=== PATIENT | female | born 1990 | race Asian ===

== ENCOUNTER 2016-08-30 19:42 | Emergency (ER) | payer OTHER ==
[~2016-08-30] VITALS: Ht 154.9 cm; Wt 103.5 kg
[~2016-08-30 19:42] MED LIST: ACET-141 PO; ACET325T33 PO; BENZ100C70 PO; DICY10CA60 PO; FAMO-18 PO; MAG-19 PO; METO10TA92 PO; MUPI22OI2 TOP; NITR-58 PO; OMEP20CA16 PO; ONDA4TAB35 PO; ULT50 PO
[2016-08-30 19:45] VITALS: Ht 154.9 cm; Wt 103.5 kg
[2016-08-30 21:08] LABS: BASOPHILS % 0.1 % (0.0-2.0); EOSINOPHILS # 0.1 10^3/ul (0.0-0.5); EOSINOPHILS % 0.6 % (0.0-7.0); HEMATOCRIT 36.5 % (37.0-47.0); HEMOGLOBIN 12.5 g/dl (12.0-16.0); LYMPHOCYTES # 3.3 10^3/ul (0.8-2.9); LYMPHOCYTES % 29.9 % (15.0-51.0); MEAN CORPUSCULAR HEMOGLOBIN 28.9 pg (29.0-33.0); MEAN CORPUSCULAR HGB CONC 34.3 g/dl (32.0-37.0); MEAN CORPUSCULAR VOLUME 84.2 fl (82.0-101.0); MEAN PLATELET VOLUME 7.6 fl (7.4-10.4); MONOCYTE # 0.6 10^3/ul (0.3-0.9); MONOCYTES % 5.7 % (0.0-11.0); NEUTROPHILS % 63.7 % (39.0-77.0); PLATELET COUNT 262 10^3/UL (140-440); RED BLOOD COUNT 4.33 10^6/ul (4.20-5.40); RED CELL DISTRIBUTION WIDTH 12.6 % (11.5-14.5); UNCORRECTED WBC 10.9 10^3/ul (4.8-10.8); WHITE BLOOD COUNT 10.9 10^3/ul (4.8-10.8)
[2016-08-30 21:12] LABS: ADD UMIC YES; CONDITION 1; URINE BILIRUBIN (Dip) NEGATIVE (NEGATIVE); URINE BLOOD (Dip) TRACE (NEGATIVE); URINE COLOR LT. YELLOW (YELLOW); URINE GLUCOSE (Dip) NEGATIVE (NEGATIVE); URINE KETONES (Dip) NEGATIVE (NEGATIVE); URINE LEUKOCYTE ESTERASE (Dip) TRACE (NEGATIVE); URINE NITRITE (Dip) NEGATIVE (NEGATIVE); URINE TOTAL PROTEIN (Dip) NEGATIVE (NEGATIVE); URINE UROBILINOGEN (Dip) 0.2 E.U./dL (0.1-1.0)
[2016-08-30 21:14] LABS: ALBUMIN 3.9 g/dl (3.3-4.9); POTASSIUM 3.8 mmol/L (3.5-5.1)
[2016-08-30 21:16] LABS: CREATININE 0.53 mg/dl (0.44-1.00)
[2016-08-30 21:17] LABS: ALBUMIN/GLOBULIN RATIO 0.97; CALCIUM 9.2 mg/dl (8.4-10.2); TOTAL PROTEIN 7.9 g/dl (6.1-8.1)
--- NOTE | 2016-08-30 21:24 | RADRPT ---
PROCEDURE: US OB. CLINICAL INDICATION: Abdominal pain, . TECHNIQUE: Multiple sonographic images of the pelvis were obtained. Transabdominal imaging only w as performed. The images were reviewed on a PACS workstation. COMPARISON: No prior studies are available for comparison. FINDINGS: There is a single viable intrauterine gestation. Cardiac activity is present with 154 beats per minute. Measurements were made in order to determine age. The results are as follows: BPD = 2.36 cm HC = 9.16 cm AC = 9.04 cm FL = 1.36 cm Estimated gestational age of approximately 14 weeks 3 days. The estimated date of delivery is 02/25/2017. The EFW = 102 g. The placenta is posterior. There is no evidence for an abruption. There is a normal amount of amniotic fluid. The MVP measures 3.6 cm. IMPRESSION: 1. Single viable intrauterine gestation of approximately 14 weeks 3 days, based on ultrasound measu rements. The estimated date of delivery is 02/25/2017. RPTAT: HTAR .Aman Quintero MD, Date Time Electronically viewed and signed by .Aman Quintero MD, on 08/30/2016 21:23 .R/
[2016-08-30 21:29] LABS: SQUAMOUS EPITHELIAL CELL,UR FEW
[2016-08-30 21:30] LABS: BACTERIA,URINE MODERATE
[2016-08-30] MEDS ORDERED: ONDA4TAB14 PO (22:46)
[2016-08-30] MEDS ORDERED: ALBU8.5H3 INH (22:46)
--- NOTE | 2016-08-30 22:57 | ERD ---
ER Documentation Chief Complaint Date/Time DATE: 08/30/16 TIME: 22:51 Chief Complaint belly pressure/cramps since lasst fostere,15 weeks preg HPI 25-year-old female who is a presents to the ED complaining of lower abdominal pain that started last night. Reports that it feels like a cramping sensation and rates it a 9 out of 10. States that she is also here for medication refill for Zofran as well as her pro-air. States that she feels like she gets nauseous but denies any recent vomiting. Denies any fever, chills , chest pain, shortness of breath. States that her last menses was sometime in May but is unsure of exact date. Denies any vaginal discharge, vaginal bleeding. Denies any dysuria, urgency, frequency. ROS All systems reviewed and are negative except as per history of present illness. Medications Home Meds Active Scripts Albuterol Sulfate* (Proair HFA*) 8.5 Gm Hfa.aer.ad, 2 PUFF INH Q4, #1 INHALER Prov:GABE VERDIN PA-C 08/30/16 Ondansetron (Ondansetron Odt) 4 Mg Tab.rapdis, 4 MG PO Q6H Y for NAUSEA AND/OR VOMITING, #10 TAB Prov:GABE VERDIN PA-C 08/30/16 Metoclopramide* (Reglan*) 10 Mg Tablet, 10 MG PO Q6 Y for NAUSEA AND/OR VOMITING , #15 TAB Prov:APARNA SANCHEZ PA-C 08/04/16 Acetaminophen* (Tylenol*) 325 Mg Tablet, 1 TAB PO Q6 Y for PAIN AND OR ELEVATED TEMP, #20 TAB Prov:JACKELYN LUZ NP 06/28/16 Nitrofurantoin Monohyd Macrocr* (Macrobid*) 100 Mg Capsr, 100 MG PO BID for 5 Days, CAP Prov:JACKELYN LUZ NP 06/28/16 Mupirocin* (Bactroban*) 2% -22 Gram Oint...g., 1 APPLIC TOP BID for 7 Days, EA Prov:GABE VERDIN PA-C 03/09/16 Benzonatate* (Tessalon Perle*) 100 Mg Capsule, 100 MG PO TID, #30 CAP Prov:YUE WESTFALL NP 11/04/15 Acetaminophen* (Acetaminophen*) 500 MG Extra Strength Tablet, 500 MG PO Q4H Y for PAIN AND OR ELEVATED TEMP, #30 TAB Prov:YUE WESTFALL NP 11/04/15 Dicyclomine Hcl* (Bentyl*) 10 Mg Capsule, 10 MG PO QID, #20 CAP Prov:YUE WESTFALL NP 11/04/15 Famotidine* (Pepcid*) 20 Mg Tablet, 20 MG PO BID for 4 Days, TAB Prov:ANDREW WEBER PA-C 07/07/15 Acetaminophen* (Tylenol*) 325 Mg Tablet, 2 TAB PO Q6 Y for PAIN AND OR ELEVATED TEMP, #20 TAB Prov:ANDREW WEBRE PA-C 07/07/15 Magaldrate/Simethicone* (Mylanta*) 355 Ml Susp, 30 ML PO QID Y for GASTROINTESTINAL UPSET, #1 BOTTLE Prov:YUE WESTFALL NP 05/28/15 Omeprazole* (Omeprazole*) 20 Mg Capsule.dr, 20 MG PO DAILY, #30 CAP Prov:YUE WESTFALL NP 05/28/15 Ondansetron Hcl* (Zofran* ODT) 4 mg -ODT Tab.disper, 4 MG PO Q8 Y for NAUSEA AND /OR VOMITING, #30 TAB Prov:YUE WESTFALL NP 05/09/15 Tramadol HCl (Tramadol HCl) 50 Mg Tab, 50 MG PO Q4 Y for PAIN, #20 TAB Prov:QI HENLEY PA-C 05/06/15 Reported Medications [none] Unknown Strength No Conflict Check 11/04/15 [None] No Conflict Check 06/06/12 Allergies Allergies: Coded Allergies: ibuprofen (Verified Allergy, Unknown, 07/03/16) oxycodone (Verified Allergy, Unknown, 07/03/16) PMhx/Soc History of Surgery: Yes (C section) Anesthesia Reaction: No Hx Neurological Disorder: No Hx Respiratory Disorders: No Hx Cardiac Disorders: No Hx Psychiatric Problems: No Hx Miscellaneous Medical Probl: Yes (Hypothyroidism, asthma) Hx Alcohol Use: No Hx Substance Use: No Hx Tobacco Use: No Smoking Status: Never smoker Physical Exam Vitals Vital Signs Date Time Temp Pulse Resp B/P Pulse Ox O2 Delivery O2 Flow Rate FiO2 08/30/16 19:45 98.9 97 20 127/85 99 Physical Exam Const: Ulr-gdb-[id number], well-nourished. In no acute distress. Head: Atraumatic, normocephalic Eyes: Normal Conjunctiva without injection. No purulent discharge. ENT: Normal external ear, nose. Moist oropharynx without tonsillar exudates. Non -erythematous pharynx. Uvula midline. No drooling. No trismus. Neck: No cervical midline tenderness. Full range of motion. No meningismus. No cervical lymphadenopathy. No JVD. Resp: Clear to auscultation bilaterally. No wheezing, rhonchi, rales, or crackles. No accessory muscle use. No retractions. Cardio: Regular rate and rhythm. No murmurs, rubs or gallops. Abd: Soft, slightly tender to palpation of lower abdomen, non distended. Normal bowel sounds. No palpable masses. No rebound tenderness. No guarding. Negative McBurney's point. Negative psoas sign. Negative obturator sign. Skin: No petechiae or rashes Back: No midline tenderness. No CVA tenderness. Ext: No cyanosis, or edema. Neur: Awake and alert. Normal gait. Normal coordination. Psych: Normal Mood and Affect Result Diagram: 08/30/16204308/30/162043 Results 24 hrs Laboratory Tests Test 08/30/16 20:44 Alanine Aminotransferase (ALT/SGPT) 18IU/L Albumin 3.9g/dl Albumin/Globulin Ratio 0.97 Alkaline Phosphatase 67IU/L Anion Gap 19 Aspartate Amino Transf (AST/SGOT) 12IU/L Basophils # 0.010^3/ul Basophils % 0.1% Beta HCG, Quantitative 53170.0mIU/ml Blood Morphology Comment Blood Urea Nitrogen 9mg/dl Calcium Level 9.2mg/dl Carbon Dioxide Level 25mmol/L Chloride Level 103mmol/L Creatinine 0.53mg/dl Direct Bilirubin 0.00mg/dl Eosinophils # 0.110^3/ul Eosinophils % 0.6% Globulin 4.00g/dl Glucose Level 87mg/dl Hematocrit 36.5% Hemoglobin 12.5g/dl Indirect Bilirubin 0.0mg/dl Lipase 52U/L Lymphocytes # 3.310^3/ul Lymphocytes % 29.9% Mean Corpuscular Hemoglobin 28.9pg Mean Corpuscular Hemoglobin Concent 34.3g/dl Mean Corpuscular Volume 84.2fl Mean Platelet Volume 7.6fl Monocytes # 0.610^3/ul Monocytes % 5.7% Neutrophils # 7.010^3/ul Neutrophils % 63.7% Nucleated Red Blood Cells # 0.010^3/ul Nucleated Red Blood Cells % 0.0/100WBC Platelet Count 23635^3/UL Potassium Level 3.8mmol/L Red Blood Count 4.3310^6/ul Red Cell Distribution Width 12.6% Sodium Level 143mmol/L Total Bilirubin 0.0mg/dl Total Protein 7.9g/dl Urine Bacteria MODERATE Urine Bilirubin NEGATIVE Urine Clarity CLEAR Urine Color LT. YELLOW Urine Glucose NEGATIVE% Urine Hemoglobin TRACE Urine Ketones NEGATIVE Urine Leukocyte Esterase TRACE Urine Microscopic RBC 2-5/HPF Urine Microscopic WBC 0-2/HPF Urine Nitrite NEGATIVE Urine Specific [place] 1.025 Urine Squamous Epithelial Cells FEW Urine Total Protein NEGATIVE Urine Urobilinogen 0.2 E.U./dL Urine pH 6.0 White Blood Count 10.910^3/ul Procedures/MDM This is a 25-year-old female who is a presents the ED complaining of lower abdominal pain that started last night. Patient is afebrile nontoxic appearing. Patient has normal vital signs. An ultrasound, beta-hCG, CBC, type and RH, UA was ordered to evaluate patient. CBC: No evidence of severe infection or anemia Urine: No elevation in nitrites, leukocyte esterase, hematuria. No evidence of UTI Rh: A positive. No indication for Rhogam at this time. beta Hc PROCEDURE: US OB. CLINICAL INDICATION: Abdominal pain, . TECHNIQUE: Multiple sonographic images of the pelvis were obtained. Transabdominal imaging only was performed. The images were reviewed on a PACS workstation. COMPARISON: No prior studies are available for comparison. FINDINGS: There is a single viable intrauterine gestation. Cardiac activity is present with 154 beats per minute. Measurements were made in order to determine age. The results are as follows: BPD = 2.36 cm HC = 9.16 cm AC = 9.04 cm FL = 1.36 cm Estimated gestational age of approximately 14 weeks 3 days. The estimated date of delivery is 02/25/2017. The EFW = 102 g. The placenta is posterior. There is no evidence for an abruption. There is a normal amount of amniotic fluid. The MVP measures 3.6 cm. IMPRESSION: 1. Single viable intrauterine gestation of approximately 14 weeks 3 days, based on ultrasound measurements. The estimated date of delivery is 02/25/2017. Low suspicion for symptomatic anemia, ectopic , sepsis, PID, appendicitis, placenta previa, placenta abruptio, ovarian torsion, tubo-ovarian abscess, surgical abdomen, or other emergent conditions. Patient was educated that there is a risk for threatened . Discharge: Refill for Lon Cummings Patient to follow up with WAVE SOLDERING MACHINE OPERATOR in 2 days for further evaluation and treatment. Patient is to return sooner to the ED for any worsening symptoms. Patient's questions were answered. Patient understood and agreed with discharge plan. Departure Diagnosis: Primary Impression: Abdominal pain in Trimester: second trimester Qualified Code: O26.892 - Abdominal pain in , second trimester Additional Impression: Medication refill Condition: Stable Patient Instructions: : Your Second Trimester Changes, Adapting to : Second Trimester, : Body Changes Referrals: COMMUNITY CLINICS YOU HAVE RECEIVED A MEDICAL SCREENING EXAM AND THE RESULTS INDICATE THAT YOU DO NOT HAVE A CONDITION THAT REQUIRES URGENT TREATMENT IN THE EMERGENCY DEPARTMENT. FURTHER EVALUATION AND TREATMENT OF YOUR CONDITION CAN WAIT UNTIL YOU ARE SEEN IN YOUR DOCTORS OFFICE WITHIN THE NEXT 1-2 DAYS. IT IS YOUR RESPONSIBILITY TO MAKE AN APPOINTMENT FOR FOLOW-UP CARE. IF YOU HAVE A PRIMARY DOCTOR --you should call your primary doctor and schedule an appointment IF YOU DO NOT HAVE A PRIMARY DOCTOR YOU CAN CALL OUR PHYSICIAN REFERRAL HOTLINE AT IF YOU CAN NOT AFFORD TO SEE A PHYSICIAN YOU CAN CHOSE FROM THE FOLLOWING [facility] [address] [facility] [address] [facility] [address] [facility] [address] [facility] [address] [facility]. [facility] [address] [facility]. [facility] YOU HAVE RECEIVED A MEDICAL SCREENING EXAM AND THE RESULTS INDICATE THAT YOU DO NOT HAVE A CONDITION THAT REQUIRES URGENT TREATMENT IN THE EMERGENCY DEPARTMENT. FURTHER EVALUATION AND TREATMENT OF YOUR CONDITION CAN WAIT UNTIL YOU ARE SEEN IN YOUR DOCTORS OFFICE WITHIN THE NEXT 1-2 DAYS. IT IS YOUR RESPONSIBILITY TO MAKE AN APPOINTMENT FOR FOLOW-UP CARE. IF YOU HAVE A PRIMARY DOCTOR --you should call your primary doctor and schedule and appointment IF YOU DO NOT HAVE A PRIMARY DOCTOR YOU CAN CALL OUR PHYSICIAN REFERRAL HOTLINE AT . IF YOU CAN NOT AFFORD TO SEE A PHYSICIAN YOU CAN CHOSE FROM THE FOLLOWING [facility]: [facility] [address] [place] [address] [facility] [address] [place] [address] [facility] [address] [place] [address] WAVE SOLDERING MACHINE OPER[place] [address] [facility] [address] [place] [address]ABUSLEME [facility] [address] [place] [place] [id number] [facility] [address] [place] [address] [facility] [address] [address] [facility] [facility] [address] [address] [place], [place] [id number] [facility] [address] [place], [place] [address] [address] [facility] [address] - LAURI DIAZ [address], [facility] [address] [address], EVELYN [address] [facility]. [address], [place] [address] KHUSHI PRATHER [address] [place] [address] [facility] Hours: 8:00 am - 5:00 pm Additional Instructions: FOLLOW UP WITH YOUR WAVE SOLDERING MACHINE OPERATOR TOMORROW. Return to this facility if you are not improving as expected. GABE VERDIN PA-C Aug 30, 2016 22:56 GABE VERDIN PA-C Aug 30, 2016 22:56
== END 2016-08-30 22:54 | disposition home or self-care (01) ==
LOC: FTE 19:42
DX: O26.892 Other specified pregnancy related conditions, second trimester (principal); R10.30 Lower abdominal pain, unspecified; R11.0 Nausea; O99.512 Diseases of the respiratory system complicating pregnancy, second trimester; J45.909 Unspecified asthma, uncomplicated; E03.9 Hypothyroidism, unspecified; O99.282 Endocrine, nutritional and metabolic diseases complicating pregnancy, second trimester; Z3A.14 14 weeks gestation of pregnancy; Z76.0 Encounter for issue of repeat prescription
CPT/HCPCS: 36415; 76805; 80053; 81001; 83690; 84702; 85025; 86900; 86901; Z7502; 81003

== ENCOUNTER 2016-09-25 10:43 | Emergency (ER) | payer OTHER ==
[~2016-09-25] VITALS: Wt 101.0 kg
[~2016-09-25 10:43] MED LIST changes: +ALBU8.5H3 INH; +ONDA4TAB14 PO; +TRAM50TA2 PO; -ULT50 PO
[2016-09-25 12:30] LABS: BASOPHILS % 0.2 % (0.0-2.0); EOSINOPHILS # 0.1 10^3/ul (0.0-0.5); EOSINOPHILS % 0.6 % (0.0-7.0); HEMATOCRIT 38.5 % (37.0-47.0); LYMPHOCYTES # 2.4 10^3/ul (0.8-2.9); LYMPHOCYTES % 21.7 % (15.0-51.0); MEAN CORPUSCULAR HEMOGLOBIN 28.5 pg (29.0-33.0); MEAN CORPUSCULAR HGB CONC 33.7 g/dl (32.0-37.0); MEAN CORPUSCULAR VOLUME 84.6 fl (82.0-101.0); MEAN PLATELET VOLUME 7.5 fl (7.4-10.4); MONOCYTE # 0.5 10^3/ul (0.3-0.9); MONOCYTES % 4.5 % (0.0-11.0); NEUTROPHIL # 7.9 10^3/ul (1.6-7.5); PLATELET COUNT 276 10^3/UL (140-440); RED BLOOD COUNT 4.56 10^6/ul (4.20-5.40); RED CELL DISTRIBUTION WIDTH 12.8 % (11.5-14.5); UNCORRECTED WBC 10.8 10^3/ul (4.8-10.8); WHITE BLOOD COUNT 10.8 10^3/ul (4.8-10.8)
[2016-09-25 12:50] LABS: CONDITION 1
[2016-09-25 13:01] LABS: ADD UMIC YES; URINE BILIRUBIN (Dip) NEGATIVE (NEGATIVE); URINE BLOOD (Dip) TRACE (NEGATIVE); URINE COLOR LT. YELLOW (YELLOW); URINE GLUCOSE (Dip) NEGATIVE (NEGATIVE); URINE KETONES (Dip) NEGATIVE (NEGATIVE); URINE LEUKOCYTE ESTERASE (Dip) NEGATIVE (NEGATIVE); URINE NITRITE (Dip) NEGATIVE (NEGATIVE); URINE TOTAL PROTEIN (Dip) NEGATIVE (NEGATIVE); URINE UROBILINOGEN (Dip) 0.2 E.U./dL (0.1-1.0)
[2016-09-25 13:19] LABS: BACTERIA,URINE MODERATE; SQUAMOUS EPITHELIAL CELL,UR MODERATE; URINE RBCS 0-2 /HPF (0)
--- NOTE | 2016-09-25 13:26 | RADRPT ---
PROCEDURE: US OB. CLINICAL INDICATION: Size and dates , vaginal bleeding TECHNIQUE: Multiple sonographic images of the pelvis and gravid uterus were obtained. The images were reviewed on a PACS workstation. COMPARISON: 08/30/2016 FINDINGS: There is a single viable intrauterine gestation. Cardiac activity is present with 156 beats per min kvng. There is a breech presentation. The placenta is posterior. There is no evidence for an abruption or placenta previa. There is a normal amount of amniotic fluid with a MVP= 3.6 cm. Measurements were made in order to determine age. The results are as follows: BPD =4.0 cm HC =15.1 cm AC =12.7 cm FL =2.4 cm Estimated gestational age of approximately 18 weeks and 0 days based on ultrasound measurements. Clinical age: 18 weeks and 1 day. The estimated date of delivery is 02/26/17, based on ultrasound measurements. The EFW = 214 g, 30.1%, based on LMP age. RPTAT: AA IMPRESSION: Single viable intrauterine gestation of approximately 18 weeks and 0 days based on ultrasound measu rements. .Nas Juarez MD, Date Time Electronically viewed and signed by .Nas Juarez MD, on 09/25/2016 13:25 .S/
--- NOTE | 2016-09-25 13:34 | ERD ---
ER Documentation Chief Complaint Date/Time DATE: 09/25/16 TIME: 13:34 Chief Complaint vaginal bleeding for 2 days. 18 wks preg. mild dysuria per pt ROS All systems reviewed and are negative except as per history of present illness. Medications Home Meds Active Scripts Albuterol Sulfate* (Proair HFA*) 8.5 Gm Hfa.aer.ad, 2 PUFF INH Q4, #1 INHALER Prov:GABE VERDIN PA-C 08/30/16 Ondansetron (Ondansetron Odt) 4 Mg Tab.rapdis, 4 MG PO Q6H Y for NAUSEA AND/OR VOMITING, #10 TAB Prov:GABE VERDIN PA-C 08/30/16 Metoclopramide* (Reglan*) 10 Mg Tablet, 10 MG PO Q6 Y for NAUSEA AND/OR VOMITING , #15 TAB Prov:APARNA SANCHEZ PA-C 08/04/16 Acetaminophen* (Tylenol*) 325 Mg Tablet, 1 TAB PO Q6 Y for PAIN AND OR ELEVATED TEMP, #20 TAB Prov:JACKELYN LUZ NP 06/28/16 Nitrofurantoin Monohyd Macrocr* (Macrobid*) 100 Mg Capsr, 100 MG PO BID for 5 Days, CAP Prov:JACKELYN LUZ NP 06/28/16 Mupirocin* (Bactroban*) 2% -22 Gram Oint...g., 1 APPLIC TOP BID for 7 Days, EA Prov:GABE VERDIN PA-C 03/09/16 Benzonatate* (Tessalon Perle*) 100 Mg Capsule, 100 MG PO TID, #30 CAP Prov:YUE WESTFALL NP 11/04/15 Acetaminophen* (Acetaminophen*) 500 MG Extra Strength Tablet, 500 MG PO Q4H Y for PAIN AND OR ELEVATED TEMP, #30 TAB Prov:YUE WESTFALL NP 11/04/15 Dicyclomine Hcl* (Bentyl*) 10 Mg Capsule, 10 MG PO QID, #20 CAP Prov:YUE WESTFALL NP 11/04/15 Famotidine* (Pepcid*) 20 Mg Tablet, 20 MG PO BID for 4 Days, TAB Prov:ANDREW WEBER PA-C 07/07/15 Acetaminophen* (Tylenol*) 325 Mg Tablet, 2 TAB PO Q6 Y for PAIN AND OR ELEVATED TEMP, #20 TAB Prov:ANDREW EWBER PA-C 07/07/15 Magaldrate/Simethicone* (Mylanta*) 355 Ml Susp, 30 ML PO QID Y for GASTROINTESTINAL UPSET, #1 BOTTLE Prov:YUE WESTFALL NP 05/28/15 Omeprazole* (Omeprazole*) 20 Mg Capsule.dr, 20 MG PO DAILY, #30 CAP Prov:YUE WESTFALL NP 05/28/15 Ondansetron Hcl* (Zofran* ODT) 4 mg -ODT Tab.disper, 4 MG PO Q8 Y for NAUSEA AND /OR VOMITING, #30 TAB Prov:YUE WESTFALL NP 05/09/15 Tramadol HCl (Tramadol HCl) 50 Mg Tab, 50 MG PO Q4 Y for PAIN, #20 TAB Prov:QI HENLEY PA-C 05/06/15 Reported Medications [none] Unknown Strength No Conflict Check 11/04/15 [None] No Conflict Check 06/06/12 Allergies Allergies: Coded Allergies: ibuprofen (Verified Allergy, Unknown, 07/03/16) oxycodone (Verified Allergy, Unknown, 07/03/16) PMhx/Soc History of Surgery: Yes (C section) Anesthesia Reaction: No Hx Neurological Disorder: No Hx Respiratory Disorders: No Hx Cardiac Disorders: No Hx Psychiatric Problems: No Hx Miscellaneous Medical Probl: Yes (Hypothyroidism, asthma) Hx Alcohol Use: No Hx Substance Use: No Hx Tobacco Use: No Physical Exam Vitals Vital Signs Date Time Temp Pulse Resp B/P Pulse Ox O2 Delivery O2 Flow Rate FiO2 09/25/16 10:46 98.6 96 20 128/82 98 Physical Exam Const: [] Head: Atraumatic Eyes: Normal Conjunctiva ENT: Normal External Ears, Nose and Mouth. Neck: Full range of motion..~ No meningismus. Resp: Clear to auscultation bilaterally Cardio: Regular rate and rhythm, no murmurs Abd: Soft, non tender, non distended. Normal bowel sounds Skin: No petechiae or rashes Back: No midline or flank tenderness Ext: No cyanosis, or edema Neur: Awake and alert Psych: Normal Mood and Affect Result Diagram: 09/25/16 1215 Results 24 hrs Laboratory Tests Test 09/25/16 12:15 Basophils # 0.010^3/ul Basophils % 0.2% Beta HCG, Quantitative 62484.0mIU/ml Blood Morphology Comment Eosinophils # 0.110^3/ul Eosinophils % 0.6% Hematocrit 38.5% Hemoglobin 13.0g/dl Lymphocytes # 2.410^3/ul Lymphocytes % 21.7% Mean Corpuscular Hemoglobin 28.5pg Mean Corpuscular Hemoglobin Concent 33.7g/dl Mean Corpuscular Volume 84.6fl Mean Platelet Volume 7.5fl Monocytes # 0.510^3/ul Monocytes % 4.5% Neutrophils # 7.910^3/ul Neutrophils % 73.0% Nucleated Red Blood Cells # 0.010^3/ul Nucleated Red Blood Cells % 0.0/100WBC Platelet Count 98300^3/UL Red Blood Count 4.5610^6/ul Red Cell Distribution Width 12.8% Urine Bacteria MODERATE Urine Bilirubin NEGATIVE Urine Clarity CLEAR Urine Color LT. YELLOW Urine Glucose NEGATIVE% Urine Hemoglobin TRACE Urine Ketones NEGATIVE Urine Leukocyte Esterase NEGATIVE Urine Microscopic RBC 0-2/HPF Urine Microscopic WBC 0-2/HPF Urine Nitrite NEGATIVE Urine Specific [place] 1.020 Urine Squamous Epithelial Cells MODERATE Urine Total Protein NEGATIVE Urine Urobilinogen 0.2 E.U./dL Urine pH 6.0 White Blood Count 10.810^3/ul Procedures/MDM PROCEDURE: US OB. CLINICAL INDICATION: Size and dates , vaginal bleeding TECHNIQUE: Multiple sonographic images of the pelvis and gravid uterus were obtained. The images were reviewed on a PACS workstation. COMPARISON: 08/30/2016 FINDINGS: There is a single viable intrauterine gestation. Cardiac activity is present with 156 beats per minute. There is a breech presentation. The placenta is posterior. There is no evidence for an abruption or placenta previa. There is a normal amount of amniotic fluid with a MVP= 3.6 cm. Measurements were made in order to determine age. The results are as follows: BPD = 4.0 cm HC = 15.1 cm AC = 12.7 cm FL = 2.4 cm Estimated gestational age of approximately 18 weeks and 0 days based on ultrasound measurements. Clinical age: 18 weeks and 1 day. The estimated date of delivery is 02/26/17, based on ultrasound measurements. The EFW = 214 g, 30.1%, based on LMP age. RPTAT: AA IMPRESSION: Single viable intrauterine gestation of approximately 18 weeks and 0 days based on ultrasound measurements. Departure Diagnosis: Primary Impression: Vaginal bleeding in patient at less than 20 weeks gestation Condition: Stable Additional Instructions: Follow-up with your primary care physician within 1 week. Return to the emergency department immediately should you have any new or worsening symptoms, uncontrolled fevers, or other unexplained symptoms. Take all medications as directed. CHIRAG OZUNA PA-C Sep 25, 2016 13:34
== END 2016-09-25 14:36 | disposition home or self-care (01) ==
LOC: FTE 10:43
DX: O20.9 Hemorrhage in early pregnancy, unspecified (principal); E03.9 Hypothyroidism, unspecified; J45.909 Unspecified asthma, uncomplicated; O99.282 Endocrine, nutritional and metabolic diseases complicating pregnancy, second trimester; O99.512 Diseases of the respiratory system complicating pregnancy, second trimester; Z3A.18 18 weeks gestation of pregnancy
CPT/HCPCS: 36415; 76805; 81001; 81003; 84702; 85025; 86900; 86901; Z7502

== ENCOUNTER 2016-10-08 15:23 | Inpatient (IN) | payer OTHER ==
[~2016-10-08] VITALS: Ht 154.9 cm; Wt 104.4 kg
[2016-10-08] MEDS ORDERED: PRENAT PO (15:57)
[2016-10-08 15:58] VITALS: Ht 154.9 cm; Wt 104.4 kg
[2016-10-08] MEDS ORDERED: FERR325C PO (15:58)
[2016-10-08 15:59] VITALS: BP 119/66; PULSE 110; RESP 18
--- NOTE | 2016-10-08 18:03 | HP ---
Date/Time of Note Date/Time of Note DATE: 10/08/16 TIME: 17:57 OB - History Hx of Present Free Text/Dictation 27 y/o female admitted for sugar control FBS this AM:170 Chief Complaint: vaginal bleeding yesterday Estimated Due Date: Mar 04, 2017 : 3 Para: 2 Care: Limited Care Ultrasounds: No ultrasounds Obstetrical Complications: Gestational Diabetes (with previous 2 pregnancies ) Medical Complications: Other (previous C/S X 2 ) Past Family/Social History * Past Medical, Surgical, Family and Obstetric Histories reviewed from chart. Blood Type: A+ Rubella: immune RPR/VDRL: Negative GBS Status: Unknown HBsAG: Negative OB Admission Exam Vital Signs Vital Signs Vital Signs Date Time Temp Pulse Resp B/P Pulse Ox O2 Delivery O2 Flow Rate FiO2 10/08/16 15:59 98.6 110 18 119/66 Room Air Physical Exam HEENT: WNL Heart: Rhythm Normal Lungs: Clear, Equal Abdomen: WNL Extremities: Normal Reflexes: Normal Cervical Dilatation: None Effacement: 0% Station: -3 Membranes: Intact Heart Rate: 150's Contractions on Admission: None OB Assessment/Plan Other Assessment: 20+ weeks gestation gestational diabetes Other plan: sugar control start on sliding scale insulin and diet CHIQUITA LOMBARDI MD Oct 08, 2016 18:03
--- NOTE | 2016-10-08 18:49 | RADRPT ---
PROCEDURE: US OB CLINICAL INDICATION: CRAMPING TECHNIQUE: Multiple sonographic images of the pelvis were obtained. The images were reviewed on a PACS workstation. COMPARISON: Obstetrical ultrasound from 09/25/2016 FINDINGS: The cervix is closed with a length of 4.5 cm. There is a single viable intrauterine gestation. Cardiac activity is present with 143 beats per minute. There is a vertex presentation. The placenta is posterior. There is no evidence for an abruption or placenta previa. There is a normal amount of amniotic fluid with a maximum vertical pocket of 5.4 cm. Measurements were made in order to determine age. The results are as follows (cm): BPD =4.65 HC =17.32 AC =16.29 FL =3.13 Estimated gestational age by ultrasound of approximately 20 weeks, 2 days. The estimated date of delivery by ultrasound is 02/23/2017. Reported gestational age by LMP of approximately 20 weeks, 3 days. The reported date of delivery by LMP is 02/22/2017. EFW = 359 grams (50th percentile) IMPRESSION: Single viable intrauterine gestation of approximately 20 weeks, 2 days . The estimated date of delivery is 02/23/2017 . Dating by ultrasound is within 1 day of dating by LMP. Estimated weight in the 50th percentile. RPTAT: EE Physician Jake Date Time Electronically viewed and signed by Physician Jake on 10/08/2016 18:49 RA/
[2016-10-09] MEDS: ACCUCHECK XX SCH ×3 (07:40→14:32)
[2016-10-09] MEDS ORDERED: FERROUS SULFATE (EC) 325 MG TAB PO SCH (09:00)
[2016-10-09] MEDS ORDERED: MULTIVIT/MIN/FOLATE/IRON/PREN TAB PO SCH (09:00)
--- NOTE | 2016-10-09 14:26 | PERINOTE ---
Date/Time of Note Date/Time of Note DATE: 10/09/16 TIME: 14:22 OB Subjective Free Text/Dictaton Patient admitted for presumed labor HD# 2 IUP @ 32W2D Complaints/Overnight events Patient had a reaction to magnesium sulfate with tachycardia and shortness of breath Current Medications Current Medications Prenat Multivit/ Chase/Iron/Folic Ac ( S) 1 tab DAILY PO Last administered on 10/09/16 09:38; Admin Dose 1 TAB; Start 10/09/16 at 09:00 Ferrous Sulfate (Ferrous Sulfate (Ec)) 325 mg DAILY PO Last administered on 09:38; Admin Dose 325 MG; Start 10/09/16 at 09:00 Diagnostic Test (Pha) (Accucheck) 1 ea FBSPP XX Last administered on 10/09/16 10:02; Admin Dose 1 EA; Start 10/09/16 at 07:30 Past Medical History Medical History: no pertinent history OB Admission Exam Physical Exam Vitals: Vital Signs Date Time Temp Pulse Resp B/P Pulse Ox O2 Delivery O2 Flow Rate FiO2 10/08/16 15:59 98.6 110 18 119/66 Room Air Last 72 hourBlood Glucose Bedside Glucose - 72 Hours Test 10/08/16 22:34 10/09/16 07:26 10/09/16 11:38 Bedside Glucose 121mg/dL (70-220) 88mg/dL (70-220) 90mg/dL (70-220) DENISHA GARCIA MD Oct 09, 2016 14:26
--- NOTE | 2016-10-09 14:33 | PERINOTE ---
Date/Time of Note Date/Time of Note DATE: 10/09/16 TIME: 14:27 Assessment/Recommendations Other Assessments Patient with a history of delivery in her prior and with UCs in this . Patient does not tolerate terbutaline or magnesium sulfate Patient has received a course of betamethasone on a prior admission Patient's cervix was 4cm. I have reviewed these images Recommendations: Given this patient's difficulties with tocolytics and her long cervix, I would not plan additional tocolysis. Alternatively she could be started on a regimen of nifedipine. Would not repeat the betamethasone unless/until the patient's cervix changes significantly. OB Subjective Free Text/Dictaton Patient admitted for presumed labor HD# 2 IUP @ 32W3D Complaints/Overnight events Patient had a reaction to magnesium sulfate with tachycardia and shortness of breath Current Medications Current Medications Prenat Multivit/ Svp Programmatic Tv/Iron/Folic Ac ( S) 1 tab DAILY PO Last administered on 10/09/16 09:38; Admin Dose 1 TAB; Start 10/09/16 at 09:00 Ferrous Sulfate (Ferrous Sulfate (Ec)) 325 mg DAILY PO Last administered on 09:38; Admin Dose 325 MG; Start 10/09/16 at 09:00 Diagnostic Test (Pha) (Accucheck) 1 ea FBSPP XX Last administered on 10/09/16 10:02; Admin Dose 1 EA; Start 10/09/16 at 07:30 Past Medical History Medical History: no pertinent history Surgical History: other (Cesarian deliveries) Para: 3 : 5 LMP (Females 10-50): OB Admission Exam Physical Exam Vitals: Vital Signs Date Time Temp Pulse Resp B/P Pulse Ox O2 Delivery O2 Flow Rate FiO2 10/08/16 15:59 98.6 110 18 119/66 Room Air Abdomen: WNL Heart Rate: 120's Accelerations: Accelerations Present Decelerations: No Decelerations Varibility: Moderate Contractions on Admission: 6-10 Minutes Apart (irregular) Last 72 hourBlood Glucose Bedside Glucose - 72 Hours Test 10/08/16 22:34 10/09/16 07:26 10/09/16 11:38 Bedside Glucose 121mg/dL (70-220) 88mg/dL (70-220) 90mg/dL (70-220) Copies To: CC: CHIQUITA LOMBARDI MD, MARIE H MD Oct 09, 2016 14:33
--- NOTE | 2016-10-09 14:50 | PERINOTE ---
Date/Time of Note Date/Time of Note DATE: 10/09/16 TIME: 14:45 Assessment/Recommendations Other Assessments Gestational diabetes, poorly controlled at home but apparently well controlled with diet in the hospital. Recommendations: Would consider D/C home on current regimen with follow up in perinatology in one week OB Subjective Free Text/Dictaton Pattient admitted for blood glucose control HD# 2 IUP @ 20W4D Complaints/Overnight events None Current Medications Current Medications Prenat Multivit/ Labor Mediator/Iron/Folic Ac ( S) 1 tab DAILY PO Last administered on 10/09/16 09:38; Admin Dose 1 TAB; Start 10/09/16 at 09:00 Ferrous Sulfate (Ferrous Sulfate (Ec)) 325 mg DAILY PO Last administered on 09:38; Admin Dose 325 MG; Start 10/09/16 at 09:00 Diagnostic Test (Pha) (Accucheck) 1 ea FBSPP XX Last administered on 10/09/16 14:32; Admin Dose 1 EA; Start 10/09/16 at 07:30 Past Medical History Medical History: no pertinent history Surgical History: other (Cesarian deliveries) Para: 2 : 3 LMP (Females 10-50): OB Admission Exam Physical Exam Vitals: Vital Signs Date Time Temp Pulse Resp B/P Pulse Ox O2 Delivery O2 Flow Rate FiO2 10/08/16 15:59 98.6 110 18 119/66 Room Air Last 72 hourBlood Glucose Bedside Glucose - 72 Hours Test 10/08/16 22:34 10/09/16 07:26 10/09/16 11:38 Bedside Glucose 121mg/dL (70-220) 88mg/dL (70-220) 90mg/dL (70-220) Copies To: CC: CHIQUITA LOMBARDI MD, MARIE H MD Oct 09, 2016 14:50
--- NOTE | 2016-10-09 18:07 | DS ---
Date/Time of Note Date/Time of Note home on diet DATE: 10/09/16 TIME: 18:04 Obstetrical Discharge Record Final Diagnosis Final Diagnosis: not delivered Other Final Diagnosis gestational DM out of control Complications Gestational Diabetes Condition on Discharge Physical Assessment Voiding: Yes Bowel Movement: Yes Breast: Soft, non-tender, Filling Fundus: Other (gravid ) Abdomen and Incision: soft Episiotomy: NA Calf Tenderness: No Patient Condition: Good CHIQUITA LOMBARDI MD Oct 09, 2016 18:07
--- NOTE | 2016-10-09 18:09 | PD.PPDC ---
[employer]ET[employer]GER Discharge Instruction Provider Information Physician Information 26 y/o female had sugar control on diet Condition Patient Condition: Good Diet Diet: Special Diet Special Diet: 200 larisa ADA Activity/Restrictions Activity: Normal Activity May Shower Return to Work or School: Oct 12, 2016 Follow-up Follow-up with Physician: 1, Week/Weeks Return to clinic for OB Instructions: Breast Tenderness Depression CHIQUITA LOMBARDI MD Oct 09, 2016 18:08
== END 2016-10-09 18:32 | disposition home or self-care (01) | DRG 781 ==
LOC: OBT 15:23 → L-D 15:23 → OBT 19:06 → OBG 19:08
PROVIDERS: ADMIT Obstetrics & Gynecology; ATTEND Obstetrics & Gynecology
DX: O24.419 Gestational diabetes mellitus in pregnancy, unspecified control (principal); Z3A.20 20 weeks gestation of pregnancy
CPT/HCPCS: 76815; 76817; 82962; G0463

== ENCOUNTER 2016-10-18 22:15 | Outpatient (CLI) | payer OTHER ==
[~2016-10-18] VITALS: Ht 154.9 cm; Wt 107.3 kg
[~2016-10-18 22:15] MED LIST changes: -ACET-141 PO; -ACET325T33 PO; -ALBU8.5H3 INH; -BENZ100C70 PO; -DICY10CA60 PO; -FAMO-18 PO; +FERR325C PO; -MAG-19 PO; -METO10TA92 PO; -MUPI22OI2 TOP; -NITR-58 PO; -OMEP20CA16 PO; -ONDA4TAB14 PO; -ONDA4TAB35 PO; +PRENAT PO; -TRAM50TA2 PO
[2016-10-18 22:23] VITALS: Ht 154.9 cm; Wt 107.3 kg
[2016-10-18 23:22] LABS: ADD UMIC NO; URINE BILIRUBIN (Dip) NEGATIVE (NEGATIVE); URINE BLOOD (Dip) NEGATIVE (NEGATIVE); URINE COLOR LT. YELLOW (YELLOW); URINE KETONES (Dip) TRACE (NEGATIVE); URINE LEUKOCYTE ESTERASE (Dip) NEGATIVE (NEGATIVE); URINE NITRITE (Dip) NEGATIVE (NEGATIVE); URINE TOTAL PROTEIN (Dip) NEGATIVE (NEGATIVE); URINE UROBILINOGEN (Dip) 0.2 E.U./dL (0.1-1.0)
--- NOTE | 2016-10-18 23:51 | HP ---
Date/Time of Note Date/Time of Note DATE: 10/18/16 TIME: 23:46 OB - History Hx of Present Free Text/Dictation OB Triage Pt is a 26yo at 21+3 with diet controlled GDM who presents to [facility] with c /o lower abdominal pressure x2d. Pt reports hx of PIH and GDM with prior two pregnancies, one delivered at 37wks GA. Pt reports normal FM, denies LOF or VB. On review of pt chart, she was recently admitted on 10/08/16 for glycemic control and vaginal bleeding. TVCL at that time was 4.5cm. FSBG were found to be well-controlled on diabetic diet and recs from Dr. Bardales were for pt to continue checking BG 4x/day and f/u with Perinatology 1 wk from discharge. Pt states her values are not consistent- some times wnl and some times elevated. Per pt, Fasting FSBG this AM 47, normal after breakfast and lunch meals. Ate dinner after 8pm tonight PROCEDURE: ULTRASOUND OBSTETRICAL CLINICAL INDICATION: 26-year-old female in labor for presentation. TECHNIQUE: Multiple sonographic images of the pelvis were obtained. The images were reviewed on a PACS workstation. COMPARISON: Ultrasound OB October 08, 2016. FINDINGS: The cervix is closed with a length of 4.0 cm measured transvaginally. There is a single viable intrauterine gestation. Cardiac activity is present with 150 beats per minute. There is a vertex presentation. The placenta is posterior. There is no evidence for an abruption or placenta previa. IMPRESSION: 1. Single viable intrauterine gestation with vertex presentation. 2. The cervix appears closed with a length of 4.0 cm. Care: Good Care Obstetrical Complications: Gestational Diabetes OB Admission Exam Vital Signs Vital Signs T 98.0 BP 118/57 HR 99 FSBG 161 Physical Exam Heart Rate: 150's (via doppler) Contractions on Admission: None OB Assessment/Plan Other Assessment: Lower abdominal pressure without e/o UTI or PTL Other plan: Pt appropriate for d/c home Strict PTL and PPROM precautions reviewed Pt encouraged to increase PO hydration Pt instructed to f/up as outpatient with primary OB (10/28/16) and Perinatology () as scheduled Questions answered to her satisfaction VALENTINO GRIMALDO MD Oct 18, 2016 23:51
--- NOTE | 2016-10-18 23:53 | RADRPT ---
PROCEDURE: ULTRASOUND OBSTETRICAL CLINICAL INDICATION: 26-year-old female in labor for presentation. TECHNIQUE: Multiple sonographic images of the pelvis were obtained. The images were reviewed on a PACS workstation. COMPARISON: Ultrasound OB October 08, 2016. FINDINGS: The cervix is closed with a length of 4.0 cm measured transvaginally. There is a single viable intra uterine gestation. Cardiac activity is present with 150 beats per minute. There is a vertex present ation. The placenta is posterior. There is no evidence for an abruption or placenta previa. IMPRESSION: 1. Single viable intrauterine gestation with vertex presentation. 2. The cervix appears closed with a length of 4.0 cm. .Michel Quiñonez MD, Date Time Electronically viewed and signed by .Michel Quiñonez MD, on 10/18/2016 23:53 .M/
--- NOTE | 2016-10-19 00:47 | TRIAGE ---
OB Triage Datetime Report Generated by CPN: 10/19/2016 00:46 Datetime: 10/19/2016 22:45 Assessment Type: Triage Maternal Assessment Level of Consciousness: Fully Conscious DTR's/Clonus: DTRs 2+; No Clonus Headache: Denies Blurred Vision: No Respiratory Effort: Unlabored; Regular Rhythm; Equal Expansion Nausea/Vomiting: Denies RUQ Epigastric Pain: Denies Lower Extremities Edema: Bilateral Lower Extremities Degree: OBESE PT. Upper Extremities Edema: None Facial Edema: None Fall Risk Assessment History of Falling: (0) No Secondary Diagnosis: (0) No Ambulatory Aid: (0) Bedrest/Nurse Assist IV Therapy: (0) No Gait: (0) Normal/Bedrest/Immobile Mental Status: (0) Oriented to Own Ability Fall Score: 0 Fall Risk Score Definition: No Risk: No action required Datetime: 10/19/2016 00:10 Stage of : OB Triage Labor Evaluation Frequency: 0 Monitor Mode: External Resting Tone Pottery Addition: Relaxed Datetime: 10/18/2016 23:47 Stage of : OB Triage Bedside Blood Glucose: 161 Datetime: 10/18/2016 23:10 Stage of : OB Triage Temperature Route: Oral Labor Evaluation Frequency: 0 Monitor Mode: External Resting Tone Pottery Addition: Relaxed Heart Rate FHR Baseline Rate: 150 Monitor Mode: Doppler Pain Assessment Pain Scale: 3 Pain Presence: Intermittent Pain Type: Pressure Pain Location: Abdomen Pain Relief Measures: Comfort Measures Datetime: 10/18/2016 22:25 Time of Arrival: 10/18/2016 22:07 EGA: 21.3 Arrived By: Ambulatory Arrived From: Home Chief Complaint: ABD PAIN AND PRESSURE Movement: Present Contractions: Occasional Rupture of Membranes: Denies Vaginal Bleeding: None Vaginal Discharge: Denies Recent Sexual Intercouse: Denies (Annotations: Data stored by N on behalf of user) Patient Complaints: None Time Provider Notified: 10/18/2016 22:40 Provider Notified: DILLAN Initial Plan: EFM, ASSESSMENT, CALL MD FOR ORDERS Datetime: 10/09/2016 18:00 Stage of : Antepartum Maternal Assessment Level of Consciousness: Fully Conscious Headache: Denies Nausea/Vomiting: Denies RUQ Epigastric Pain: Denies Labor Evaluation Frequency: 0/hr Monitor Mode: External Datetime: 10/09/2016 17:00 Stage of : Antepartum Maternal Assessment Level of Consciousness: Fully Conscious Headache: Denies Nausea/Vomiting: Denies RUQ Epigastric Pain: Denies Labor Evaluation Frequency: 0/hr Monitor Mode: External Datetime: 10/09/2016 16:00 Stage of : Antepartum Maternal Assessment Level of Consciousness: Fully Conscious Headache: Denies Nausea/Vomiting: Denies RUQ Epigastric Pain: Denies Labor Evaluation Frequency: 0/hr Monitor Mode: External Datetime: 10/09/2016 15:00 Bedside Blood Glucose: 116 Datetime: 10/09/2016 14:00 Stage of : Antepartum Maternal Assessment Level of Consciousness: Fully Conscious Headache: Denies Nausea/Vomiting: Denies RUQ Epigastric Pain: Denies Labor Evaluation Frequency: 0/hr Monitor Mode: External Datetime: 10/09/2016 13:00 Stage of : Antepartum Maternal Assessment Level of Consciousness: Fully Conscious Headache: Denies Nausea/Vomiting: Denies RUQ Epigastric Pain: Denies Labor Evaluation Frequency: 0/hr Monitor Mode: External Datetime: 10/09/2016 12:00 Stage of : Antepartum Maternal Assessment Level of Consciousness: Fully Conscious Headache: Denies Nausea/Vomiting: Denies RUQ Epigastric Pain: Denies Labor Evaluation Frequency: 0/hr Monitor Mode: External Datetime: 10/09/2016 11:39 Stage of : Antepartum Datetime: 10/09/2016 11:38 Bedside Blood Glucose: 90 Pain Presence: None/Denies Datetime: 10/09/2016 11:00 Stage of : Antepartum Maternal Assessment Level of Consciousness: Fully Conscious Headache: Denies Nausea/Vomiting: Denies RUQ Epigastric Pain: Denies Labor Evaluation Frequency: 0/hr Monitor Mode: External Datetime: 10/09/2016 10:00 Stage of : Antepartum Maternal Assessment Level of Consciousness: Fully Conscious Headache: Denies Nausea/Vomiting: Denies RUQ Epigastric Pain: Denies Labor Evaluation Frequency: 0/hr Monitor Mode: External Datetime: 10/09/2016 09:12 Stage of : Antepartum Maternal Assessment Level of Consciousness: Fully Conscious Headache: Denies Nausea/Vomiting: Denies RUQ Epigastric Pain: Denies Labor Evaluation Frequency: 0/hr Monitor Mode: External Resting Tone Pottery Addition: Relaxed Pain Presence: None/Denies Datetime: 10/09/2016 07:29 Stage of : Antepartum Assessment Type: Ongoing Assessment Maternal Assessment Level of Consciousness: Fully Conscious DTR's/Clonus: DTRs 2+; No Clonus Headache: Denies Respiratory Effort: Unlabored Breath Sounds, Left: Clear and Equal Breath Sounds, Right: Clear and Equal Nausea/Vomiting: Denies RUQ Epigastric Pain: Denies Lower Extremities Edema: Bilateral Lower Extremities Degree: 1+ Upper Extremities Edema: None Degree: None Facial Edema: None Fall Risk Assessment History of Falling: (0) No Secondary Diagnosis: (0) No Ambulatory Aid: (0) Bedrest/Nurse Assist IV Therapy: (0) No Gait: (0) Normal/Bedrest/Immobile Mental Status: (0) Oriented to Own Ability Fall Score: 0 Fall Risk Score Definition: No Risk: No action required Labor Evaluation Frequency: 0/hr Monitor Mode: External Resting Tone Pottery Addition: Relaxed Datetime: 10/09/2016 07:27 Resting Tone Pottery Addition: Relaxed Datetime: 10/09/2016 07:24 Stage of : Antepartum Bedside Blood Glucose: 88 Datetime: 10/09/2016 06:59 Maternal Assessment Level of Consciousness: Fully Conscious Headache: Frontal Blurred Vision: No Respiratory Effort: Unlabored; Regular Rhythm; Equal Expansion Nausea/Vomiting: Denies RUQ Epigastric Pain: Denies Labor Evaluation Frequency: 0 Monitor Mode: External Duration (sec)2399: 0 Resting Tone Pottery Addition: Relaxed Pain Assessment Pain Scale: 2 Pain Presence: Constant Pain Type: Ache Pain Location: Head Pain Goal: 0 Pain Relief Measures: Comfort Measures Datetime: 10/09/2016 06:00 Respiratory Effort: Unlabored; Regular Rhythm; Equal Expansion Labor Evaluation Frequency: 0 Monitor Mode: External Duration (sec)2399: 0 Resting Tone Pottery Addition: Relaxed Pain Assessment Pain Scale: 0 Pain Presence: None/Denies Pain Type: N/A Pain Goal: 0 Datetime: 10/09/2016 05:00 Labor Evaluation Frequency: 0 Monitor Mode: External Duration (sec)2399: 0 Resting Tone Pottery Addition: Relaxed Pain Assessment Pain Scale: 0 Pain Presence: None/Denies Pain Type: N/A Pain Goal: 0 Datetime: 10/09/2016 04:00 Labor Evaluation Frequency: 0 Monitor Mode: External Duration (sec)2399: 0 Resting Tone Pottery Addition: Relaxed Pain Assessment Pain Scale: 0 Pain Presence: None/Denies Pain Type: N/A Pain Goal: 0 Datetime: 10/09/2016 03:51 Maternal Assessment Level of Consciousness: Fully Conscious DTR's/Clonus: DTRs 2+; No Clonus Headache: Denies Respiratory Effort: Unlabored; Regular Rhythm; Equal Expansion Nausea/Vomiting: Denies RUQ Epigastric Pain: Denies Pain Assessment Pain Scale: 0 Pain Presence: None/Denies Pain Type: N/A Pain Goal: 0 Datetime: 10/09/2016 03:00 Labor Evaluation Frequency: 0 Monitor Mode: External Duration (sec)2399: 0 Resting Tone Pottery Addition: Relaxed Pain Assessment Pain Scale: 0 Pain Presence: None/Denies Pain Type: N/A Pain Goal: 0 Datetime: 10/09/2016 02:00 Respiratory Effort: Unlabored; Regular Rhythm; Equal Expansion Labor Evaluation Frequency: 0 Monitor Mode: External Duration (sec)2399: 0 Resting Tone Pottery Addition: Relaxed Pain Assessment Pain Scale: 0 Pain Presence: None/Denies Pain Type: N/A Pain Goal: 0 Datetime: 10/09/2016 01:00 Labor Evaluation Frequency: 0 Monitor Mode: External Duration (sec)2399: 0 Resting Tone Pottery Addition: Relaxed Pain Assessment Pain Scale: 0 Pain Presence: None/Denies Pain Type: N/A Pain Goal: 0 Datetime: 10/09/2016 00:44 Heart Rate FHR Baseline Rate: 145 Monitor Mode: Doppler Comments: NST PERFORMED USING DOPPLER. AUDIBLE ACCELS NOTED. Pain Assessment Pain Scale: 0 Pain Presence: None/Denies Pain Type: N/A Pain Goal: 0 Datetime: 10/09/2016 00:00 Labor Evaluation Frequency: 0 Monitor Mode: External Duration (sec)2399: 0 Resting Tone Pottery Addition: Relaxed Datetime: 10/08/2016 23:00 Labor Evaluation Frequency: 0 Monitor Mode: External Duration (sec)2399: 0 Resting Tone Pottery Addition: Relaxed Datetime: 10/08/2016 22:34 Bedside Blood Glucose: 121 Pain Assessment Pain Scale: 0 Pain Presence: None/Denies Pain Type: N/A Pain Goal: 0 Datetime: 10/08/2016 22:00 Labor Evaluation Frequency: 0 Monitor Mode: External Duration (sec)2399: 0 Resting Tone Pottery Addition: Relaxed Datetime: 10/08/2016 21:00 Labor Evaluation Frequency: 0 Monitor Mode: External Duration (sec)2399: 0 Resting Tone Pottery Addition: Relaxed Datetime: 10/08/2016 19:54 Assessment Type: Admission Assessment Maternal Assessment Level of Consciousness: Fully Conscious DTR's/Clonus: DTRs 2+; No Clonus Headache: Denies Blurred Vision: Unable to assess (Annotations: PT STATES THAT SHE EXPERIENCES CHANGES IN VISION OC CASIONALLY DURING THE ) Respiratory Effort: Unlabored Breath Sounds, Left: Clear and Equal Breath Sounds, Right: Clear and Equal Nausea/Vomiting: Denies RUQ Epigastric Pain: Denies Lower Extremities Edema: Bilateral Lower Extremities Degree: 1+ Upper Extremities Edema: None Degree: None Facial Edema: None Fall Risk Assessment History of Falling: (0) No Secondary Diagnosis: (0) No Ambulatory Aid: (0) Bedrest/Nurse Assist IV Therapy: (0) No Gait: (0) Normal/Bedrest/Immobile Mental Status: (0) Oriented to Own Ability Fall Score: 0 Fall Risk Score Definition: No Risk: No action required Datetime: 10/08/2016 17:34 Vaginal Exam Dilatation (cms): 0.0 Effacement (%): 50 Station: -2 Exam By: Ronda COPE Datetime: 10/08/2016 16:57 Labor Evaluation Frequency: 0 Pattern: Normal: <= 5 Contractions in 10 Minutes Resting Tone Pottery Addition: Relaxed Heart Rate FHR Baseline Rate: 155 Monitor Mode: External US Variability: Minimal - Undetectable to <=5 bpm Accelerations: 10X10 Decelerations: None Category: Category II Datetime: 10/08/2016 16:08 Assessment Type: Admission Assessment Maternal Assessment Level of Consciousness: Fully Conscious DTR's/Clonus: DTRs 2+; No Clonus Headache: Denies Blurred Vision: No Respiratory Effort: Unlabored; Regular Rhythm; Equal Expansion Breath Sounds, Left: Clear and Equal Breath Sounds, Right: Clear and Equal Nausea/Vomiting: Denies RUQ Epigastric Pain: Denies Lower Extremities Edema: None Degree: None Upper Extremities Edema: None Degree: None Facial Edema: None Fall Risk Assessment History of Falling: (0) No Secondary Diagnosis: (0) No Ambulatory Aid: (0) Bedrest/Nurse Assist IV Therapy: (0) No Gait: (0) Normal/Bedrest/Immobile Mental Status: (0) Oriented to Own Ability Fall Score: 0 Fall Risk Score Definition: No Risk: No action required Datetime: 10/08/2016 16:03 Time of Arrival: 10/08/2016 20:08 EGA: 20.0 Arrived By: Ambulatory Arrived From: Other Unit in Hospital Datetime: 10/08/2016 16:02 Time of Arrival: 10/08/2016 15:18 Arrived By: Ambulatory Arrived From: Office Chief Complaint: GDM Movement: Present Contractions: Denies/Absent Rupture of Membranes: Denies Vaginal Bleeding: None Vaginal Discharge: Denies Recent Sexual Intercouse: Denies Abdominal Trauma: Not Applicable Patient Complaints: Other Initial Plan: NST
== END 2016-10-19 00:25 | disposition home or self-care (01) ==
LOC: OBT 22:15 → L-D 22:16 → OBT 10-19 00:25
PROVIDERS: ATTEND Obstetrics & Gynecology
DX: O26.892 Other specified pregnancy related conditions, second trimester (principal); R10.30 Lower abdominal pain, unspecified; K59.00 Constipation, unspecified; O24.410 Gestational diabetes mellitus in pregnancy, diet controlled; Z3A.21 21 weeks gestation of pregnancy
CPT/HCPCS: 76817; 81003; 82962; Z7500; G0463

== ENCOUNTER 2016-10-29 23:25 | Outpatient (CLI) | payer OTHER ==
[~2016-10-29] VITALS: Ht 154.9 cm; Wt 108.0 kg
[2016-10-29 23:39] VITALS: Ht 154.9 cm; Wt 108.0 kg
[2016-10-29 23:40] VITALS: BP 115/56; PULSE 95; RESP 18
--- NOTE | 2016-10-29 23:46 | PN ---
Date/Time of Note Date/Time of Note DATE: 10/29/16 TIME: 23:35 OB Subjective Subjective Subjective 26 yo P2 @ 23 wks c/o decreased FM; she is a gestational diabetic no bleeding or pain OB Objective Objective Objective VS: nml B (patient ate at 8pm) Abdomen- gravid, n/t Doppler: + FH; 130 Abdomen: WNL OB Assessment/Plan Other Assessment: 26 yo P2 @ 23 wks, w gestational DM and c/o decreased FM - pos FH Other plan: sono to evaluate viability, fluid if nml, d/c home patient has appt in diabetic clinic in the morning TAYLOR SOFIA MD Oct 29, 2016 23:46
--- NOTE | 2016-10-30 01:06 | RADRPT ---
PROCEDURE: Biophysical profile. CLINICAL INDICATION: Pelvic pain. TECHNIQUE: Multiple sonographic images of the pelvis were obtained with transabdominal technique. COMPARISON: 10/18/2016. FINDINGS: There is a single living intrauterine gestation with the fetus in a breech position. The placenta i s posterior in location, grade 1. heart tones of 154 beats per minute are identified. There i s normal amniotic fluid volume with an VALENTIN of 13.7 cm. breathing movements = 2 Gross body movements = 2 tone = 2 Qualitative AFV = 2 IMPRESSION: Biophysical profile 8 out of 8. .Ace Madison MD, Date Time Electronically viewed and signed by .Ace Madison MD, on 10/30/2016 01:06 .T/
--- NOTE | 2016-10-30 02:06 | TRIAGE ---
OB Triage Datetime Report Generated by CPN: 10/30/2016 02:06 Datetime: 10/30/2016 23:25 Maternal Assessment Level of Consciousness: Fully Conscious DTR's/Clonus: DTRs 2+; No Clonus Headache: Denies Blurred Vision: No Respiratory Effort: Unlabored; Regular Rhythm; Equal Expansion Breath Sounds, Left: Clear and Equal Breath Sounds, Right: Clear and Equal Nausea/Vomiting: Denies RUQ Epigastric Pain: Denies Facial Edema: None Temperature Route: Axillary Fall Risk Assessment History of Falling: (0) No Secondary Diagnosis: (0) No Ambulatory Aid: (0) Bedrest/Nurse Assist IV Therapy: (0) No Gait: (0) Normal/Bedrest/Immobile Mental Status: (0) Oriented to Own Ability Fall Score: 0 Fall Risk Score Definition: No Risk: No action required Datetime: 10/30/2016 01:55 Stage of : OB Triage Datetime: 10/30/2016 01:30 Stage of : OB Triage Datetime: 10/30/2016 01:06 Stage of : OB Triage Datetime: 10/30/2016 01:02 Stage of : OB Triage Heart Rate FHR Baseline Rate: 156 Monitor Mode: Doppler Datetime: 10/30/2016 00:30 Stage of : OB Triage Labor Evaluation Frequency: NONE Monitor Mode: Palpation Heart Rate FHR Baseline Rate: 142 Monitor Mode: Doppler Pain Assessment Pain Presence: None/Denies Datetime: 10/30/2016 00:03 Stage of : OB Triage Datetime: 10/29/2016 23:58 Stage of : OB Triage Assessment Type: Triage Datetime: 10/29/2016 23:51 Assessment Type: Triage Maternal Assessment Level of Consciousness: Fully Conscious DTR's/Clonus: DTRs 2+; No Clonus Headache: Denies Blurred Vision: No Respiratory Effort: Unlabored; Regular Rhythm; Equal Expansion Breath Sounds, Left: Clear and Equal Breath Sounds, Right: Clear and Equal Nausea/Vomiting: Denies RUQ Epigastric Pain: Denies Lower Extremities Edema: Bilateral Lower Extremities Degree: Pitting Upper Extremities Edema: None Facial Edema: None Fall Risk Assessment History of Falling: (0) No Secondary Diagnosis: (0) No Ambulatory Aid: (0) Bedrest/Nurse Assist IV Therapy: (0) No Gait: (0) Normal/Bedrest/Immobile Mental Status: (0) Oriented to Own Ability Fall Score: 0 Fall Risk Score Definition: No Risk: No action required Datetime: 10/29/2016 23:35 Stage of : OB Triage Maternal Assessment Level of Consciousness: Fully Conscious DTR's/Clonus: DTRs 2+; No Clonus Headache: Denies Blurred Vision: No Respiratory Effort: Unlabored; Regular Rhythm; Equal Expansion Breath Sounds, Left: Clear and Equal Breath Sounds, Right: Clear and Equal Nausea/Vomiting: Denies RUQ Epigastric Pain: Denies Lower Extremities Edema: None Upper Extremities Edema: None Facial Edema: None Temperature Route: Axillary Fall Risk Assessment History of Falling: (0) No Secondary Diagnosis: (0) No Ambulatory Aid: (0) Bedrest/Nurse Assist IV Therapy: (0) No Gait: (0) Normal/Bedrest/Immobile Mental Status: (0) Oriented to Own Ability Fall Score: 0 Fall Risk Score Definition: No Risk: No action required Monitor Mode: Doppler Pain Assessment Pain Presence: None/Denies Datetime: 10/29/2016 23:20 Time of Arrival: 10/29/2016 23:20 EGA: 23.1 Arrived By: Ambulatory Arrived From: Home Chief Complaint: PT C/O DECREASED MOVEMENT Movement: Decreased Contractions: Denies/Absent Vaginal Bleeding: None Patient Complaints: None Initial Plan: INITIAL ASSESSMENT, TOCO AND EFM APPLIED, BS CHECKED. Datetime: 10/19/2016 22:45 Fall Score: 0 Fall Risk Score Definition: No Risk: No action required Datetime: 10/18/2016 22:25 EGA: 21.3 Datetime: 10/09/2016 07:29 Fall Score: 0 Fall Risk Score Definition: No Risk: No action required Datetime: 10/08/2016 19:54 Fall Score: 0 Fall Risk Score Definition: No Risk: No action required Datetime: 10/08/2016 16:08 Fall Score: 0 Fall Risk Score Definition: No Risk: No action required Datetime: 10/08/2016 16:03 EGA: 20.0
== END 2016-10-30 01:50 | disposition home or self-care (01) ==
LOC: OBT 23:25 → L-D 23:25 → OBT 10-30 01:50
PROVIDERS: ATTEND Obstetrics & Gynecology
DX: O36.8120 Decreased fetal movements, second trimester, not applicable or unspecified (principal); O24.419 Gestational diabetes mellitus in pregnancy, unspecified control; Z3A.23 23 weeks gestation of pregnancy
CPT/HCPCS: 76818; 82962; Z7500; G0463

== ENCOUNTER 2016-11-09 16:47 | Inpatient (IN) | payer OTHER ==
[~2016-11-09] VITALS: Ht 154.9 cm; Wt 106.3 kg
[2016-11-09] MEDS ORDERED: TERBUTALINE 1 MG/ML INJ SC STA (17:57)
[2016-11-09 18:00] VITALS: Ht 154.9 cm; Wt 106.3 kg
[2016-11-09 18:01] VITALS: BP 113/71; PULSE 114; RESP 18
[2016-11-09 18:46] LABS: ADD UMIC YES; URINE BILIRUBIN (Dip) NEGATIVE (NEGATIVE); URINE BLOOD (Dip) NEGATIVE (NEGATIVE); URINE COLOR LT. YELLOW (YELLOW); URINE GLUCOSE (Dip) NEGATIVE (NEGATIVE); URINE KETONES (Dip) TRACE (NEGATIVE); URINE LEUKOCYTE ESTERASE (Dip) NEGATIVE (NEGATIVE); URINE NITRITE (Dip) NEGATIVE (NEGATIVE); URINE TOTAL PROTEIN (Dip) NEGATIVE (NEGATIVE); URINE UROBILINOGEN (Dip) 0.2 E.U./dL (0.1-1.0)
--- NOTE | 2016-11-09 19:02 | RADRPT ---
PROCEDURE: US OB biophysical profile. Ultrasound cervix CLINICAL INDICATION: decreased movements, hypertension TECHNIQUE: Multiple sonographic images of the pelvis were obtained. The images were reviewed on a PACS workstation. In addition, transvaginal images of the cervix were obtained. COMPARISON: 10/30/2016 FINDINGS: The cervix is closed and measures 3.7 cm in length. There is a single viable intrauterine gestation. Cardiac activity is present with 154 beats per min havasupai. There is a breech presentation. The placenta is posterior. There is no evidence of placental abruption. There is a normal amount of amniotic fluid with a MVP = 6.2 cm. Biophysical profile: movement 2/2 tone 2/2. breathing 2/2 VALENTIN 2/2 Total 03/30 RPTAT: AA . IMPRESSION: Normal biophysical profile. Cervix is closed and measures 3.7 cm in length. . .Nas Juarez MD, MD Date Time Electronically viewed and signed by .Nas Juarez MD, MD on 11/09/2016 19:01 .S/
[2016-11-09 19:04] LABS: BACTERIA,URINE MODERATE; URINE RBCS NONE SEEN /HPF (0)
--- NOTE | 2016-11-09 19:22 | TRIAGE ---
OB Triage Datetime Report Generated by CPN: 11/09/2016 19:21 Datetime: 11/09/2016 17:06 Maternal Assessment Level of Consciousness: Fully Conscious DTR's/Clonus: DTRs 2+; No Clonus Headache: Denies Blurred Vision: No Nausea/Vomiting: Denies RUQ Epigastric Pain: Denies Facial Edema: None Labor Evaluation Frequency: 0 Monitor Mode: External Duration (sec)2399: 0 Resting Tone [place]: Relaxed Heart Rate FHR Baseline Rate: 150 Monitor Mode: External US FHR Baseline Changes: No Baseline Change Variability: Moderate 6-25 bpm Accelerations: 15X15 Decelerations: None Category: Category I Vaginal Exam Membrane Status: Intact Datetime: 11/09/2016 17:00 Time of Arrival: 11/09/2016 17:43 EGA: 24.4 Arrived By: Ambulatory Arrived From: Home Chief Complaint: CRAMPING Movement: Present Contractions: Denies/Absent Time Contractions Began: 11/09/2016 08:00 Rupture of Membranes: Denies Vaginal Bleeding: None Vaginal Discharge: Denies Recent Sexual Intercouse: Denies Abdominal Trauma: Not Applicable Patient Complaints: Cramping Time Provider Notified: 11/09/2016 17:15 Provider Notified: CARLOS Datetime: 10/30/2016 23:25 Fall Risk Assessment Fall Score: 0 Fall Risk Score Definition: No Risk: No action required Datetime: 10/29/2016 23:51 Fall Risk Assessment Fall Score: 0 Fall Risk Score Definition: No Risk: No action required Datetime: 10/29/2016 23:35 Fall Risk Assessment Fall Score: 0 Fall Risk Score Definition: No Risk: No action required Datetime: 10/29/2016 23:25 Stage of : OB Triage Datetime: 10/29/2016 23:20 EGA: 23.1 Datetime: 10/19/2016 22:45 Fall Risk Assessment Fall Score: 0 Fall Risk Score Definition: No Risk: No action required Datetime: 10/18/2016 22:25 EGA: 21.3 Datetime: 10/09/2016 07:29 Fall Risk Assessment Fall Score: 0 Fall Risk Score Definition: No Risk: No action required Datetime: 10/08/2016 19:54 Fall Risk Assessment Fall Score: 0 Fall Risk Score Definition: No Risk: No action required Datetime: 10/08/2016 16:08 Fall Risk Assessment Fall Score: 0 Fall Risk Score Definition: No Risk: No action required Datetime: 10/08/2016 16:03 EGA: 20.0
[2016-11-09 20:14] LABS: INR 0.98
[2016-11-09 20:20] LABS: PARTIAL THROMBOPLASTIN TIME 25.6 Sec (25.0-35.0)
[2016-11-09 20:22] LABS: ALANINE AMINOTRANSFERASE 16 IU/L (13-69); ASPARTATE AMINO TRANSFERASE 11 IU/L (15-46)
[2016-11-09] MEDS: LACTATED RINGER'S 1,000 ML IV SCH (21:49)
[2016-11-09] MEDS: ACETAMINOPHEN 325 MG TAB PO PRN (23:52)
[2016-11-10] MEDS: LACTATED RINGER'S 1,000 ML IV SCH ×3 (04:56→19:40)
[2016-11-10] MEDS ORDERED: INDOMETHACIN 25 MG PO ONE (13:30)
[2016-11-10] MEDS ORDERED: GLUCOSE GEL 15 GRAM TUBE PO PRN ×2 (14:00)
[2016-11-10] MEDS ORDERED: GLUCOSE GEL 15 GRAM TUBE BUCCAL PRN (14:00)
[2016-11-10] MEDS ORDERED: DEXTROSE 50% 50 ML SYRINGE IV PRN ×2 (14:00)
[2016-11-10] MEDS ORDERED: GLUCAGON 1 MG INJ IM PRN (14:00)
[2016-11-10 14:06] LABS: ADD SCAN DIFF NO
[2016-11-10 14:08] LABS: BASOPHILS % 0.2 % (0.0-2.0); EOSINOPHILS # 0.1 10^3/ul (0.0-0.5); EOSINOPHILS % 0.8 % (0.0-7.0); HEMATOCRIT 35.6 % (37.0-47.0); HEMOGLOBIN 11.5 g/dl (12.0-16.0); LYMPHOCYTES # 2.6 10^3/ul (0.8-2.9); MEAN CORPUSCULAR HEMOGLOBIN 27.9 pg (29.0-33.0); MEAN CORPUSCULAR HGB CONC 32.3 g/dl (32.0-37.0); MEAN CORPUSCULAR VOLUME 86.4 fl (82.0-101.0); MEAN PLATELET VOLUME 9.2 fl (7.4-10.4); MONOCYTE # 0.4 10^3/ul (0.3-0.9); MONOCYTES % 4.1 % (0.0-11.0); NEUTROPHIL # 7.2 10^3/ul (1.6-7.5); NEUTROPHILS % 69.3 % (39.0-77.0); PLATELET COUNT 254 10^3/UL (140-415); RED BLOOD COUNT 4.12 10^6/ul (4.20-5.40); RED CELL DISTRIBUTION WIDTH 13.6 % (11.5-14.5); WHITE BLOOD COUNT 10.3 10^3/ul (4.8-10.8)
[2016-11-10] MEDS: NIFEdipine 10 MG CAP PO SCH ×2 (14:22→19:03)
[2016-11-10 14:33] LABS: ALBUMIN 3.5 g/dl (3.3-4.9); ALBUMIN/GLOBULIN RATIO 1.02; POTASSIUM 3.8 mmol/L (3.5-5.1)
[2016-11-10 14:35] LABS: BILIRUBIN,INDIRECT 0.2 mg/dl (0-1.1); BILIRUBIN,TOTAL 0.2 mg/dl (0.2-1.3); CREATININE 0.54 mg/dl (0.44-1.00); TOTAL PROTEIN 6.9 g/dl (6.1-8.1)
[2016-11-10 14:36] LABS: CALCIUM 8.9 mg/dl (8.4-10.2)
--- NOTE | 2016-11-10 16:53 | HP ---
Date/Time of Note Date/Time of Note DATE: 11/10/16 TIME: 16:46 OB - History Hx of Present Free Text/Dictation admitted C/O back pain radiating to her fundus periodically Last Menstrual Period: Mar 27, 2016 Estimated Due Date: Feb 25, 2017 : 3 Para: 2 Care: Limited Care Ultrasounds: Normal mid trimester US Obstetrical Complications: Gestational Diabetes (class B ) Medical Complications: Other (DM and previous C/S X 2 ) Past Family/Social History * Past Medical, Surgical, Family and Obstetric Histories reviewed from chart. Blood Type: Unknown Rubella: immune RPR/VDRL: Negative GBS Status: Unknown HBsAG: Negative OB Admission Exam Vital Signs Vital Signs Vital Signs Date Time Temp Pulse Resp B/P Pulse Ox O2 Delivery O2 Flow Rate FiO2 11/09/16 18:01 98.3 114 18 113/71 100 Room Air Physical Exam HEENT: WNL Heart: Rhythm Normal Lungs: Clear, Equal Abdomen: WNL Extremities: Normal Reflexes: Normal Cervical Dilatation: None Effacement: 0% Station: -3 Heart Rate: 150's Accelerations: Accelerations Present Decelerations: Variable Decelerations Varibility: Moderate Contractions on Admission: None Last 72 hourBlood Glucose Bedside Glucose - 72 Hours Test 11/09/16 23:36 11/10/16 07:50 11/10/16 11:21 11/10/16 15:00 Bedside Glucose 131mg/dL (70-220) 107mg/dL (70-220) 88mg/dL (70-220) 106mg/dL (70-220) Last 72 hours Lab Results CBC & BMP 11/10/16 13:55 Liver Function Test 11/09/16 19:50 11/10/16 13:55 Alanine Aminotransferase (ALT/SGPT) 16 18 Aspartate Amino Transf (AST/SGOT) 11 L 14 L Albumin 3.5 Alkaline Phosphatase 96 Direct Bilirubin 0.00 Total Protein 6.9 OB Assessment/Plan Other Assessment: possible irregular uterine contractions variable deceleration of FHTs Class B DM Other plan: perinatology consult CHIQUITA LOMBARDI MD Nov 10, 2016 16:53
--- NOTE | 2016-11-10 16:55 | PN ---
Date/Time of Note Date/Time of Note DATE: 11/10/16 TIME: 16:53 OB Subjective Subjective Subjective still C/O periodic back pains OB Objective Objective Objective VSS P/E: NL Cx: closed On EFM no more decelerations seen OB Assessment/Plan Other Assessment: possible uterine contractions 24 weeks gestation Other plan: follow perinatology recommendations: start on Po Nifedipine and Metformin CHIQUITA LOMBARDI MD Nov 10, 2016 16:55
[2016-11-10] MEDS: AMOXICILLIN/CLAV 500 MG TAB PO SCH (17:15)
[2016-11-10] MEDS: metFORMIN (XR) 500 MG TAB PO SCH (17:15)
[2016-11-10] MEDS: ACETAMINOPHEN 325 MG TAB PO PRN (17:16)
[2016-11-11] MEDS: NIFEdipine 10 MG CAP PO SCH ×4 (00:16→18:08)
[2016-11-11] MEDS: AMOXICILLIN/CLAV 500 MG TAB PO SCH ×4 (00:16→22:07)
[2016-11-11] MEDS: LACTATED RINGER'S 1,000 ML IV SCH ×4 (02:03→21:59)
[2016-11-11] MEDS: metFORMIN (XR) 500 MG TAB PO SCH ×2 (08:18→17:26)
--- NOTE | 2016-11-11 18:08 | DS ---
Date/Time of Note Date/Time of Note home next day DATE: 11/11/16 TIME: 18:06 Obstetrical Discharge Record Final Diagnosis Final Diagnosis: not delivered Other Final Diagnosis contractions Complications Tocolytics: Other (Nifedipine ) Condition on Discharge Physical Assessment Voiding: Yes Bowel Movement: Yes Breast: Soft, non-tender, Filling Fundus: Other (gravid ) Abdomen and Incision: soft gravid Episiotomy: NA Calf Tenderness: No Patient Condition: Good CHIQUITA LOMBARDI MD Nov 11, 2016 18:08
--- NOTE | 2016-11-11 18:13 | DS ---
Date/Time of Note Date/Time of Note DATE: 11/11/16 TIME: 18:08 Discharge Summary Admission/Discharge Info Admit Date/Time Nov 09, 2016 at 17:50 Discharge Date/Time 11/11/2016 Final Diagnosis uterine contractions Patient Condition: Good Hx of Present Illness 26 y/o female at 24 + weeks admitted for ? u/Cs and was started on nifedipine with resolution of her signs and symptoms Hospital Course uncomplicated Home Meds Reported Medications Ferrous Sulfate (Iron) 325 Mg Capsule.er, 325 MG PO, CAP 10/08/16 Multivit/Min/Fol Ac/Iron/Pren* ( S*) 1 Tab Tab, 1 TAB PO DAILY, TAB 10/08/16 Follow-up Plan 2 days in clinic Pending Labs Laboratory Tests Test 11/10/16 19:58 11/11/16 07:39 11/11/16 11:41 11/11/16 14:17 Bedside Glucose 119mg/dL (70-220) 102mg/dL (70-220) 105mg/dL (70-220) 113mg/dL (70-220) CHIQUITA LOMBARDI MD Nov 11, 2016 18:13
--- NOTE | 2016-11-11 19:31 | PD.PPDC ---
ACUTE CARE PHYSICIAN Discharge Instruction Provider Information Physician Information 26 y/o female at 24 weeks was admitted with U/C and was started on Nifedipine Diagnosis Final Diagnosis: preter, contractions Condition Patient Condition: Good Diet Diet: Special Diet (2000 larisa ADA ) Follow-up Follow-up with Physician: 1, Week/Weeks (in clinic) Return to clinic for RESIDENT SURGEON Instructions: Worsening abdominal pain CHIQUITA LOMBARDI MD Nov 11, 2016 19:31
[2016-11-11] MEDS ORDERED: METF500T3 PO (19:32)
[2016-11-11] MEDS ORDERED: NIFEdipine PO (19:32)
--- NOTE | 2016-11-11 21:08 | QN ---
Documentation Comment patient with repetitive variable deceleration of FHTs will consult perinatologist CHIQUITA LOMBARDI MD Nov 11, 2016 21:08
[2016-11-11] MEDS ORDERED: BETAMET NA PHOS/AC(6 MG/ML) 5ML INJ IM SCH (22:30)
[2016-11-12] MEDS: NIFEdipine 10 MG CAP PO SCH ×4 (00:12→17:52)
[2016-11-12] MEDS: LACTATED RINGER'S 1,000 ML IV SCH ×3 (04:40→12:49)
[2016-11-12] MEDS: AMOXICILLIN/CLAV 500 MG TAB PO SCH ×3 (06:00→22:06)
[2016-11-12] MEDS: metFORMIN (XR) 500 MG TAB PO SCH ×2 (09:41→17:50)
[2016-11-12] MEDS ORDERED: BETAMET NA PHOS/AC(6 MG/ML) 5ML INJ IM SCH (22:30)
--- NOTE | 2016-11-13 01:15 | CONS ---
DATE OF ADMISSION: 11/09/2016 DATE OF CONSULTATION: 11/11/2016 HISTORY OF PRESENT ILLNESS: This patient was admitted on Wednesday with complaint of back pain. She w as at that time 25 weeks. Her cervix is closed with a good length, and the monitor does not show an y evidence of contractions. She is also diabetic, currently on no medication, diet controlled. Her sugar levels in the hospital have been high. I spoke to her in detail about her diet, and she i s unable to cook at home since there is no kitchen, so they mostly eat outside. I advised her about the importance of adherence to good diet, and also the nutrition consultation was done in house to help her manage her diabetes. The patient has some concerns, given at home she had some episodes of hypoglycemia, which most likely is the result of not having an after dinner snack and subsequently she drops her sugar at about 2:00 or 3:00 in the morning. So because she is not on any medication, is physiologic, again I advised her about the importance of dinner at around 7:00 and snack around 1 0:00 to 11:00, before she goes to bed. PAST MEDICAL HISTORY: Significant for , obesity, not complicated. PHYSICAL EXAMINATION: VITAL SIGNS: Blood pressure is normal. Physical examination deferred. heart tone is appropr iate for the gestational age. The baby has occasional variables, sometimes lasting for about a tahira te, and again, that is most likely the cord pressure. The patient is obese, and once she stays flat on her back, it can aggravate the cord pressure, so the change in movement would be necessary, but overall it is appropriate for gestational age. RECOMMENDATIONS: As she is ALLERGIC TO MOTRIN, Indocin is not going to be an option, and Procardia was decided to be started. Nutrition consult. I will not start her currently on medication, to see if the change in diet will be good, and then jean-claude perez can see us in the clinic within a week after discharge, and we will assess the diabetes at that ti me, after she has had some time to adjust to the diet. Once the patient is stable and her back pain has been improved, she should be able to go home with petra diallo at Perinatology within 1 week of discharge. ADDENDUM: I spoke to the nurse about the patient today and I also spoke to Dr. Kaplan today, as he had some concern about the heart tone status. Again, I reviewed the heart tone. Overal l, it is reassuring. She has some variables, but again, the reasons are stated above. Dr. Kaplan apparently decided to give the patient betamethasone, and as a result her glucose levels are elevated. The resultant elevation should generally last 5-7 days and after that resolve. If the patient stays for 1 more day, then we may consider starting her on some insulin. However, I would be cautious ab out that, as she might drop her sugar given back to her diet again is not consistent, and I would li ke to make sure that she does understand the change in diet that we discussed. Metformin would be a nother option. She can be started on metformin in the morning at bedtime. Dictated By: ENRIQUETA TOUSSAINT/KADEEM Conf#: [id number] DID#: [id number]
== END 2016-11-12 22:35 | disposition home or self-care (01) | DRG 778 ==
LOC: OBT 16:47 → L-D 16:47 → OBT 17:50 → OBG 19:50
PROVIDERS: ADMIT Obstetrics & Gynecology; ATTEND Obstetrics & Gynecology
DX: O60.02 Preterm labor without delivery, second trimester (principal); O24.419 Gestational diabetes mellitus in pregnancy, unspecified control; O99.212 Obesity complicating pregnancy, second trimester; Z3A.25 25 weeks gestation of pregnancy
CPT/HCPCS: 76817; 76818; 80053; 81001; 81003; 82962; 84439; 84443; 84450; 84460; 85025; 85610; 85730; 86850; 86900; 86901; 87086; G0463; J0702; J3105; J7120

== ENCOUNTER 2016-11-27 10:44 | Outpatient (CLI) | payer OTHER ==
[~2016-11-27] VITALS: Ht 157.5 cm; Wt 108.1 kg
[~2016-11-27 10:44] MED LIST changes: +METF500T3 PO; +NIFEdipine PO
[2016-11-27 11:01] VITALS: BP 108/60; PULSE 91; RESP 17; Ht 157.5 cm; Wt 108.1 kg
--- NOTE | 2016-11-27 12:33 | RADRPT ---
PROCEDURE: OB ultrasound for biophysical profile CLINICAL INDICATION: Decreased movement. TECHNIQUE: Multiple sonographic images of the pelvis were obtained. Transabdominal view of the gr avid uterus are available for review. The images were reviewed on a PACS workstation. COMPARISON: 11/09/2016. FINDINGS: breathing movement = 2/2 tone = 2/2 motion = 2/2 Quantitative amniotic fluid volume = 2/2 VALENTIN = 15.5 cm Single live intrauterine now in in transverse position with cardiac activity at 154 beats per minute. There is a posterior placenta without previa. The cervical length is 4.0 cm. IMPRESSION: 1. Single living intrauterine gestation in transverse position. 2. Biophysical profile = 8/8. 3. VALENTIN = 15.5 cm. RPTAT: [facility] Physician Alisson Date Time Electronically viewed and signed by Physician Alisson on 11/27/2016 12:33 /
--- NOTE | 2016-11-27 13:06 | QN ---
Documentation Comment 26 y/o female at 26-27 weeks gestation C/O decreased FM and ? U/C FHTs R No U/C seen BPP */* P continue Nifedipine , and continue diet and metformin CHIQUITA LOMBARDI MD Nov 27, 2016 13:06
--- NOTE | 2016-11-27 13:23 | TRIAGE ---
OB Triage Datetime Report Generated by CPN: 11/27/2016 13:22 Datetime: 11/27/2016 12:00 Labor Evaluation Frequency: 0 Monitor Mode: External Pattern: Normal: <= 5 Contractions in 10 Minutes Resting Tone [place]: Relaxed Heart Rate FHR Baseline Rate: 140 Monitor Mode: External US FHR Baseline Changes: No Baseline Change Variability: Moderate 6-25 bpm Accelerations: 15X15 Decelerations: Variable Category: Category II Comments: VARIABLES WITH SPONTNANEOUS RETURN TO BASELINE Pain Assessment Pain Scale: 4 Pain Presence: Intermittent Pain Type: Cramping Pain Location: Abdomen; Back Pain Relief Measures: Comfort Measures Datetime: 11/27/2016 11:04 Assessment Type: Triage Maternal Assessment Level of Consciousness: Fully Conscious DTR's/Clonus: DTRs 2+; No Clonus Headache: Denies Blurred Vision: No Respiratory Effort: Unlabored; Regular Rhythm Breath Sounds, Left: Clear and Equal Breath Sounds, Right: Clear and Equal Nausea/Vomiting: Denies RUQ Epigastric Pain: Denies Lower Extremities Edema: None Degree: None Upper Extremities Edema: None Degree: None Facial Edema: None Fall Risk Assessment History of Falling: (0) No Secondary Diagnosis: (0) No Ambulatory Aid: (0) Bedrest/Nurse Assist IV Therapy: (0) No Gait: (0) Normal/Bedrest/Immobile Mental Status: (0) Oriented to Own Ability Fall Score: 0 Fall Risk Score Definition: No Risk: No action required Datetime: 11/27/2016 11:03 Time of Arrival: 11/27/2016 10:40 EGA: 27.1 Arrived By: Ambulatory Arrived From: Home Chief Complaint: PT PRESENTS TO TRIAGE COMPLAINING OF LOWER ABDOMINAL PAIN AND BACK PAIN SINCE LAS T NIGHT AND DECREASED MOVEMENT Movement: Decreased Contractions: Denies/Absent Rupture of Membranes: Denies Vaginal Bleeding: None Vaginal Discharge: Present Recent Sexual Intercouse: Denies Abdominal Trauma: Not Applicable Patient Complaints: Cramping; Back Pain Time Provider Notified: 11/27/2016 11:25 Provider Notified: CARLOS Initial Plan: BPP/CVL Datetime: 11/27/2016 11:00 Pain Assessment Pain Scale: 4 Pain Presence: Intermittent Pain Type: Cramping Pain Location: Abdomen; Back Pain Relief Measures: Comfort Measures Datetime: 11/12/2016 20:42 Monitor Mode: Palpation Quality: NO CONTRACTIONS PALPATED Resting Tone [place]: Relaxed Monitor Mode: External US Datetime: 11/12/2016 19:44 Stage of : Antepartum Assessment Type: Ongoing Assessment Maternal Assessment Level of Consciousness: Fully Conscious DTR's/Clonus: DTRs 2+; No Clonus Headache: Denies Blurred Vision: No Respiratory Effort: Unlabored; Regular Rhythm; Equal Expansion Breath Sounds, Left: Clear and Equal Breath Sounds, Right: Clear and Equal Nausea/Vomiting: Denies RUQ Epigastric Pain: Denies Lower Extremities Edema: Bilateral Lower Extremities Degree: 2+ Upper Extremities Edema: None Degree: None Facial Edema: None Temperature Route: Oral Fall Risk Assessment History of Falling: (0) No Secondary Diagnosis: (0) No Ambulatory Aid: (0) Bedrest/Nurse Assist IV Therapy: (0) No Gait: (0) Normal/Bedrest/Immobile Mental Status: (0) Oriented to Own Ability Fall Score: 0 Fall Risk Score Definition: No Risk: No action required Comments: ACTIVE MOVEMENT PER PT Pain Assessment Pain Scale: 0 Pain Presence: None/Denies Pain Type: N/A Datetime: 11/12/2016 19:17 Labor Evaluation Frequency: 0 Monitor Mode: External Resting Tone [place]: Relaxed Heart Rate FHR Baseline Rate: 150 Monitor Mode: External US FHR Baseline Changes: No Baseline Change Variability: Moderate 6-25 bpm Accelerations: 10X10 (Annotations: SGA 25 WKS) Datetime: 11/12/2016 18:00 Labor Evaluation Frequency: 0 Monitor Mode: External Resting Tone [place]: Relaxed Heart Rate FHR Baseline Rate: 150 Monitor Mode: External US FHR Baseline Changes: No Baseline Change Variability: Moderate 6-25 bpm Accelerations: 10X10 Datetime: 11/12/2016 17:14 Labor Evaluation Frequency: 0 Monitor Mode: External Heart Rate FHR Baseline Rate: 150 Monitor Mode: External US FHR Baseline Changes: No Baseline Change Variability: Moderate 6-25 bpm Datetime: 11/12/2016 16:01 Labor Evaluation Frequency: 0 Monitor Mode: External Resting Tone [place]: Relaxed Monitor Mode: External US Datetime: 11/12/2016 16:00 Stage of : Antepartum Temperature Route: Oral Pain Presence: None/Denies Pain Goal: 0 Datetime: 11/12/2016 15:39 Labor Evaluation Frequency: 0 Monitor Mode: External Heart Rate FHR Baseline Rate: 150 Monitor Mode: External US FHR Baseline Changes: No Baseline Change Datetime: 11/12/2016 14:00 Labor Evaluation Frequency: 0 Monitor Mode: External Resting Tone [place]: Relaxed Heart Rate FHR Baseline Rate: 150 Monitor Mode: External US FHR Baseline Changes: No Baseline Change Datetime: 11/12/2016 13:30 Labor Evaluation Frequency: 0 Monitor Mode: External Resting Tone [place]: Relaxed Heart Rate FHR Baseline Rate: 150 Monitor Mode: External US FHR Baseline Changes: No Baseline Change Datetime: 11/12/2016 12:06 Labor Evaluation Frequency: 0 Monitor Mode: External Resting Tone [place]: Relaxed Heart Rate FHR Baseline Rate: 150 Monitor Mode: External US Datetime: 11/12/2016 11:41 Stage of : Antepartum Temperature Route: Oral Pain Presence: None/Denies Pain Goal: 0 Datetime: 11/12/2016 11:00 Labor Evaluation Frequency: 0 Monitor Mode: External Heart Rate FHR Baseline Rate: 150 Monitor Mode: External US FHR Baseline Changes: No Baseline Change Datetime: 11/12/2016 10:00 Labor Evaluation Frequency: 0 Monitor Mode: External Resting Tone [place]: Relaxed Heart Rate FHR Baseline Rate: 150 Monitor Mode: External US FHR Baseline Changes: No Baseline Change Datetime: 11/12/2016 09:00 Monitor Mode: External Heart Rate FHR Baseline Rate: 150 Monitor Mode: External US FHR Baseline Changes: No Baseline Change Datetime: 11/12/2016 08:00 Labor Evaluation Frequency: 0 Monitor Mode: External Resting Tone [place]: Relaxed Heart Rate FHR Baseline Rate: 150 Monitor Mode: External US FHR Baseline Changes: No Baseline Change Variability: Moderate 6-25 bpm Datetime: 11/12/2016 07:42 Stage of : Antepartum Datetime: 11/12/2016 07:00 Labor Evaluation Frequency: x1 Monitor Mode: External Duration (sec)2399: 40 Quality: Mild Resting Tone [place]: Relaxed Contraction Comments: pt without complaint of uc pain. Heart Rate FHR Baseline Rate: 140 Monitor Mode: External US FHR Baseline Changes: No Baseline Change Variability: Moderate 6-25 bpm Accelerations: 10X10 Decelerations: Variable Datetime: 11/12/2016 06:00 Labor Evaluation Frequency: x1 Monitor Mode: External Duration (sec)2399: 40 Quality: Mild Resting Tone [place]: Relaxed Contraction Comments: pt without complaint of uc pain. Heart Rate FHR Baseline Rate: 140 Monitor Mode: External US FHR Baseline Changes: No Baseline Change Variability: Moderate 6-25 bpm Accelerations: 15X15 Decelerations: None Datetime: 11/12/2016 05:57 Stage of : Antepartum Temperature Route: Oral Datetime: 11/12/2016 05:00 Labor Evaluation Frequency: none Monitor Mode: External Resting Tone [place]: Relaxed Contraction Comments: pt sleeping without apparent distress Heart Rate FHR Baseline Rate: 140 Monitor Mode: External US FHR Baseline Changes: No Baseline Change Variability: Moderate 6-25 bpm Accelerations: 10X10 Decelerations: None Datetime: 11/12/2016 04:00 Labor Evaluation Frequency: x1 Monitor Mode: External Duration (sec)2399: 60 Quality: Mild Resting Tone [place]: Relaxed Contraction Comments: pt without complaint of uc pain Heart Rate FHR Baseline Rate: 140 Monitor Mode: External US FHR Baseline Changes: No Baseline Change Variability: Moderate 6-25 bpm Accelerations: 10X10 Decelerations: None Datetime: 11/12/2016 03:00 Labor Evaluation Frequency: none Monitor Mode: External Resting Tone [place]: Relaxed Heart Rate FHR Baseline Rate: 150 Monitor Mode: External US FHR Baseline Changes: No Baseline Change Variability: Moderate 6-25 bpm Accelerations: 10X10 Decelerations: Variable Comments: variable decel to 80 bpm over 360 secs with return to BL 150 Datetime: 11/12/2016 02:00 Labor Evaluation Frequency: x1 Monitor Mode: External Duration (sec)2399: 50 Quality: Mild Resting Tone [place]: Relaxed Contraction Comments: pt without complaint of uc pain. Heart Rate FHR Baseline Rate: 145 Monitor Mode: External US FHR Baseline Changes: No Baseline Change Variability: Moderate 6-25 bpm Accelerations: 10X10 Decelerations: None Datetime: 11/12/2016 01:00 Labor Evaluation Frequency: none Monitor Mode: External Resting Tone [place]: Relaxed Contraction Comments: pt c/o lower abdominal and back pain Heart Rate FHR Baseline Rate: 150 Monitor Mode: External US FHR Baseline Changes: No Baseline Change Variability: Moderate 6-25 bpm Accelerations: 10X10 Decelerations: Variable Pain Assessment Pain Scale: 5 Pain Presence: Constant Pain Type: Ache Pain Location: Abdomen; Back Pain Relief Measures: Pain Medication Given Pain Assessment Comments: pt medicated with Tylenol 650mg po Datetime: 11/12/2016 00:08 Stage of : Antepartum Temperature Route: Oral Datetime: 11/12/2016 00:00 Labor Evaluation Frequency: x1 Monitor Mode: External Duration (sec)2399: 70 Quality: Mild Resting Tone [place]: Relaxed Contraction Comments: pt without complaint of uc painl Heart Rate FHR Baseline Rate: 145 Monitor Mode: External US FHR Baseline Changes: No Baseline Change Variability: Moderate 6-25 bpm Accelerations: 10X10 Decelerations: Variable Datetime: 11/11/2016 23:00 Labor Evaluation Frequency: none Monitor Mode: External Resting Tone [place]: Relaxed Heart Rate FHR Baseline Rate: 150 Monitor Mode: External US FHR Baseline Changes: No Baseline Change Variability: Moderate 6-25 bpm Accelerations: 15X15 Decelerations: Variable Pain Assessment Pain Scale: 0 Pain Presence: None/Denies Datetime: 11/11/2016 22:00 Labor Evaluation Frequency: x1 Monitor Mode: External Duration (sec)2399: 70 Quality: Mild Resting Tone [place]: Relaxed Contraction Comments: pt without complaint of uc pain. Heart Rate FHR Baseline Rate: 145 Monitor Mode: External US FHR Baseline Changes: No Baseline Change Variability: Moderate 6-25 bpm Accelerations: 10X10 Decelerations: Variable Datetime: 11/11/2016 21:04 Heart Rate FHR Baseline Rate: 150 FHR Baseline Changes: No Baseline Change Variability: Moderate 6-25 bpm Comments: EFM and toco on after shower. Datetime: 11/11/2016 20:00 Labor Evaluation Frequency: none Monitor Mode: External Resting Tone [place]: Relaxed Heart Rate FHR Baseline Rate: 150 Monitor Mode: External US FHR Baseline Changes: No Baseline Change Variability: Moderate 6-25 bpm Accelerations: 15X15 Decelerations: Variable Category: Category II Pain Assessment Pain Scale: 0 Pain Presence: None/Denies Datetime: 11/11/2016 19:53 Assessment Type: Ongoing Assessment Maternal Assessment Level of Consciousness: Fully Conscious DTR's/Clonus: DTRs 2+; No Clonus Headache: Denies Blurred Vision: No Respiratory Effort: Unlabored; Regular Rhythm; Equal Expansion Breath Sounds, Left: Clear and Equal Breath Sounds, Right: Clear and Equal Nausea/Vomiting: Denies RUQ Epigastric Pain: Denies Lower Extremities Edema: None Degree: None Upper Extremities Edema: None Degree: None Facial Edema: None Fall Risk Assessment History of Falling: (0) No Secondary Diagnosis: (0) No Ambulatory Aid: (0) Bedrest/Nurse Assist IV Therapy: (20) Yes Gait: (0) Normal/Bedrest/Immobile Mental Status: (0) Oriented to Own Ability Fall Score: 20 Fall Risk Score Definition: No Risk: No action required Datetime: 11/11/2016 19:52 Stage of : Antepartum Temperature Route: Oral Datetime: 11/11/2016 18:17 Stage of : Antepartum Maternal Assessment Level of Consciousness: Fully Conscious Labor Evaluation Frequency: NONE Monitor Mode: External Resting Tone [place]: Relaxed Heart Rate FHR Baseline Rate: 150 Monitor Mode: External US Variability: Moderate 6-25 bpm Accelerations: 10X10 Decelerations: None Comments: LOC AT TIMES PT REPORTS FREQUENT PERIODS OF FM _ DESPITE FREQUENT PERIODS OF REPOSITIONI NG Pain Assessment Pain Scale: 0 Pain Presence: None/Denies Pain Type: N/A Pain Goal: 0 Vaginal Exam Membrane Status: Intact Vaginal Bleeding: None Datetime: 11/11/2016 16:45 Monitor Mode: External US Datetime: 11/11/2016 16:40 Monitor Mode: External US Datetime: 11/11/2016 16:00 Stage of : Antepartum Maternal Assessment Level of Consciousness: Fully Conscious Labor Evaluation Frequency: NONE Monitor Mode: External Resting Tone [place]: Relaxed Heart Rate FHR Baseline Rate: 145 Monitor Mode: External US FHR Baseline Changes: No Baseline Change Variability: Moderate 6-25 bpm Accelerations: 10X10 Decelerations: None Comments: LOC WITH MOVEMENT Pain Assessment Pain Scale: 0 Pain Presence: None/Denies Pain Type: N/A Pain Goal: 0 Vaginal Exam Membrane Status: Intact Vaginal Bleeding: None Datetime: 11/11/2016 15:47 Monitor Mode: External US Comments: BABY MOVING "ALOT " PER PT Datetime: 11/11/2016 15:46 Monitor Mode: External US Datetime: 11/11/2016 14:21 Stage of : Antepartum Maternal Assessment Level of Consciousness: Fully Conscious Bedside Blood Glucose: 113 Labor Evaluation Frequency: NONE Monitor Mode: External Resting Tone [place]: Relaxed Heart Rate FHR Baseline Rate: 145 Monitor Mode: External US FHR Baseline Changes: No Baseline Change Variability: Moderate 6-25 bpm Accelerations: 10X10 Decelerations: Variable (Annotations: LUCHO 110 X 15 SEC) Comments: SPONT RETURN TO BASELINE Pain Assessment Pain Scale: 0 Pain Presence: None/Denies Pain Type: N/A Pain Goal: 0 Vaginal Exam Membrane Status: Intact Vaginal Bleeding: None Datetime: 11/11/2016 12:45 Monitor Mode: External US Datetime: 11/11/2016 12:02 Stage of : Antepartum Maternal Assessment Level of Consciousness: Fully Conscious Labor Evaluation Frequency: NONE Monitor Mode: External Resting Tone [place]: Relaxed Heart Rate FHR Baseline Rate: 150 Monitor Mode: External US FHR Baseline Changes: No Baseline Change Variability: Moderate 6-25 bpm Accelerations: 10X10 Decelerations: None Pain Assessment Pain Scale: 0 Pain Presence: None/Denies Pain Type: N/A Pain Goal: 0 Pain Assessment Comments: NO PAIN WITH VOIDING Vaginal Exam Membrane Status: Intact Vaginal Bleeding: None Datetime: 11/11/2016 11:40 Bedside Blood Glucose: 105 Labor Evaluation Frequency: NONE Monitor Mode: External Heart Rate FHR Baseline Rate: 150 Monitor Mode: External US Pain Presence: None/Denies Pain Type: N/A Vaginal Exam Membrane Status: Intact Datetime: 11/11/2016 10:06 Stage of : Antepartum Labor Evaluation Frequency: NONE Monitor Mode: External Resting Tone [place]: Relaxed Heart Rate FHR Baseline Rate: 145 Monitor Mode: External US FHR Baseline Changes: No Baseline Change Variability: Moderate 6-25 bpm Accelerations: 10X10 Decelerations: None Datetime: 11/11/2016 10:05 Monitor Mode: External US Datetime: 11/11/2016 09:30 Stage of : Antepartum Labor Evaluation Frequency: NONE Monitor Mode: External Resting Tone [place]: Relaxed Heart Rate FHR Baseline Rate: 145 Monitor Mode: External US FHR Baseline Changes: No Baseline Change Variability: Moderate 6-25 bpm Accelerations: 10X10 Decelerations: None Datetime: 11/11/2016 08:43 Monitor Mode: External US Datetime: 11/11/2016 08:38 Stage of : Antepartum Temperature Route: Oral Labor Evaluation Frequency: NONE Monitor Mode: External Resting Tone [place]: Relaxed Heart Rate FHR Baseline Rate: 140 Monitor Mode: External US FHR Baseline Changes: No Baseline Change Variability: Moderate 6-25 bpm Accelerations: 10X10 Decelerations: Variable (Annotations: lucho 80 x 15 sec with total decel lasting 100 sec) Comments: loc with frequent maternal position changes Datetime: 11/11/2016 07:40 Stage of : Antepartum Assessment Type: Ongoing Assessment Maternal Assessment Level of Consciousness: Fully Conscious Maternal Assessment Level of Consciousness: Fully Conscious DTR's/Clonus: DTRs 2+; No Clonus Headache: Denies Blurred Vision: No Respiratory Effort: Unlabored; Regular Rhythm; Equal Expansion Breath Sounds, Left: Clear and Equal Breath Sounds, Right: Clear and Equal Nausea/Vomiting: Denies RUQ Epigastric Pain: Denies Lower Extremities Edema: None Degree: None Upper Extremities Edema: None Degree: None Facial Edema: None Bedside Blood Glucose: 102 Fall Risk Assessment History of Falling: (0) No Secondary Diagnosis: (0) No Ambulatory Aid: (0) Bedrest/Nurse Assist IV Therapy: (20) Yes Gait: (0) Normal/Bedrest/Immobile Mental Status: (0) Oriented to Own Ability Fall Score: 20 Fall Risk Score Definition: No Risk: No action required Labor Evaluation Frequency: NONE Monitor Mode: External Resting Tone [place]: Relaxed Heart Rate FHR Baseline Rate: 140 Monitor Mode: External US FHR Baseline Changes: No Baseline Change Variability: Moderate 6-25 bpm Accelerations: 10X10 Decelerations: None Pain Assessment Pain Scale: 0 Pain Presence: None/Denies Pain Type: N/A Pain Goal: 0 Vaginal Exam Membrane Status: Intact Datetime: 11/11/2016 06:30 Labor Evaluation Frequency: NONE Monitor Mode: External Resting Tone [place]: Relaxed Heart Rate FHR Baseline Rate: 145 Monitor Mode: External US FHR Baseline Changes: No Baseline Change Variability: Moderate 6-25 bpm Accelerations: 10X10 Decelerations: None Category: Category I Datetime: 11/11/2016 05:30 Labor Evaluation Frequency: NONE Monitor Mode: External Resting Tone [place]: Relaxed Heart Rate FHR Baseline Rate: 145 Monitor Mode: External US FHR Baseline Changes: No Baseline Change Variability: Moderate 6-25 bpm Accelerations: 10X10 Decelerations: None Category: Category I Datetime: 11/11/2016 04:30 Labor Evaluation Frequency: NONE Monitor Mode: External Resting Tone [place]: Relaxed Heart Rate FHR Baseline Rate: 145 Monitor Mode: External US FHR Baseline Changes: No Baseline Change Variability: Moderate 6-25 bpm Accelerations: 10X10 Decelerations: None Category: Category I Datetime: 11/11/2016 03:30 Labor Evaluation Frequency: NONE Monitor Mode: External Resting Tone [place]: Relaxed Heart Rate FHR Baseline Rate: 145 Monitor Mode: External US FHR Baseline Changes: No Baseline Change Variability: Moderate 6-25 bpm Accelerations: 15X15 Decelerations: None Category: Category I Datetime: 11/11/2016 02:30 Labor Evaluation Frequency: NONE Monitor Mode: External Resting Tone [place]: Relaxed Heart Rate FHR Baseline Rate: 150 Monitor Mode: External US FHR Baseline Changes: No Baseline Change Variability: Moderate 6-25 bpm Accelerations: 15X15 Decelerations: None Category: Category I Pain Assessment Pain Scale: 0 Pain Presence: None/Denies Pain Type: N/A Datetime: 11/11/2016 01:30 Labor Evaluation Frequency: NONE Monitor Mode: External Resting Tone [place]: Relaxed Monitor Mode: External US Comments: UNABLE TO ASSSESS. LARGE BMI UNABLE TO KEEP FETUS ON HEART MONITOR. PT SLEEPING. Pain Assessment Pain Scale: 0 Pain Presence: None/Denies Pain Type: N/A Datetime: 11/11/2016 00:30 Labor Evaluation Frequency: NONE Monitor Mode: External Resting Tone [place]: Relaxed Heart Rate FHR Baseline Rate: 155 Monitor Mode: External US FHR Baseline Changes: No Baseline Change Variability: Moderate 6-25 bpm Accelerations: 15X15 Decelerations: None Category: Category I Pain Assessment Pain Scale: 0 Pain Presence: None/Denies Pain Type: N/A Datetime: 11/10/2016 23:30 Labor Evaluation Frequency: NONE Monitor Mode: External Resting Tone [place]: Relaxed Heart Rate FHR Baseline Rate: 150 Monitor Mode: External US FHR Baseline Changes: No Baseline Change Variability: Moderate 6-25 bpm Accelerations: 15X15 Decelerations: None Category: Category I Pain Assessment Pain Scale: 0 Pain Presence: None/Denies Pain Type: N/A Datetime: 11/10/2016 22:30 Labor Evaluation Frequency: NONE Monitor Mode: External Resting Tone [place]: Relaxed Heart Rate FHR Baseline Rate: 150 Monitor Mode: External US FHR Baseline Changes: No Baseline Change Variability: Moderate 6-25 bpm Accelerations: 15X15 Decelerations: None Category: Category I Pain Assessment Pain Scale: 0 Pain Presence: None/Denies Pain Type: N/A Datetime: 11/10/2016 21:30 Labor Evaluation Frequency: NONE Monitor Mode: External Resting Tone [place]: Relaxed Heart Rate FHR Baseline Rate: 150 FHR Baseline Changes: No Baseline Change Variability: Moderate 6-25 bpm Accelerations: 10X10 Decelerations: None Category: Category I Datetime: 11/10/2016 20:30 Labor Evaluation Frequency: NONE Monitor Mode: External Resting Tone [place]: Relaxed Heart Rate FHR Baseline Rate: 150 Monitor Mode: External US FHR Baseline Changes: No Baseline Change Variability: Moderate 6-25 bpm Accelerations: 15X15 Decelerations: None Category: Category I Pain Assessment Pain Scale: 0 Pain Presence: None/Denies Pain Type: N/A Datetime: 11/10/2016 20:21 Assessment Type: Ongoing Assessment Maternal Assessment Level of Consciousness: Fully Conscious DTR's/Clonus: DTRs 2+; No Clonus Headache: Denies Blurred Vision: No Respiratory Effort: Unlabored; Regular Rhythm; Equal Expansion Breath Sounds, Left: Clear and Equal Breath Sounds, Right: Clear and Equal Nausea/Vomiting: Denies RUQ Epigastric Pain: Denies Lower Extremities Edema: None Degree: None Upper Extremities Edema: None Degree: None Facial Edema: None Fall Risk Assessment History of Falling: (0) No Secondary Diagnosis: (0) No Ambulatory Aid: (0) Bedrest/Nurse Assist IV Therapy: (20) Yes Gait: (0) Normal/Bedrest/Immobile Mental Status: (0) Oriented to Own Ability Fall Score: 20 Fall Risk Score Definition: No Risk: No action required Datetime: 11/10/2016 18:42 Labor Evaluation Frequency: 0 Monitor Mode: External Resting Tone [place]: Relaxed Heart Rate FHR Baseline Rate: 150 FHR Baseline Changes: No Baseline Change Variability: Moderate 6-25 bpm Accelerations: 15X15 Decelerations: None Category: Category I Datetime: 11/10/2016 18:16 Pain Assessment Pain Scale: 0 Pain Assessment Comments: pt states back pain relieved Datetime: 11/10/2016 17:18 Pain Assessment Pain Scale: 4 Pain Location: Back Pain Goal: 0 Datetime: 11/10/2016 14:53 Comments: very difficult to monitor baby, increased fm, pts obesity, gest age. Datetime: 11/10/2016 14:51 Contraction Comments: toco placed on lower abd Datetime: 11/10/2016 12:29 Labor Evaluation Frequency: 0 Monitor Mode: External Resting Tone [place]: Relaxed Heart Rate FHR Baseline Rate: 140 Monitor Mode: External US FHR Baseline Changes: No Baseline Change Variability: Moderate 6-25 bpm Accelerations: 10X10 Decelerations: None Category: Category I Datetime: 11/10/2016 12:18 Comments: very difficu;t to monitor baby, due to pts increased weight and movement and gest age. Datetime: 11/10/2016 08:48 Labor Evaluation Frequency: 0 Monitor Mode: External Resting Tone [place]: Relaxed Heart Rate FHR Baseline Rate: 140 FHR Baseline Changes: No Baseline Change Variability: Moderate 6-25 bpm Accelerations: 15X15 Decelerations: Variable Category: Category II Datetime: 11/10/2016 08:01 Labor Evaluation Frequency: 0 Monitor Mode: External Resting Tone [place]: Relaxed Heart Rate FHR Baseline Rate: 140 Monitor Mode: External US FHR Baseline Changes: No Baseline Change Variability: Moderate 6-25 bpm Accelerations: 15X15 Decelerations: None Category: Category I Datetime: 11/10/2016 08:00 Stage of : Antepartum Datetime: 11/10/2016 07:54 Pain Assessment Pain Scale: 0 Pain Location: Left Flank Pain Assessment Comments: intermittent Datetime: 11/10/2016 07:52 Assessment Type: Ongoing Assessment Maternal Assessment Level of Consciousness: Fully Conscious DTR's/Clonus: DTRs 2+; No Clonus Headache: Denies Blurred Vision: No Respiratory Effort: Unlabored; Regular Rhythm; Equal Expansion Breath Sounds, Left: Clear and Equal Breath Sounds, Right: Clear and Equal Nausea/Vomiting: Denies RUQ Epigastric Pain: Denies Facial Edema: None Fall Risk Assessment History of Falling: (0) No Secondary Diagnosis: (0) No Ambulatory Aid: (0) Bedrest/Nurse Assist Gait: (0) Normal/Bedrest/Immobile Mental Status: (0) Oriented to Own Ability Datetime: 11/10/2016 07:00 Labor Evaluation Frequency: N/A Monitor Mode: External Resting Tone [place]: Relaxed Contraction Comments: Uterine activity noted. Heart Rate FHR Baseline Rate: 145 Monitor Mode: External US FHR Baseline Changes: No Baseline Change Variability: Moderate 6-25 bpm Accelerations: 10X10 Decelerations: None Category: Category I Comments: Loss of FHR contact Datetime: 11/10/2016 06:00 Labor Evaluation Frequency: N/A Monitor Mode: External Resting Tone [place]: Relaxed Interventions: Side to Side Contraction Comments: Uterine activity noted Heart Rate FHR Baseline Rate: 145 Monitor Mode: External US FHR Baseline Changes: No Baseline Change Variability: Moderate 6-25 bpm Accelerations: 15X15 Decelerations: None Category: Category I Comments: Loss of FHR contact Datetime: 11/10/2016 05:00 Labor Evaluation Frequency: N/A Monitor Mode: External Resting Tone [place]: Relaxed Heart Rate FHR Baseline Rate: 145 Monitor Mode: External US FHR Baseline Changes: No Baseline Change Variability: Moderate 6-25 bpm Accelerations: 10X10 Decelerations: None Category: Category I Comments: Periods of loss of FHR contact Datetime: 11/10/2016 04:00 Labor Evaluation Frequency: N/A Monitor Mode: External Resting Tone [place]: Relaxed Interventions: Side to Side Heart Rate FHR Baseline Rate: 145 Monitor Mode: External US FHR Baseline Changes: Return to Previous Baseline Variability: Moderate 6-25 bpm Accelerations: 15X15 Decelerations: Variable Category: Category II Datetime: 11/10/2016 03:30 Interventions: Side to Side Decelerations: Variable Comments: Variable decelerations at @ 0326 (45 seconds and lucho 75) and 0329 (25 seconds and nadi r 80); periods of loss of contact and unknown previous FHR baseline. Uterine resuscitation intervent ions - repositioned pt left lateral position followed by right lateral position. Datetime: 11/10/2016 03:00 Labor Evaluation Frequency: N/A Monitor Mode: External Resting Tone [place]: Relaxed Heart Rate FHR Baseline Rate: 145 Monitor Mode: External US FHR Baseline Changes: No Baseline Change Variability: Moderate 6-25 bpm Accelerations: 10X10 Decelerations: None Category: Category I Comments: Adjusting US; difficult to find FHR on monitor d/t pt obesity. Datetime: 11/10/2016 02:34 Temperature Route: Oral Datetime: 11/10/2016 02:00 Labor Evaluation Frequency: N/A Monitor Mode: External Resting Tone [place]: Relaxed Heart Rate FHR Baseline Rate: 155 Monitor Mode: External US FHR Baseline Changes: No Baseline Change Variability: Moderate 6-25 bpm Accelerations: 15X15 Decelerations: None Category: Category I Comments: Periods of loss of FHR contact Datetime: 11/10/2016 01:08 Comments: Continually adjusting US for FHR. Difficulty detecting FHR d/t pt obesity and move ment. Datetime: 11/10/2016 01:00 Labor Evaluation Frequency: N/A Monitor Mode: External Resting Tone [place]: Relaxed Interventions: Side to Side Contraction Comments: PT reports that she does not feel UC pain in the abdomen or perineum. Pt sta kirstin she feels occasional back pain. Heart Rate FHR Baseline Rate: 150 Monitor Mode: External US FHR Baseline Changes: No Baseline Change Variability: Moderate 6-25 bpm Accelerations: 10X10 Decelerations: Variable Category: Category II Comments: See documentation at 0022. Periods of loss of FHR contact r/t pt positioning and obesity . Datetime: 11/10/2016 00:22 Interventions: Side to Side Decelerations: Variable Comments: Possible variable deceleration at 0021 lasting for 30 seconds with lucho at 90. Maternal pulse oximeter at 0022 records maternal HR at 94. Will continue to monitor. Datetime: 11/10/2016 00:00 Labor Evaluation Frequency: N/A Monitor Mode: External Resting Tone [place]: Relaxed Contraction Comments: Uterine activity noted; pt states that she feels occasional backpain and per ineal pain. Heart Rate FHR Baseline Rate: 150 Monitor Mode: External US FHR Baseline Changes: No Baseline Change Variability: Moderate 6-25 bpm Accelerations: 15X15 Decelerations: None Category: Category I Comments: Periods of loss of FHR contact d/t pt self-repositioning, movement, and pt obesity . Datetime: 11/09/2016 23:39 Bedside Blood Glucose: 131 Datetime: 11/09/2016 23:38 Temperature Route: Oral Datetime: 11/09/2016 23:13 Pain Assessment Pain Scale: 4 Pain Presence: Intermittent Pain Type: Ache Pain Location: Back Pain Goal: 5 Pain Relief Measures: Comfort Measures Pain Assessment Comments: Pt reports she feels a back ache that comes and goes. Pt offered tylenol medication for pain, pt refuses. Datetime: 11/09/2016 23:00 Labor Evaluation Frequency: x1 Monitor Mode: External Duration (sec)2399: 70 Quality: Mild Resting Tone [place]: Relaxed Contraction Comments: Uterine activity noted. Pt self-repositioning during this interval. Heart Rate FHR Baseline Rate: 145 Monitor Mode: External US FHR Baseline Changes: No Baseline Change Variability: Moderate 6-25 bpm Accelerations: 15X15 Decelerations: None Category: Category I Comments: Periods of loss of FHR contact d/t pt self repositioning. Difficult to keep continuous F HR d/t pt obesity. Datetime: 11/09/2016 22:37 Comments: Adjusting US. Difficult to maintain continuous FHR d/t pt self-respositioning and pt obe sity. Datetime: 11/09/2016 22:00 Labor Evaluation Frequency: N/A Monitor Mode: External Resting Tone [place]: Relaxed Contraction Comments: Uterine activity noted; no UCs visualized on monitor. Heart Rate FHR Baseline Rate: 155 Monitor Mode: External US FHR Baseline Changes: No Baseline Change Variability: Moderate 6-25 bpm Accelerations: 10X10 Decelerations: None Category: Category I Comments: Periods of loss of FHR contact d/t pt self-repositioning. Datetime: 11/09/2016 21:00 Labor Evaluation Frequency: N/A Monitor Mode: External Resting Tone [place]: Relaxed Heart Rate FHR Baseline Rate: 155 Monitor Mode: External US FHR Baseline Changes: No Baseline Change Variability: Moderate 6-25 bpm Accelerations: 10X10 Decelerations: None Category: Category I Comments: Pt showering during this interval. Datetime: 11/09/2016 20:22 Stage of : Antepartum Assessment Type: Admission Assessment Maternal Assessment Level of Consciousness: Fully Conscious DTR's/Clonus: DTRs 2+; No Clonus Headache: Denies Blurred Vision: No Respiratory Effort: Unlabored; Regular Rhythm; Equal Expansion Breath Sounds, Left: Clear and Equal Breath Sounds, Right: Clear and Equal Nausea/Vomiting: Denies RUQ Epigastric Pain: Denies Lower Extremities Edema: Bilateral Lower Extremities Degree: Trace Upper Extremities Edema: Bilateral Upper Extremities Degree: Trace Facial Edema: None Temperature Route: Oral Fall Risk Assessment History of Falling: (0) No Secondary Diagnosis: (0) No Ambulatory Aid: (0) Bedrest/Nurse Assist IV Therapy: (0) No (Annotations: Pt refusing IV start until after shower.) Gait: (0) Normal/Bedrest/Immobile Mental Status: (0) Oriented to Own Ability Fall Score: 0 Fall Risk Score Definition: No Risk: No action required Datetime: 11/09/2016 20:00 Labor Evaluation Frequency: N/A Monitor Mode: External Resting Tone [place]: Relaxed Heart Rate FHR Baseline Rate: 155 Monitor Mode: External US FHR Baseline Changes: No Baseline Change Variability: Moderate 6-25 bpm Accelerations: 15X15 Decelerations: None Category: Category I Datetime: 11/09/2016 19:47 Time of Arrival: 11/10/2016 19:47 EGA: 24.5 Arrived By: Ambulatory Arrived From: OB TRIAGE Datetime: 11/09/2016 17:00 EGA: 24.4 Datetime: 10/30/2016 23:25 Fall Score: 0 Fall Risk Score Definition: No Risk: No action required Datetime: 10/29/2016 23:51 Fall Score: 0 Fall Risk Score Definition: No Risk: No action required Datetime: 10/29/2016 23:35 Fall Score: 0 Fall Risk Score Definition: No Risk: No action required Datetime: 10/29/2016 23:20 EGA: 23.1 Datetime: 10/19/2016 22:45 Fall Score: 0 Fall Risk Score Definition: No Risk: No action required Datetime: 10/18/2016 22:25 EGA: 21.3 Datetime: 10/09/2016 07:29 Fall Score: 0 Fall Risk Score Definition: No Risk: No action required Datetime: 10/08/2016 19:54 Fall Score: 0 Fall Risk Score Definition: No Risk: No action required Datetime: 10/08/2016 16:08 Fall Score: 0 Fall Risk Score Definition: No Risk: No action required Datetime: 10/08/2016 16:03 EGA: 20.0
== END 2016-11-27 13:15 | disposition home or self-care (01) ==
LOC: OBT 10:44 → L-D 10:45 → OBT 13:15
PROVIDERS: ATTEND Obstetrics & Gynecology
DX: O36.8120 Decreased fetal movements, second trimester, not applicable or unspecified (principal); Z3A.27 27 weeks gestation of pregnancy
CPT/HCPCS: 76817; 76818; Z7500; G0463

== ENCOUNTER 2016-12-11 11:57 | Outpatient (CLI) | payer OTHER ==
[~2016-12-11] VITALS: Ht 154.9 cm; Wt 109.6 kg
[2016-12-11 12:14] VITALS: Ht 154.9 cm; Wt 109.6 kg
[2016-12-11 12:15] VITALS: BP 127/70; PULSE 120; RESP 16
[2016-12-11 13:35] LABS: ADD SCAN DIFF NO
[2016-12-11 13:36] LABS: BASOPHILS % 0.1 % (0.0-2.0); EOSINOPHILS % 0.3 % (0.0-7.0); HEMATOCRIT 36.1 % (37.0-47.0); HEMOGLOBIN 11.8 g/dl (12.0-16.0); LYMPHOCYTES # 1.5 10^3/ul (0.8-2.9); LYMPHOCYTES % 15.2 % (15.0-51.0); MEAN CORPUSCULAR HEMOGLOBIN 28.6 pg (29.0-33.0); MEAN CORPUSCULAR HGB CONC 32.7 g/dl (32.0-37.0); MEAN CORPUSCULAR VOLUME 87.4 fl (82.0-101.0); MEAN PLATELET VOLUME 9.1 fl (7.4-10.4); MONOCYTE # 0.5 10^3/ul (0.3-0.9); MONOCYTES % 4.9 % (0.0-11.0); NEUTROPHIL # 7.7 10^3/ul (1.6-7.5); PLATELET COUNT 260 10^3/UL (140-415); RED BLOOD COUNT 4.13 10^6/ul (4.20-5.40); RED CELL DISTRIBUTION WIDTH 13.3 % (11.5-14.5); WHITE BLOOD COUNT 9.7 10^3/ul (4.8-10.8)
[2016-12-11 13:45] LABS: ALBUMIN 3.2 g/dl (3.3-4.9)
[2016-12-11 13:46] LABS: POTASSIUM 3.5 mmol/L (3.5-5.1)
[2016-12-11 13:48] LABS: BILIRUBIN,INDIRECT 0.2 mg/dl (0-1.1); BILIRUBIN,TOTAL 0.2 mg/dl (0.2-1.3); CREATININE 0.51 mg/dl (0.44-1.00)
[2016-12-11 13:49] LABS: ALBUMIN/GLOBULIN RATIO 0.94; CALCIUM 8.9 mg/dl (8.4-10.2); TOTAL PROTEIN 6.6 g/dl (6.1-8.1)
[2016-12-11] MEDS ORDERED: NIFEdipine 10 MG CAP PO ONE (14:00)
--- NOTE | 2016-12-11 14:16 | CONS ---
Date/Time of Note Date/Time of Note DATE: 12/11/16 TIME: 14:12 Assessment/Plan Assessment/Plan Additional Assessment/Plan r/o ptl -labs, UA, CL ordered -f/u results Consultation Date/Type/Reason Admit Date/Time Hx of Present Illness at 29.4 weeks who presents with abdominal pain. Patient reports pain is on side of abdomen bilaterally, intermittent. Denies cramping or lower abdominal pain. Also reports diarrhea and N/V. Denies f/c. No sick contacts. No LOF, VB, dysuria. +FM. Getting PNC, c/b GDMA2 on metformin and contractions on procardia started 1 month ago. Past Medical History Medical History: no pertinent history Past Surgical History CS x2 Social History Smoking Status: Never smoker Drug Use: none Exam/Review of Systems Vital Signs Vitals Vital Signs Date Time Temp Pulse Resp B/P Pulse Ox O2 Delivery O2 Flow Rate FiO2 12/11/16 12:15 98.2 120 16 127/70 Room Air Exam Gen: NAD HEENT: NCAT CV: RRR Pulm: CTAB Abd: gravid, NT Back: No CVAT Ext: NT FHT: reassuring Rhine: no UCs Results Result Diagram: 12/11/16 1315 12/11/16 1315 Results 24 hrs Laboratory Tests Test 12/11/16 13:15 White Blood Count 9.7 Red Blood Count 4.13 L Hemoglobin 11.8 L Hematocrit 36.1 L Mean Corpuscular Volume 87.4 Mean Corpuscular Hemoglobin 28.6 L Mean Corpuscular Hemoglobin Concent 32.7 Red Cell Distribution Width 13.3 Platelet Count 260 Mean Platelet Volume 9.1 Neutrophils % 79.0 H Lymphocytes % 15.2 Monocytes % 4.9 Eosinophils % 0.3 Basophils % 0.1 Nucleated Red Blood Cells % 0.0 Neutrophils # 7.7 H Lymphocytes # 1.5 Monocytes # 0.5 Eosinophils # 0.0 Basophils # 0.0 Nucleated Red Blood Cells # 0.0 Sodium Level 136 Potassium Level 3.5 Chloride Level 102 Carbon Dioxide Level 26 Anion Gap 12 Blood Urea Nitrogen 6 L Creatinine 0.51 Glucose Level 116 Calcium Level 8.9 Total Bilirubin 0.2 Direct Bilirubin 0.00 Indirect Bilirubin 0.2 Aspartate Amino Transf (AST/SGOT) 10 L Alanine Aminotransferase (ALT/SGPT) 21 Alkaline Phosphatase 90 Total Protein 6.6 Albumin 3.2 L Globulin 3.40 H Albumin/Globulin Ratio 0.94 GEORGE ABDI Dec 11, 2016 14:15
--- NOTE | 2016-12-11 14:40 | RADRPT ---
PROCEDURE: Limited obstetric ultrasound CLINICAL INDICATION: Labor TECHNIQUE: Multiple transverse and longitudinal grayscale images of the pelvis were obtained yates sabdominally and endovaginally.. COMPARISON: same day FINDINGS: There is a single live intrauterine gestation in a vertex position with a heart rate of 143 bp m. The cervix is closed and measures 4.9 cm in length. The placenta is posterior and fundal in location. There is no evidence of a placenta previa or a carina cental abruption. RPTAT: AA IMPRESSION: The cervix is closed and measures 4.9 cm in length. Physician Jake Date Time Electronically viewed and signed by James Bui Physician on 12/11/2016 14:40 /
[2016-12-11 14:41] LABS: ADD UMIC YES; URINE BILIRUBIN (Dip) NEGATIVE (NEGATIVE); URINE BLOOD (Dip) NEGATIVE (NEGATIVE); URINE COLOR YELLOW (YELLOW); URINE GLUCOSE (Dip) NEGATIVE (NEGATIVE); URINE KETONES (Dip) NEGATIVE (NEGATIVE); URINE LEUKOCYTE ESTERASE (Dip) 1+ (NEGATIVE); URINE NITRITE (Dip) NEGATIVE (NEGATIVE); URINE TOTAL PROTEIN (Dip) NEGATIVE (NEGATIVE); URINE UROBILINOGEN (Dip) 0.2 E.U./dL (0.1-1.0)
[2016-12-11 15:04] LABS: URINE RBCS 0-2 /HPF (0)
[2016-12-11 15:05] LABS: BACTERIA,URINE MODERATE
--- NOTE | 2016-12-11 16:25 | TRIAGE ---
OB Triage Datetime Report Generated by CPN: 12/11/2016 16:25 Datetime: 12/11/2016 16:00 Labor Evaluation Frequency: 0 Monitor Mode: External Pattern: Normal: <= 5 Contractions in 10 Minutes Resting Tone [place]: Relaxed Heart Rate FHR Baseline Rate: 150 FHR Baseline Changes: No Baseline Change Variability: Moderate 6-25 bpm Accelerations: 15X15 Decelerations: Variable Datetime: 12/11/2016 15:00 Labor Evaluation Frequency: 0 Monitor Mode: External Pattern: Normal: <= 5 Contractions in 10 Minutes Resting Tone [place]: Relaxed Heart Rate FHR Baseline Rate: 145 FHR Baseline Changes: No Baseline Change Variability: Moderate 6-25 bpm Accelerations: 15X15 Decelerations: Variable Datetime: 12/11/2016 14:00 Labor Evaluation Frequency: 0 Monitor Mode: External Pattern: Normal: <= 5 Contractions in 10 Minutes Resting Tone [place]: Relaxed Heart Rate FHR Baseline Rate: 145 FHR Baseline Changes: No Baseline Change Variability: Moderate 6-25 bpm Accelerations: 15X15 Decelerations: None Datetime: 12/11/2016 13:01 Monitor Mode: External US Datetime: 12/11/2016 13:00 Labor Evaluation Frequency: 0 Monitor Mode: External Pattern: Normal: <= 5 Contractions in 10 Minutes Resting Tone [place]: Relaxed Heart Rate FHR Baseline Rate: 145 FHR Baseline Changes: No Baseline Change Variability: Moderate 6-25 bpm Accelerations: 15X15 Decelerations: Variable Comments: Vx2 Datetime: 12/11/2016 12:46 Stage of : OB Triage Datetime: 12/11/2016 12:24 Assessment Type: Triage Maternal Assessment Level of Consciousness: Fully Conscious DTR's/Clonus: DTRs 2+; No Clonus Headache: Denies Blurred Vision: No Respiratory Effort: Unlabored; Regular Rhythm Breath Sounds, Left: Clear and Equal Breath Sounds, Right: Clear and Equal Nausea/Vomiting: Denies RUQ Epigastric Pain: Denies Lower Extremities Edema: None Degree: None Upper Extremities Edema: None Degree: None Facial Edema: None Fall Risk Assessment History of Falling: (0) No Secondary Diagnosis: (0) No Ambulatory Aid: (0) Bedrest/Nurse Assist IV Therapy: (0) No Gait: (0) Normal/Bedrest/Immobile Mental Status: (0) Oriented to Own Ability Fall Score: 0 Fall Risk Score Definition: No Risk: No action required Datetime: 12/11/2016 12:19 Time of Arrival: 12/11/2016 12:00 EGA: 29.4 Arrived By: Ambulatory Arrived From: Emergency Dept Chief Complaint: pt. came to hospital c/o diarrehea since last night, have bm 5 times, also c/o le tf side abdominal pain, come and goes, q 3h, pain level 4/10 Movement: Present Patient Complaints: Other Time Provider Notified: 12/11/2016 12:46 Provider Notified: DR. GONZALEZ Initial Plan: EFM x2, CERVICAL LENGTH, CMP, CBC, HAVE DR. ABDI, LABORIST, EVALUATE PT. Datetime: 11/27/2016 11:04 Fall Score: 0 Fall Risk Score Definition: No Risk: No action required Datetime: 11/27/2016 11:03 EGA: 27.4 Datetime: 11/12/2016 19:44 Fall Score: 0 Fall Risk Score Definition: No Risk: No action required Datetime: 11/11/2016 19:53 Fall Score: 20 Fall Risk Score Definition: No Risk: No action required Datetime: 11/11/2016 07:40 Fall Score: 20 Fall Risk Score Definition: No Risk: No action required Datetime: 11/10/2016 20:21 Fall Score: 20 Fall Risk Score Definition: No Risk: No action required Datetime: 11/09/2016 20:22 Fall Score: 0 Fall Risk Score Definition: No Risk: No action required Datetime: 11/09/2016 19:47 EGA: 25.1 Datetime: 11/09/2016 17:00 EGA: 25.0 Datetime: 10/30/2016 23:25 Fall Score: 0 Fall Risk Score Definition: No Risk: No action required Datetime: 10/29/2016 23:51 Fall Score: 0 Fall Risk Score Definition: No Risk: No action required Datetime: 10/29/2016 23:35 Fall Score: 0 Fall Risk Score Definition: No Risk: No action required Datetime: 10/29/2016 23:20 EGA: 23.4 Datetime: 10/19/2016 22:45 Fall Score: 0 Fall Risk Score Definition: No Risk: No action required Datetime: 10/18/2016 22:25 EGA: 21.6 Datetime: 10/09/2016 07:29 Fall Score: 0 Fall Risk Score Definition: No Risk: No action required Datetime: 10/08/2016 19:54 Fall Score: 0 Fall Risk Score Definition: No Risk: No action required Datetime: 10/08/2016 16:08 Fall Score: 0 Fall Risk Score Definition: No Risk: No action required Datetime: 10/08/2016 16:03 EGA: 20.3
== END 2016-12-11 16:20 | disposition home or self-care (01) ==
LOC: OBT 11:57 → L-D 11:58 → OBT 16:20
PROVIDERS: ATTEND Obstetrics & Gynecology
DX: O26.893 Other specified pregnancy related conditions, third trimester (principal); O24.415 Gestational diabetes mellitus in pregnancy, controlled by oral hypoglycemic drugs; Z3A.29 29 weeks gestation of pregnancy; R10.9 Unspecified abdominal pain; O34.219 Maternal care for unspecified type scar from previous cesarean delivery
CPT/HCPCS: 76817; 80053; 81001; 85025; 87086; Z7500; Z7610; 81003; G0463

== ENCOUNTER 2016-12-16 15:58 | Outpatient (CLI) | payer OTHER ==
[~2016-12-16] VITALS: Ht 154.9 cm; Wt 112.0 kg
[~2016-12-16 15:58] MED LIST changes: +ABX FOR UTI; +ACET-141 PO; +ACET325T33 PO; +ALBU8.5H3 INH; +BENZ100C70 PO; +CLOT21CR4 VG; +DICY10CA60 PO; +FAMO-96 PO; +MAG-19 PO; +METO10TA92 PO; +MUPI22OI2 TOP; +NITR-58 PO; +NO MEDS; +OMEP20CA16 PO; +ONDA4TAB14 PO; +ONDA4TAB35 PO; +PREN1TAB49; +PREN1TAB49 PO; +PRO20 PO; +TRAM50TA2 PO
[2016-12-16 16:11] VITALS: Ht 154.9 cm; Wt 112.0 kg
[2016-12-16 16:20] VITALS: BP 111/58; PULSE 86; RESP 18
--- NOTE | 2016-12-16 17:09 | RADRPT ---
PROCEDURE: Right Upper Quadrant Ultrasound. CLINICAL INDICATION: Abdominal pain TECHNIQUE: Multiple real-time images were acquired of the patient's right upper quadrant abdomen a nd retroperitoneum utilizing a high resolution transducer. COMPARISON: None FINDINGS: The liver measures 17.9 cm, and demonstrates mildly increased echogenicity. The main portal vein is patent with proper directional flow. There is no intrahepatic biliary ductal dilatation. The extrahe patic common bile duct measures 5 mm. There is no cholelithiasis. The gallbladder is contracted which limits evaluation for wall thickeni ng. There is no pericholecystic fluid. The pancreas is not well visualized. The right kidney measures 10.1 cm and demonstrates normal echotexture. There is no right renal calcu pennie or hydronephrosis. The visualized abdominal aorta and IVC are grossly unremarkable. IMPRESSION: Hepatomegaly with mild fatty infiltration. Contracted gallbladder without cholelithiasis or acute cholecystitis. Normal CBD. RPTAT: EE Physician Jake Date Time Electronically viewed and signed by Physician Jake on 12/16/2016 17:09 /
--- NOTE | 2016-12-16 17:10 | RADRPT ---
PROCEDURE: Limited OB ultrasound for cervical length. CLINICAL INDICATION: . Abdominal pain. TECHNIQUE: Sonographic evaluation to assess the cervical length was performed. Transvaginal imagi ng of the gravid uterus was performed. COMPARISON: OB ultrasound to 12/11/2016 FINDINGS: The transvaginal cervical length equals approximately 4.8 cm. No other evaluation of the fetus was performed. IMPRESSION: 1. Cervical length equals approximately 4.8 cm by transvaginal examination. RPTAT: KK .Nasim Mathew MD, MD Date Time Electronically viewed and signed by .Nasim Mathew MD, MD on 12/16/2016 17:09 .B/
--- NOTE | 2016-12-16 17:41 | QN ---
Documentation Comment 26-year-old with IUP at 30 weeks and [address] with care with Dr. Parekh presented with complaint of left upper abdominal and flank pain and right lower abdominal pain intermittently for the past couple days. She also presented again with the same complaint a week ago. Patient denies any leaking of fluid, vaginal bleeding, decreased movement, fever or chills, dysuria, or any other complaints. Patient reports her pain worsen when she lays down flat and to the side and especially at nighttime when she lays down and improves when she walks or sitting. She reports the pain has been intermittent. She rates her pain 4-5 out of 10. Physical examination: General appearance, alert and oriented 4 patient does not appear to be any acute distress. Abdomen: Soft, gravid, nontender, no rebound tenderness, no guarding, no rigidity, no evidence of acute abdomen. No CVA tenderness NST: Category 1 Occasional rare contractions seen. Pelvic examination deferred Assessment: PROCEDURE: Right Upper Quadrant Ultrasound. CLINICAL INDICATION: Abdominal pain TECHNIQUE: Multiple real-time images were acquired of the patient's right upper quadrant abdomen and retroperitoneum utilizing a high resolution transducer. COMPARISON: None FINDINGS: The liver measures 17.9 cm, and demonstrates mildly increased echogenicity. The main portal vein is patent with proper directional flow. There is no intrahepatic biliary ductal dilatation. The extrahepatic common bile duct measures 5 mm. There is no cholelithiasis. The gallbladder is contracted which limits evaluation for wall thickening. There is no pericholecystic fluid. The pancreas is not well visualized. The right kidney measures 10.1 cm and demonstrates normal echotexture. There is no right renal calculus or hydronephrosis. The visualized abdominal aorta and IVC are grossly unremarkable. IMPRESSION: Hepatomegaly with mild fatty infiltration. Contracted gallbladder without cholelithiasis or acute cholecystitis. Normal CBD. PROCEDURE: Limited OB ultrasound for cervical length. CLINICAL INDICATION: . Abdominal pain. TECHNIQUE: Sonographic evaluation to assess the cervical length was performed. Transvaginal imaging of the gravid uterus was performed. COMPARISON: OB ultrasound to 12/11/2016 FINDINGS: The transvaginal cervical length equals approximately 4.8 cm. No other evaluation of the fetus was performed. IMPRESSION: 1. Cervical length equals approximately 4.8 cm by transvaginal examination. RPTAT: KK Assessment: IUP at 30 weeks and 2 days Left upper abdominal and left flank pain as well as right lower abdominal pain Symptoms related to musculoskeletal. No evidence of labor Abdominal ultrasound unremarkable NST: Category 1 Patient was reassured. Plan: Next DC home Tylenol 500 mg p.o. 4 times daily as needed pain with rest and warm compresses in case of pain labor precaution next Follow-up with her OB clinic in 1-2 days after discharge Return to triage as needed any other symptoms or worsening or change in her symptoms. Patient verbalized understanding. GREGG LEACH MD Dec 16, 2016 17:41
== END 2016-12-16 17:55 | disposition home or self-care (01) ==
LOC: OBT 15:58 → L-D 15:59 → OBT 17:55
PROVIDERS: ATTEND Obstetrics & Gynecology
DX: O26.893 Other specified pregnancy related conditions, third trimester (principal); R10.31 Right lower quadrant pain; R10.9 Unspecified abdominal pain; Z3A.30 30 weeks gestation of pregnancy
CPT/HCPCS: 76705; 76817; Z7500; G0463

== ENCOUNTER 2016-12-20 18:00 | Outpatient (CLI) | payer OTHER ==
[~2016-12-20] VITALS: Ht 154.9 cm; Wt 112.0 kg
[~2016-12-20 18:00] MED LIST changes: -ABX FOR UTI; -ACET-141 PO; -ACET325T33 PO; -ALBU8.5H3 INH; -BENZ100C70 PO; -CLOT21CR4 VG; -DICY10CA60 PO; -FAMO-96 PO; -MAG-19 PO; -METO10TA92 PO; -MUPI22OI2 TOP; -NITR-58 PO; -NO MEDS; -OMEP20CA16 PO; -ONDA4TAB14 PO; -ONDA4TAB35 PO; -PREN1TAB49; -PREN1TAB49 PO; -PRO20 PO; -TRAM50TA2 PO
[2016-12-20 18:32] VITALS: Ht 154.9 cm; Wt 112.0 kg
[2016-12-20 18:33] VITALS: BP 108/60; PULSE 93; RESP 20
--- NOTE | 2016-12-20 19:13 | RADRPT ---
PROCEDURE: OB ultrasound for biophysical profile CLINICAL INDICATION: Poor tone. Biophysical profile. . TECHNIQUE: Multiple sonographic images of the pelvis were obtained. Transabdominal view of the gr avid uterus are available for review. The images were reviewed on a PACS workstation. COMPARISON: OB ultrasound dated 12/16/2016 and 11/27/2016 FINDINGS: breathing movement = 2/2 tone = 2/2 motion = 2/2 VALENTIN = 2/2 VALENTIN = 13.5 cm, previously 15.5 cm. Single live intrauterine with cardiac activity. Cephalic presentation, posterior placenta. Grade 2 color Doppler flow of the placenta. IMPRESSION: 1. Single viable intrauterine gestation. 2. Biophysical profile = 8/8. 3. VALENTIN = 13.5 cm. RPTAT: PP .Sai Ramirez MD, Date Time Electronically viewed and signed by .Sai Ramirez MD, on 12/20/2016 19:13 .B/
--- NOTE | 2016-12-20 20:03 | HP ---
Date/Time of Note Date/Time of Note DATE: 12/20/16 TIME: 19:57 OB - History Hx of Present Free Text/Dictation IUP at 30 weeks who presents to L&D for back and abdominal pain when she walks. she denies UCs, vaginal bleeding or LOF per vagina. she reports good FM. she reports she does not have any pain when she is resting. Care: Good Care Ultrasounds: Normal mid trimester US Obstetrical Complications: Gestational Diabetes, Other (h/o c/s x 2) Medical Complications: None Past Family/Social History * Past Medical, Surgical, Family and Obstetric Histories reviewed from chart. OB Admission Exam Vital Signs Vital Signs Vital Signs Date Time Temp Pulse Resp B/P Pulse Ox O2 Delivery O2 Flow Rate FiO2 12/20/16 18:33 98.2 93 20 108/60 Room Air Physical Exam HEENT: WNL Heart: Rhythm Normal Lungs: Clear, Equal Abdomen: WNL Extremities: Normal Reflexes: Normal Last 72 hourBlood Glucose Bedside Glucose - 72 Hours Test 12/20/16 18:20 Bedside Glucose 134mg/dL (70-220) OB Assessment/Plan Reason for admission: other Other Assessment: back pain and abdominal pain only with ambulation. all symptoms resolves when she is resting. not in labor Other plan: Not in labor. December d/c home. stretching and maternity Yoga d/w pt. KHUSHI DIAZ MD Dec 20, 2016 20:03
--- NOTE | 2016-12-21 04:48 | TRIAGE ---
OB Triage Datetime Report Generated by CPN: 12/21/2016 04:47 Datetime: 12/20/2016 19:48 Stage of : OB Triage Labor Evaluation Frequency: 0 Monitor Mode: External Resting Tone [place]: Relaxed Heart Rate FHR Baseline Rate: 135 Monitor Mode: External US Variability: Moderate 6-25 bpm Accelerations: 15X15 Decelerations: None Category: Category I Datetime: 12/20/2016 19:47 Stage of : OB Triage Datetime: 12/20/2016 18:32 Bedside Blood Glucose: 134 Datetime: 12/20/2016 18:26 Time of Arrival: 12/20/2016 18:00 EGA: 30.6 Arrived By: Ambulatory Arrived From: Home Chief Complaint: ABD AND BACK PAIN SINCE 033 Movement: Present Contractions: NONE AT THIS TIME Rupture of Membranes: Denies Vaginal Bleeding: None Vaginal Discharge: Denies Recent Sexual Intercouse: Denies Abdominal Trauma: Not Applicable Patient Complaints: Back Pain Provider Notified: CARLOS Initial Plan: EFM,CALL DR GONZALEZ, NST, BPP, Maternal Assessment Level of Consciousness: Fully Conscious DTR's/Clonus: DTRs 2+; No Clonus Headache: Denies Blurred Vision: No Respiratory Effort: Unlabored; Regular Rhythm; Equal Expansion Breath Sounds, Left: Clear and Equal Breath Sounds, Right: Clear and Equal Nausea/Vomiting: Denies RUQ Epigastric Pain: Denies Facial Edema: None Temperature Route: Axillary Fall Risk Assessment History of Falling: (0) No Secondary Diagnosis: (0) No Ambulatory Aid: (0) Bedrest/Nurse Assist IV Therapy: (0) No Gait: (0) Normal/Bedrest/Immobile Mental Status: (0) Oriented to Own Ability Fall Score: 0 Fall Risk Score Definition: No Risk: No action required Datetime: 12/20/2016 18:19 Maternal Assessment Level of Consciousness: Fully Conscious DTR's/Clonus: DTRs 2+ Headache: Denies Blurred Vision: No Nausea/Vomiting: Denies RUQ Epigastric Pain: Denies Facial Edema: 1+ Labor Evaluation Frequency: NONE AT THIS TIME Pattern: Normal: <= 5 Contractions in 10 Minutes Monitor Mode: External US FHR Baseline Changes: No Baseline Change Variability: Moderate 6-25 bpm Accelerations: 15X15 Decelerations: None Category: Category I Pain Assessment Pain Scale: 4 Pain Presence: Intermittent Pain Type: Sharp Pain Location: Abdomen; Back Pain Goal: 3 Vaginal Exam Membrane Status: Intact Datetime: 12/16/2016 17:02 Monitor Mode: External Resting Tone [place]: Relaxed Heart Rate FHR Baseline Rate: 145 Monitor Mode: External US FHR Baseline Changes: No Baseline Change Variability: Moderate 6-25 bpm Accelerations: 15X15 Decelerations: None Category: Category I Datetime: 12/16/2016 16:19 Assessment Type: Triage Maternal Assessment Level of Consciousness: Fully Conscious DTR's/Clonus: DTRs 2+; No Clonus Headache: Denies Blurred Vision: No Respiratory Effort: Unlabored; Regular Rhythm; Equal Expansion Breath Sounds, Left: Clear and Equal Breath Sounds, Right: Clear and Equal Nausea/Vomiting: Denies RUQ Epigastric Pain: Denies Lower Extremities Edema: Bilateral Lower Extremities Degree: 1+ Upper Extremities Edema: Bilateral Upper Extremities Degree: Trace Facial Edema: None Fall Risk Assessment History of Falling: (0) No Secondary Diagnosis: (0) No Ambulatory Aid: (0) Bedrest/Nurse Assist IV Therapy: (0) No Gait: (0) Normal/Bedrest/Immobile Mental Status: (0) Oriented to Own Ability Fall Score: 0 Fall Risk Score Definition: No Risk: No action required Datetime: 12/16/2016 16:17 Pain Assessment Pain Scale: 5 Pain Presence: Intermittent Pain Type: Ache Pain Location: Abdomen Pain Goal: 0 Pain Relief Measures: Comfort Measures Datetime: 12/16/2016 16:12 Time of Arrival: 12/16/2016 16:00 EGA: 30.2 Arrived By: Ambulatory Arrived From: Home Chief Complaint: R and L abdominal pain Movement: Present Contractions: Occasional Rupture of Membranes: Denies Vaginal Bleeding: Normal Show Vaginal Discharge: Denies Recent Sexual Intercouse: Denies Abdominal Trauma: Not Applicable Patient Complaints: Other Time Provider Notified: 12/16/2016 16:33 Provider Notified: Carlos Initial Plan: NST, OB US for CL, US for gall bladder Datetime: 12/11/2016 12:24 Fall Score: 0 Fall Risk Score Definition: No Risk: No action required Datetime: 12/11/2016 12:19 EGA: 29.4 Datetime: 11/27/2016 11:04 Fall Score: 0 Fall Risk Score Definition: No Risk: No action required Datetime: 11/27/2016 11:03 EGA: 27.4 Datetime: 11/12/2016 19:44 Fall Score: 0 Fall Risk Score Definition: No Risk: No action required Datetime: 11/11/2016 19:53 Fall Score: 20 Fall Risk Score Definition: No Risk: No action required Datetime: 11/11/2016 07:40 Fall Score: 20 Fall Risk Score Definition: No Risk: No action required Datetime: 11/10/2016 20:21 Fall Score: 20 Fall Risk Score Definition: No Risk: No action required Datetime: 11/09/2016 20:22 Fall Score: 0 Fall Risk Score Definition: No Risk: No action required Datetime: 11/09/2016 19:47 EGA: 25.1 Datetime: 11/09/2016 17:00 EGA: 25.0 Datetime: 10/30/2016 23:25 Fall Score: 0 Fall Risk Score Definition: No Risk: No action required Datetime: 10/29/2016 23:51 Fall Score: 0 Fall Risk Score Definition: No Risk: No action required Datetime: 10/29/2016 23:35 Fall Score: 0 Fall Risk Score Definition: No Risk: No action required Datetime: 10/29/2016 23:20 EGA: 23.4 Datetime: 10/19/2016 22:45 Fall Score: 0 Fall Risk Score Definition: No Risk: No action required Datetime: 10/18/2016 22:25 EGA: 21.6 Datetime: 10/09/2016 07:29 Fall Score: 0 Fall Risk Score Definition: No Risk: No action required Datetime: 10/08/2016 19:54 Fall Score: 0 Fall Risk Score Definition: No Risk: No action required Datetime: 10/08/2016 16:08 Fall Score: 0 Fall Risk Score Definition: No Risk: No action required Datetime: 10/08/2016 16:03 EGA: 20.3
== END 2016-12-20 20:05 | disposition home or self-care (01) ==
LOC: OBT 18:00 → L-D 18:02 → OBT 20:05
PROVIDERS: ATTEND Obstetrics & Gynecology
DX: O26.893 Other specified pregnancy related conditions, third trimester (principal); M54.9 Dorsalgia, unspecified; R10.9 Unspecified abdominal pain; O24.419 Gestational diabetes mellitus in pregnancy, unspecified control; Z3A.30 30 weeks gestation of pregnancy
CPT/HCPCS: 76818; 82962; Z7500; G0463

== ENCOUNTER 2016-12-29 14:44 | Outpatient (CLI) | payer OTHER ==
[~2016-12-29] VITALS: Ht 154.9 cm; Wt 111.3 kg
[2016-12-29 14:48] VITALS: Ht 154.9 cm; Wt 111.3 kg
[2016-12-29 14:49] VITALS: BP 115/64; RESP 16
--- NOTE | 2016-12-29 16:05 | RADRPT ---
PROCEDURE: US OB biophysical profile. Ultrasound cervix CLINICAL INDICATION: decreased movements, abdominal pain TECHNIQUE: Multiple sonographic images of the pelvis were obtained. The images were reviewed on a PACS workstation. In addition transvaginal images of the cervix were obtained. COMPARISON: 12/20/2016 FINDINGS: There is a single viable intrauterine gestation. Cardiac activity is present with 156 beats per min [place]. There is a vertex presentation. The placenta is posterior. There is no evidence of placental abruption. There is a normal amount of amniotic fluid with an VALENTIN = 16.8 cm. The cervix is closed and measures 4.9 cm in length. Biophysical profile: movement 2/2 tone 2/2. breathing 2/2 VALENTIN 2/2 Total 03/30 RPTAT: AA . IMPRESSION: Normal biophysical profile. Cervix measures 4.9 cm in length. . .Nas Juarez MD, Date Time Electronically viewed and signed by .Nas Juarez MD, on 12/29/2016 16:05 .S/
--- NOTE | 2016-12-29 16:23 | QN ---
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
--- NOTE | 2016-12-29 16:40 | TRIAGE ---
OB Triage Datetime Report Generated by CPN: 12/29/2016 16:39 Datetime: 12/29/2016 14:56 Stage of : OB Triage Assessment Type: Triage Maternal Assessment Level of Consciousness: Fully Conscious DTR's/Clonus: DTRs 2+; No Clonus Headache: Denies Blurred Vision: No Respiratory Effort: Unlabored; Regular Rhythm; Equal Expansion Breath Sounds, Left: Clear and Equal Breath Sounds, Right: Clear and Equal Nausea/Vomiting: Denies RUQ Epigastric Pain: Denies Lower Extremities Edema: None Degree: None Upper Extremities Edema: None Degree: None Facial Edema: None Temperature Route: Oral Fall Risk Assessment History of Falling: (0) No Secondary Diagnosis: (0) No Ambulatory Aid: (0) Bedrest/Nurse Assist IV Therapy: (0) No Gait: (0) Normal/Bedrest/Immobile Mental Status: (0) Oriented to Own Ability Fall Score: 0 Fall Risk Score Definition: No Risk: No action required Labor Evaluation Monitor Mode: External Heart Rate FHR Baseline Rate: 150 Monitor Mode: External US Variability: Moderate 6-25 bpm Accelerations: 15X15 Decelerations: None Pain Assessment Pain Scale: 3 Pain Presence: Intermittent Pain Type: Cramping Pain Location: Abdomen Pain Goal: 0 Datetime: 12/29/2016 14:55 Time of Arrival: 12/29/2016 14:45 EGA: 32.1 Arrived By: Ambulatory Arrived From: Home Chief Complaint: ABD, PAIN, Movement: Decreased Contractions: Denies/Absent Rupture of Membranes: Unsure Vaginal Bleeding: None Vaginal Discharge: Present Recent Sexual Intercouse: Denies Abdominal Trauma: Not Applicable Patient Complaints: Other Time Provider Notified: 12/29/2016 15:33 Provider Notified: DR. GONZALEZ Initial Plan: EFMX2 Datetime: 12/20/2016 19:32 Stage of : OB Triage Datetime: 12/20/2016 18:26 EGA: 30.6 Fall Score: 0 Fall Risk Score Definition: No Risk: No action required Datetime: 12/16/2016 16:19 Fall Score: 0 Fall Risk Score Definition: No Risk: No action required Datetime: 12/16/2016 16:12 EGA: 30.2 Datetime: 12/11/2016 12:24 Fall Score: 0 Fall Risk Score Definition: No Risk: No action required Datetime: 12/11/2016 12:19 EGA: 29.4 Datetime: 11/27/2016 11:04 Fall Score: 0 Fall Risk Score Definition: No Risk: No action required Datetime: 11/27/2016 11:03 EGA: 27.4 Datetime: 11/12/2016 19:44 Fall Score: 0 Fall Risk Score Definition: No Risk: No action required Datetime: 11/11/2016 19:53 Fall Score: 20 Fall Risk Score Definition: No Risk: No action required Datetime: 11/11/2016 07:40 Fall Score: 20 Fall Risk Score Definition: No Risk: No action required Datetime: 11/10/2016 20:21 Fall Score: 20 Fall Risk Score Definition: No Risk: No action required Datetime: 11/09/2016 20:22 Fall Score: 0 Fall Risk Score Definition: No Risk: No action required Datetime: 11/09/2016 19:47 EGA: 25.1 Datetime: 11/09/2016 17:00 EGA: 25.0 Datetime: 10/30/2016 23:25 Fall Score: 0 Fall Risk Score Definition: No Risk: No action required Datetime: 10/29/2016 23:51 Fall Score: 0 Fall Risk Score Definition: No Risk: No action required Datetime: 10/29/2016 23:35 Fall Score: 0 Fall Risk Score Definition: No Risk: No action required Datetime: 10/29/2016 23:20 EGA: 23.4 Datetime: 10/19/2016 22:45 Fall Score: 0 Fall Risk Score Definition: No Risk: No action required Datetime: 10/18/2016 22:25 EGA: 21.6 Datetime: 10/09/2016 07:29 Fall Score: 0 Fall Risk Score Definition: No Risk: No action required Datetime: 10/08/2016 19:54 Fall Score: 0 Fall Risk Score Definition: No Risk: No action required Datetime: 10/08/2016 16:08 Fall Score: 0 Fall Risk Score Definition: No Risk: No action required Datetime: 10/08/2016 16:03 EGA: 20.3
== END 2016-12-29 16:35 | disposition home or self-care (01) ==
LOC: L-D 14:44 → OBT 14:44
PROVIDERS: ATTEND Obstetrics & Gynecology
DX: O26.893 Other specified pregnancy related conditions, third trimester (principal); R10.9 Unspecified abdominal pain; O36.8130 Decreased fetal movements, third trimester, not applicable or unspecified; O24.313 Unspecified pre-existing diabetes mellitus in pregnancy, third trimester; E11.9 Type 2 diabetes mellitus without complications; Z3A.32 32 weeks gestation of pregnancy; Z79.84 Long term (current) use of oral hypoglycemic drugs
CPT/HCPCS: 76817; 76818; G0463

== ENCOUNTER 2017-01-08 23:24 | Outpatient (CLI) | payer OTHER ==
[~2017-01-08] VITALS: Ht 154.9 cm; Wt 112.9 kg
[2017-01-09 00:10] VITALS: Ht 154.9 cm; Wt 112.9 kg
[2017-01-09 00:11] VITALS: BP 112/68; PULSE 108; RESP 18
[2017-01-09] MEDS ORDERED: LACTATED RINGER'S 1,000 ML IV ONE (00:30)
[2017-01-09] MEDS ORDERED: NIFEdipine 10 MG CAP PO SCH (00:30)
[2017-01-09] MEDS ORDERED: LACTATED RINGER'S 1,000 ML IV SCH (01:30)
--- NOTE | 2017-01-09 02:17 | QN ---
Documentation Comment 33+wks GA for R/o labor GDMA2 +FM No VB No LOF No CTXs NST reassring [place] No CTXs --->IF BPP 8/8 and CX is closed she can be discharged and followed up in 2 days for NST BPP --->instructions discussed with patient ATILIO MARTINEZ M.D. January 09, 2017 02:17
--- NOTE | 2017-01-09 03:16 | TRIAGE ---
OB Triage Datetime Report Generated by CPN: 01/09/2017 03:15 Datetime: 01/09/2017 02:07 Stage of : OB Triage Datetime: 01/09/2017 02:06 Vaginal Exam Dilatation (cms): 0.0 Effacement (%): 50 Station: -4 Exam By: Moises MARTIN Vaginal Bleeding: None Cervix, Consistency: Firm Cervix, Position: Posterior Presentation 'A': Unable to Assess Datetime: 01/09/2017 01:46 Stage of : OB Triage Pain Assessment Pain Scale: 3 Pain Presence: Constant Pain Type: Ache Pain Location: Abdomen Pain Relief Measures: Comfort Measures Datetime: 01/09/2017 01:30 Stage of : OB Triage Labor Evaluation Frequency: 0 Monitor Mode: External Resting Tone [place]: Relaxed Contraction Comments: Pt denies feeling ucs, cramping, tightening of abdomen. Abdomen remains soft on palpation Heart Rate FHR Baseline Rate: 155 Variability: Moderate 6-25 bpm Accelerations: 15X15 Decelerations: None Category: Category I Datetime: 01/09/2017 00:30 Stage of : OB Triage Labor Evaluation Frequency: X5 Monitor Mode: External Duration (sec)2399: 40-50 Quality: Mild Resting Tone [place]: Relaxed Heart Rate FHR Baseline Rate: 150 Monitor Mode: External US Variability: Moderate 6-25 bpm Accelerations: 15X15 Decelerations: None Category: Category I Datetime: 01/08/2017 23:58 Time of Arrival: 01/08/2017 23:16 EGA: 33.4 Arrived By: Wheelchair Arrived From: Home Chief Complaint: w/ hx A2Dm and PTL to OB triage w/ c/o rt side teresa and cramping and cough/ cold Movement: Present Contractions: Occasional Time Contractions Began: 01/08/2017 00:00 Rupture of Membranes: Denies Vaginal Bleeding: None Vaginal Discharge: Denies Recent Sexual Intercouse: Denies Abdominal Trauma: Not Applicable Patient Complaints: Cramping; Cough Time Provider Notified: 01/08/2017 23:50 Provider Notified: Dr Kaplan Initial Plan: IV hydration, Procardia 20MG Datetime: 01/08/2017 23:48 Stage of : OB Triage Datetime: 01/08/2017 23:35 Stage of : OB Triage Maternal Assessment Level of Consciousness: Fully Conscious Headache: Denies Blurred Vision: No Nausea/Vomiting: Denies RUQ Epigastric Pain: Denies Facial Edema: None Monitor Mode: External Resting Tone [place]: Relaxed Monitor Mode: External US Comments: FHT 160 Pain Presence: Intermittent Pain Type: Stabbing Datetime: 12/29/2016 14:56 Fall Risk Assessment Fall Score: 0 Fall Risk Score Definition: No Risk: No action required Datetime: 12/29/2016 14:55 EGA: 32.1 Datetime: 12/20/2016 18:26 EGA: 30.6 Fall Risk Assessment Fall Score: 0 Fall Risk Score Definition: No Risk: No action required Datetime: 12/16/2016 16:19 Fall Risk Assessment Fall Score: 0 Fall Risk Score Definition: No Risk: No action required Datetime: 12/16/2016 16:12 EGA: 30.2 Datetime: 12/11/2016 12:24 Fall Risk Assessment Fall Score: 0 Fall Risk Score Definition: No Risk: No action required Datetime: 12/11/2016 12:19 EGA: 29.4 Datetime: 11/27/2016 11:04 Fall Risk Assessment Fall Score: 0 Fall Risk Score Definition: No Risk: No action required Datetime: 11/27/2016 11:03 EGA: 27.4 Datetime: 11/12/2016 19:44 Fall Risk Assessment Fall Score: 0 Fall Risk Score Definition: No Risk: No action required Datetime: 11/11/2016 19:53 Fall Risk Assessment Fall Score: 20 Fall Risk Score Definition: No Risk: No action required Datetime: 11/11/2016 07:40 Fall Risk Assessment Fall Score: 20 Fall Risk Score Definition: No Risk: No action required Datetime: 11/10/2016 20:21 Fall Risk Assessment Fall Score: 20 Fall Risk Score Definition: No Risk: No action required Datetime: 11/09/2016 20:22 Fall Risk Assessment Fall Score: 0 Fall Risk Score Definition: No Risk: No action required Datetime: 11/09/2016 19:47 EGA: 25.1 Datetime: 11/09/2016 17:00 EGA: 25.0 Datetime: 10/30/2016 23:25 Fall Risk Assessment Fall Score: 0 Fall Risk Score Definition: No Risk: No action required Datetime: 10/29/2016 23:51 Fall Risk Assessment Fall Score: 0 Fall Risk Score Definition: No Risk: No action required Datetime: 10/29/2016 23:35 Fall Risk Assessment Fall Score: 0 Fall Risk Score Definition: No Risk: No action required Datetime: 10/29/2016 23:20 EGA: 23.4 Datetime: 10/19/2016 22:45 Fall Risk Assessment Fall Score: 0 Fall Risk Score Definition: No Risk: No action required Datetime: 10/18/2016 22:25 EGA: 21.6 Datetime: 10/09/2016 07:29 Fall Risk Assessment Fall Score: 0 Fall Risk Score Definition: No Risk: No action required Datetime: 10/08/2016 19:54 Fall Risk Assessment Fall Score: 0 Fall Risk Score Definition: No Risk: No action required Datetime: 10/08/2016 16:08 Fall Risk Assessment Fall Score: 0 Fall Risk Score Definition: No Risk: No action required Datetime: 10/08/2016 16:03 EGA: 20.3
== END 2017-01-09 02:22 | disposition home or self-care (01) ==
LOC: OBT 23:24 → L-D 23:25 → OBT 01-09 02:22
PROVIDERS: ATTEND Obstetrics & Gynecology
DX: O24.415 Gestational diabetes mellitus in pregnancy, controlled by oral hypoglycemic drugs (principal); Z3A.33 33 weeks gestation of pregnancy
CPT/HCPCS: J7120; Z7610; 36415; 96360; 96361; G0463

== ENCOUNTER 2017-01-10 11:57 | Outpatient (CLI) | payer OTHER ==
[~2017-01-10] VITALS: Ht 154.9 cm; Wt 111.9 kg
[2017-01-10 12:02] VITALS: Ht 154.9 cm; Wt 111.9 kg
[2017-01-10 12:03] VITALS: BP 118/72; PULSE 110; RESP 19
--- NOTE | 2017-01-10 12:58 | RADRPT ---
PROCEDURE: US OB. CLINICAL INDICATION: Gestational diabetes TECHNIQUE: Pelvic ultrasound performed for biophysical profile. COMPARISON: 01/08/2017 FINDINGS: Single intrauterine gestation present with heart rate at 08/1934 beats per minute. Presentation is transverse maternal right. Placenta is posterior grade II. Biophysical profile score is 8/8 (breat sonia=2, movement=2, tone =2, fluid volume=2). Amniotic fluid volume is within normal limits, with AF I = 21.2 cm. IMPRESSION: Single live intrauterine gestation. VALENTIN of 21.2 cm. Biophysical profile score 8/8. .Kayla Carrillo MD, MD Date Time Electronically viewed and signed by .Kayla Carrillo MD, on 01/10/2017 12:57 .M/
--- NOTE | 2017-01-10 13:28 | TRIAGE ---
OB Triage Datetime Report Generated by CPN: 01/10/2017 13:27 Datetime: 01/10/2017 13:02 Level of Consciousness: Fully Conscious DTR's/Clonus: DTRs 1+ Headache: Denies Blurred Vision: No Respiratory Effort: Unlabored Breath Sounds, Left: Clear and Equal Breath Sounds, Right: Clear and Equal Nausea/Vomiting: Denies RUQ Epigastric Pain: Denies Facial Edema: None Frequency: NONE Monitor Mode: External Resting Tone [place]: Relaxed FHR Baseline Rate: 130 Monitor Mode: External US Variability: Moderate 6-25 bpm Accelerations: 15X15 Decelerations: None Category: Category I Pain Presence: None/Denies Pain Type: N/A Membrane Status: Intact Datetime: 01/10/2017 12:00 Assessment Type: Triage Level of Consciousness: Fully Conscious DTR's/Clonus: DTRs 2+; No Clonus Headache: Denies Blurred Vision: No Respiratory Effort: Unlabored; Regular Rhythm; Equal Expansion Breath Sounds, Left: Clear and Equal Breath Sounds, Right: Clear and Equal Nausea/Vomiting: Denies RUQ Epigastric Pain: Denies Lower Extremities Edema: None Degree: None Upper Extremities Edema: None Degree: None Facial Edema: None History of Falling: (0) No Secondary Diagnosis: (0) No Ambulatory Aid: (0) Bedrest/Nurse Assist IV Therapy: (0) No Gait: (0) Normal/Bedrest/Immobile Mental Status: (0) Oriented to Own Ability Fall Score: 0 Fall Risk Score Definition: No Risk: No action required Datetime: 01/10/2017 11:54 Time of Arrival: 01/10/2017 11:54 EGA: 33.6 Arrived By: Ambulatory Arrived From: Home Chief Complaint: PT CAME IN FOR NST AND BPP FOR GDM Movement: Present Contractions: Denies/Absent Rupture of Membranes: Denies Vaginal Discharge: Denies Recent Sexual Intercouse: Denies Abdominal Trauma: Not Applicable Additional Patient Complaints: DENIES ANY PROBLEM Time Provider Notified: 01/10/2017 12:11 Provider Notified: CARLOS Initial Plan: NST AND BPP
== END 2017-01-10 13:11 | disposition home or self-care (01) ==
LOC: OBT 11:57 → L-D 11:58 → OBT 13:11
PROVIDERS: ATTEND Obstetrics & Gynecology
DX: O24.419 Gestational diabetes mellitus in pregnancy, unspecified control (principal); Z3A.34 34 weeks gestation of pregnancy
CPT/HCPCS: 76818; Z7500; G0463

== ENCOUNTER 2017-01-16 00:07 | Inpatient (IN) | payer OTHER ==
[~2017-01-16] VITALS: Ht 154.9 cm; Wt 113.0 kg
[2017-01-16 00:28] VITALS: Ht 154.9 cm; Wt 113.0 kg
[2017-01-16 00:32] VITALS: BP 110/78; PULSE 107; RESP 18
[2017-01-16] MEDS ORDERED: INSULIN REGULAR, HUMAN 100 UNIT/1 ML 3ML VIAL SC ONE (01:30)
[2017-01-16] MEDS: LACTATED RINGER'S 1,000 ML IV SCH ×2 (01:50→09:17)
[2017-01-16] MEDS ORDERED: ACCU-CHEK XX SCH (02:17)
[2017-01-16 02:50] LABS: ADD UMIC NO; URINE BILIRUBIN (Dip) NEGATIVE (NEGATIVE); URINE BLOOD (Dip) NEGATIVE (NEGATIVE); URINE COLOR LT. YELLOW (YELLOW); URINE KETONES (Dip) TRACE (NEGATIVE); URINE LEUKOCYTE ESTERASE (Dip) NEGATIVE (NEGATIVE); URINE NITRITE (Dip) NEGATIVE (NEGATIVE); URINE TOTAL PROTEIN (Dip) NEGATIVE (NEGATIVE); URINE UROBILINOGEN (Dip) 1.0 E.U./dL (0.1-1.0)
[2017-01-16 05:50] LABS: ADD SCAN DIFF NO
[2017-01-16 05:54] LABS: BASOPHILS % 0.2 % (0.0-2.0); EOSINOPHILS # 0.1 10^3/ul (0.0-0.5); EOSINOPHILS % 1.1 % (0.0-7.0); HEMATOCRIT 36.3 % (37.0-47.0); HEMOGLOBIN 11.9 g/dl (12.0-16.0); LYMPHOCYTES # 3.8 10^3/ul (0.8-2.9); LYMPHOCYTES % 30.8 % (15.0-51.0); MEAN CORPUSCULAR HEMOGLOBIN 27.5 pg (29.0-33.0); MEAN CORPUSCULAR HGB CONC 32.8 g/dl (32.0-37.0); MEAN CORPUSCULAR VOLUME 83.8 fl (82.0-101.0); MEAN PLATELET VOLUME 9.7 fl (7.4-10.4); MONOCYTE # 0.8 10^3/ul (0.3-0.9); MONOCYTES % 6.2 % (0.0-11.0); NEUTROPHIL # 7.5 10^3/ul (1.6-7.5); PLATELET COUNT 264 10^3/UL (140-415); RED BLOOD COUNT 4.33 10^6/ul (4.20-5.40); RED CELL DISTRIBUTION WIDTH 13.3 % (11.5-14.5); WHITE BLOOD COUNT 12.3 10^3/ul (4.8-10.8)
[2017-01-16] MEDS: NIFEdipine 10 MG CAP PO SCH ×3 (06:07→18:06)
[2017-01-16 06:17] LABS: ALBUMIN 2.9 g/dl (3.3-4.9)
[2017-01-16 06:18] LABS: POTASSIUM 4.1 mmol/L (3.5-5.1)
[2017-01-16 06:19] LABS: PROTIME 13.2 Sec (12.2-14.2)
[2017-01-16 06:20] LABS: CREATININE 0.51 mg/dl (0.44-1.00)
[2017-01-16 06:21] LABS: ALBUMIN/GLOBULIN RATIO 0.8; CALCIUM 9.3 mg/dl (8.4-10.2); TOTAL PROTEIN 6.5 g/dl (6.1-8.1)
[2017-01-16] MEDS ORDERED: GLUCOSE GEL 15 GRAM TUBE BUCCAL PRN (07:30)
[2017-01-16] MEDS ORDERED: GLUCAGON 1 MG INJ IM PRN (07:30)
[2017-01-16] MEDS ORDERED: GLUCOSE GEL 15 GRAM TUBE PO PRN ×2 (07:30)
[2017-01-16] MEDS: ACCU-CHEK XX SCH ×6 (07:30→20:08)
[2017-01-16] MEDS ORDERED: DEXTROSE 50% 50 ML SYRINGE IV PRN ×2 (07:30)
[2017-01-16] MEDS ORDERED: metFORMIN 500 MG TAB PO SCH ×4 (08:00→21:00)
--- NOTE | 2017-01-16 08:56 | HP ---
DATE OF ADMISSION: 01/16/2017 HISTORY OF PRESENT ILLNESS: The patient is a 26-year-old G3, P2, who presents at 34-1/2 weeks compl aining of abdominal cramping. No leakage of fluid. No vaginal bleeding. Positive . PAST MEDICAL HISTORY: Gestational diabetes. PHYSICAL EXAMINATION: VITAL SIGNS: Elevated at 140s, 150s. Other vitals within normal limits. Examination is within normal limits. LABORATORY DATA: Blood sugar done was 250. ASSESSMENT: Intrauterine at 34-1/2 weeks with uncontrolled diabetes, and also patient wit h elevated blood pressures. The patient is going to be admitted for diabetes control and also blood pressure management to rule out possible preeclampsia. . Dictated By: SATISH ASHTON MD /NTS Conf#: [id number] DID#: [id number]
[2017-01-16] MEDS ORDERED: DOCUSATE SODIUM 100 MG CAP PO SCH (09:00)
[2017-01-16] MEDS ORDERED: MULTIVIT/MIN/FOLATE/IRON/PREN TAB PO SCH (09:00)
[2017-01-16] MEDS: INSULIN ASPART [NOVOLOG] 3 ML PEN SC SCH ×3 (10:00→20:05)
[2017-01-16 10:23] LABS: FIBRIN SPLIT PRODUCT <10 ug/ml (<10)
[2017-01-16] MEDS ORDERED: LACTATED RINGER'S 1,000 ML IV STA (11:51)
--- NOTE | 2017-01-16 20:30 | PD.PPDC ---
TRADE RECRUITER Discharge Instruction Condition Patient Condition: Good Diet Diet: Special Diet Activity/Restrictions Activity: Normal Activity Follow-up Follow-up with Physician: 3, Day/Days Return to clinic for RENAL MEDICINE SPECIALIST Instructions: Worsening abdominal pain OB Instructions: Blurried Vision Headache LAURI NELSON MD January 16, 2017 20:30
--- NOTE | 2017-01-16 20:36 | DS ---
Date/Time of Note Date/Time of Note DATE: 01/16/17 TIME: 20:33 Obstetrical Discharge Record Final Diagnosis Final Diagnosis: not delivered Other Final Diagnosis Gestational DM. Complications Gestational Diabetes, Preg induced Hypertension Augmentation: No Induction: No Condition on Discharge Physical Assessment Last Vitals: BP= 95/53, 140/ 77 Last blood sugar 139 Voiding: Yes Bowel Movement: Yes Calf Tenderness: No Patient Condition: Good LAURI NELSON MD January 16, 2017 20:36
[2017-01-17] MEDS ORDERED: metFORMIN 500 MG TAB PO SCH (08:00)
== END 2017-01-16 21:03 | disposition home or self-care (01) | DRG 781 ==
LOC: OBT 00:07 → L-D 00:07 → OBT 02:07 → OBG 02:08
PROVIDERS: ADMIT Obstetrics & Gynecology; ATTEND Obstetrics & Gynecology
DX: O24.419 Gestational diabetes mellitus in pregnancy, unspecified control (principal); Z3A.34 34 weeks gestation of pregnancy
CPT/HCPCS: 36415; 80053; 81003; 82962; 83036; 84560; 85025; 85362; 85384; 85610; 85730; 96360; G0463; J1815; J7120

== ENCOUNTER 2017-01-24 09:58 | Inpatient (IN) | payer OTHER ==
[~2017-01-24] VITALS: Ht 154.9 cm; Wt 115.2 kg
[2017-01-24 10:15] VITALS: Ht 154.9 cm; Wt 115.2 kg
--- NOTE | 2017-01-24 10:58 | RADRPT ---
PROCEDURE: OB ultrasound limited for biophysical profile . CLINICAL INDICATION: Contractions TECHNIQUE: Multiple sonographic images of the pelvis were obtained. Transabdominal view of the gr avid uterus are available for review. The images were reviewed on a PACS workstation. COMPARISON: 01/10/2017 FINDINGS: breathing movement = 2/2 tone = 2/2 motion = 2/2 Amniotic fluid volume = 0/2 VALENTIN = 21.5 cm consistent with borderline polyhydramnios. Cephalic presentation. Heart rate 139 beats per minute. Posterior grade II placenta. IMPRESSION: 1. Single viable intrauterine gestation. 2. Biophysical profile = 01/28 3. Borderline polyhydramnios with VALENTIN = 21.5 cm. RPTAT: QQ .Moise Gagnon MD, Date Time Electronically viewed and signed by .Moise Gagnon MD, on 01/24/2017 10:57 .L/
[2017-01-24 12:07] LABS: ADD SCAN DIFF NO
[2017-01-24 12:15] LABS: ADD UMIC YES; URINE BILIRUBIN (Dip) NEGATIVE (NEGATIVE); URINE BLOOD (Dip) NEGATIVE (NEGATIVE); URINE COLOR LT. YELLOW (YELLOW); URINE GLUCOSE (Dip) NEGATIVE (NEGATIVE); URINE KETONES (Dip) 15 (NEGATIVE); URINE LEUKOCYTE ESTERASE (Dip) NEGATIVE (NEGATIVE); URINE NITRITE (Dip) NEGATIVE (NEGATIVE); URINE TOTAL PROTEIN (Dip) 1+ (NEGATIVE); URINE UROBILINOGEN (Dip) 0.2 E.U./dL (0.1-1.0)
[2017-01-24 12:21] LABS: BASOPHILS % 0.1 % (0.0-2.0); EOSINOPHILS % 0.4 % (0.0-7.0); HEMATOCRIT 36.1 % (37.0-47.0); HEMOGLOBIN 11.9 g/dl (12.0-16.0); LYMPHOCYTES # 2.5 10^3/ul (0.8-2.9); LYMPHOCYTES % 23.3 % (15.0-51.0); MEAN CORPUSCULAR HEMOGLOBIN 27.5 pg (29.0-33.0); MEAN CORPUSCULAR VOLUME 83.6 fl (82.0-101.0); MEAN PLATELET VOLUME 9.9 fl (7.4-10.4); MONOCYTE # 0.6 10^3/ul (0.3-0.9); MONOCYTES % 5.1 % (0.0-11.0); NEUTROPHIL # 7.6 10^3/ul (1.6-7.5); NEUTROPHILS % 70.8 % (39.0-77.0); PLATELET COUNT 250 10^3/UL (140-415); RED BLOOD COUNT 4.32 10^6/ul (4.20-5.40); RED CELL DISTRIBUTION WIDTH 13.8 % (11.5-14.5); WHITE BLOOD COUNT 10.7 10^3/ul (4.8-10.8)
[2017-01-24 12:25] LABS: INR 0.99; PARTIAL THROMBOPLASTIN TIME 24.4 Sec (25.0-35.0); PROTIME 13.1 Sec (12.2-14.2)
[2017-01-24 12:27] LABS: ALBUMIN 3.7 g/dl (3.3-4.9); ALBUMIN/GLOBULIN RATIO 1.32; BILIRUBIN,INDIRECT 0.2 mg/dl (0-1.1); BILIRUBIN,TOTAL 0.2 mg/dl (0.2-1.3); CALCIUM 8.7 mg/dl (8.4-10.2); CREATININE 0.47 mg/dl (0.44-1.00); POTASSIUM 3.8 mmol/L (3.5-5.1); TOTAL PROTEIN 6.5 g/dl (6.1-8.1); URIC ACID 5.9 mg/dl (3.1-7.9)
[2017-01-24 12:30] LABS: BACTERIA,URINE FEW; SQUAMOUS EPITHELIAL CELL,UR MODERATE; URINE RBCS NONE SEEN /HPF (0)
--- NOTE | 2017-01-24 13:08 | HP ---
Date/Time of Note Date/Time of Note DATE: 01/24/17 TIME: 13:04 OB - History Hx of Present Free Text/Dictation @35+wks GA with Hx of 2 previous c/section with Vomiting and occasional CTXs GDMA2 on metformin Hx of preeclampsi uric acid 5.9 +pr in Urine Bp WNL : 3 Para: 2 Care: Good Care Ultrasounds: Normal mid trimester US Obstetrical Complications: Gestational Diabetes, Gestational Hypertension Medical Complications: None Past Family/Social History * Past Medical, Surgical, Family and Obstetric Histories reviewed from chart. OB Admission Exam Physical Exam Abdomen: WNL Extremities: Normal Reflexes: Normal Cervical Dilatation: None Membranes: Intact Heart Rate: 140's Accelerations: Accelerations Present Decelerations: No Decelerations Varibility: Moderate Contractions on Admission: >10 Minutes Apart Last 72 hours Lab Results CBC & BMP 01/24/17 11:58 Liver Function Test 01/24/17 11:58 Alanine Aminotransferase (ALT/SGPT) 23 Albumin 3.7 Alkaline Phosphatase 121 Aspartate Amino Transf (AST/SGOT) 15 Direct Bilirubin 0.00 Total Protein 6.5 OB Assessment/Plan Reason for admission: observation Plan: Expectant Management Other plan: Prenatalogy consult Repeat PIH panel 24 hr urine for pr close Observation ATILIO MARTINEZ M.D. Jan 24, 2017 13:08
[2017-01-24] MEDS ORDERED: LACTATED RINGER'S 1,000 ML IV SCH (13:25)
[2017-01-24] MEDS ORDERED: ACCU-CHEK XX SCH (13:30)
[2017-01-24] MEDS ORDERED: GLUCOSE GEL 15 GRAM TUBE BUCCAL PRN (14:00)
[2017-01-24] MEDS ORDERED: GLUCOSE GEL 15 GRAM TUBE PO PRN ×2 (14:00)
[2017-01-24] MEDS ORDERED: DEXTROSE 50% 50 ML SYRINGE IV PRN ×2 (14:00)
[2017-01-24] MEDS ORDERED: GLUCAGON 1 MG INJ IM PRN (14:00)
--- NOTE | 2017-01-24 14:35 | RADRPT ---
PROCEDURE: Obstetrical ultrasound greater than 14 weeks CLINICAL INDICATION: TECHNIQUE: Real time sonographic imaging of the gravid uterus is performed transabdominally and mu ltiple static kurtz scale and Doppler images are submitted for review as are measurements. The image s are reviewed on the PACS. COMPARISON: Pelvic ultrasound performed same day FINDINGS: The cervical os is closed . There is a single living intrauterine gestation in cephalic presentation. The heart beat is estimated at 148.2 bpm. The measurements are as follows: BPD:9 cm HC:33 cm AC:34.02 cm FL:6.53 cm Estimated gestational age is 36 weeks and 3 days. The estimated date of delivery is 02/18/2017. The estimated weight is 3011 grams plus or minus 451 g. Placenta is posterior and grade 2 . There is no evidence of placenta previa or abruption. anatomic survey is performed and shows no abnormality, the three-vessel cord and cord insertio n are unremarkable. The amniotic fluid index is normal estimated at 21.5 cm. RPTAT: [facility] IMPRESSION: 1. Single viable intrauterine gestation estimated at 36 weeks 3 days with the estimated date of deli very 02/18/2017. 2. EFW of 3011 g .Kayla Carrillo MD, Date Time Electronically viewed and signed by .Kayla Carrillo MD, MD on 01/24/2017 14:35 .M/
--- NOTE | 2017-01-24 15:17 | TRIAGE ---
OB Triage Datetime Report Generated by CPN: 01/24/2017 15:16 Datetime: 01/24/2017 14:00 Labor Evaluation Frequency: 0 Monitor Mode: External Heart Rate FHR Baseline Rate: 135 Monitor Mode: External US FHR Baseline Changes: No Baseline Change Variability: Moderate 6-25 bpm Accelerations: 15X15 Decelerations: None Category: Category I Pain Presence: None/Denies Datetime: 01/24/2017 12:00 Labor Evaluation Frequency: X2 Monitor Mode: External Duration (sec)2399: 40 Quality: Mild Pattern: Normal: <= 5 Contractions in 10 Minutes Resting Tone [place]: Relaxed Heart Rate FHR Baseline Rate: 130 Monitor Mode: External US FHR Baseline Changes: No Baseline Change Variability: Moderate 6-25 bpm Accelerations: 15X15 Decelerations: None Category: Category I Pain Assessment Pain Scale: 5 Pain Presence: None/Denies Pain Type: N/A Pain Goal: 0 Datetime: 01/24/2017 11:15 Labor Evaluation Frequency: 1-2/HR Monitor Mode: External Duration (sec)2399: 60-70 Quality: Mild Pattern: Normal: <= 5 Contractions in 10 Minutes Resting Tone [place]: Relaxed Heart Rate FHR Baseline Rate: 135 Monitor Mode: External US FHR Baseline Changes: No Baseline Change Variability: Moderate 6-25 bpm Accelerations: 15X15 Decelerations: None Category: Category I Pain Assessment Pain Scale: 5 Pain Presence: Intermittent Pain Type: Cramping Pain Location: Abdomen Pain Relief Measures: Comfort Measures Datetime: 01/24/2017 10:20 Stage of : OB Triage Assessment Type: Triage Maternal Assessment Level of Consciousness: Fully Conscious DTR's/Clonus: DTRs 2+; No Clonus Headache: Denies Blurred Vision: No Respiratory Effort: Unlabored; Regular Rhythm; Equal Expansion Breath Sounds, Left: Clear and Equal Breath Sounds, Right: Clear and Equal Nausea/Vomiting: Denies RUQ Epigastric Pain: Denies Lower Extremities Edema: Bilateral Lower Extremities Degree: 1+ Upper Extremities Edema: Bilateral Upper Extremities Degree: 2+ Facial Edema: None Temperature Route: Oral Fall Risk Assessment History of Falling: (0) No Secondary Diagnosis: (0) No Ambulatory Aid: (0) Bedrest/Nurse Assist IV Therapy: (0) No Gait: (0) Normal/Bedrest/Immobile Mental Status: (0) Oriented to Own Ability Fall Score: 0 Fall Risk Score Definition: No Risk: No action required Monitor Mode: External Duration (sec)2399: OCC Quality: Mild Pattern: Normal: <= 5 Contractions in 10 Minutes Resting Tone [place]: Relaxed Heart Rate FHR Baseline Rate: 135 Monitor Mode: External US FHR Baseline Changes: No Baseline Change Variability: Moderate 6-25 bpm Accelerations: 15X15 Decelerations: None Category: Category I Pain Assessment Pain Scale: 5 Pain Presence: Intermittent Pain Type: Cramping Pain Location: Abdomen Pain Relief Measures: Comfort Measures Membrane Status: Intact Datetime: 01/16/2017 20:25 Labor Evaluation Frequency: none Monitor Mode: External Resting Tone [place]: Relaxed Heart Rate FHR Baseline Rate: 140 Monitor Mode: External US FHR Baseline Changes: No Baseline Change Variability: Moderate 6-25 bpm Accelerations: 15X15 Decelerations: None Category: Category I Comments: EFM off. Dr Renee at BS. Pt to discharge home undelivered in stable condition. Datetime: 01/16/2017 20:00 Labor Evaluation Frequency: none Monitor Mode: External Resting Tone [place]: Relaxed Heart Rate FHR Baseline Rate: 145 Monitor Mode: External US FHR Baseline Changes: No Baseline Change Variability: Moderate 6-25 bpm Accelerations: 15X15 Decelerations: None Category: Category I Datetime: 01/16/2017 19:41 Assessment Type: Ongoing Assessment Maternal Assessment Level of Consciousness: Fully Conscious DTR's/Clonus: DTRs 2+; No Clonus Headache: Denies Blurred Vision: No Respiratory Effort: Unlabored; Regular Rhythm; Equal Expansion Breath Sounds, Left: Clear and Equal Breath Sounds, Right: Clear and Equal Nausea/Vomiting: Denies RUQ Epigastric Pain: Denies Lower Extremities Edema: None Degree: None Upper Extremities Edema: None Degree: None Facial Edema: None Fall Risk Assessment History of Falling: (0) No Secondary Diagnosis: (0) No Ambulatory Aid: (0) Bedrest/Nurse Assist IV Therapy: (0) No Gait: (0) Normal/Bedrest/Immobile Mental Status: (0) Oriented to Own Ability Fall Score: 0 Fall Risk Score Definition: No Risk: No action required Datetime: 01/16/2017 19:40 Stage of : Antepartum Temperature Route: Oral Datetime: 01/16/2017 19:00 Labor Evaluation Frequency: 0 Monitor Mode: External Resting Tone [place]: Relaxed Heart Rate FHR Baseline Rate: LOSS OF INFORMATION Monitor Mode: External US Datetime: 01/16/2017 18:30 Labor Evaluation Frequency: 0 Monitor Mode: External Resting Tone [place]: Relaxed Heart Rate FHR Baseline Rate: 130 Monitor Mode: External US FHR Baseline Changes: No Baseline Change Variability: Moderate 6-25 bpm Accelerations: 15X15 Decelerations: None Category: Category I Datetime: 01/16/2017 17:00 Labor Evaluation Frequency: 0 Monitor Mode: External Resting Tone [place]: Relaxed Monitor Mode: External US Datetime: 01/16/2017 16:00 Stage of : Antepartum Temperature Route: Oral Labor Evaluation Frequency: X2 Monitor Mode: External Resting Tone [place]: Relaxed Heart Rate FHR Baseline Rate: 140 Monitor Mode: External US FHR Baseline Changes: No Baseline Change Variability: Moderate 6-25 bpm Accelerations: 15X15 Decelerations: None Category: Category I Pain Assessment Pain Scale: 0 Pain Presence: None/Denies Datetime: 01/16/2017 15:01 Bedside Blood Glucose: 87 Datetime: 01/16/2017 15:00 Stage of : Antepartum Labor Evaluation Frequency: 0 Monitor Mode: External Resting Tone [place]: Relaxed Heart Rate FHR Baseline Rate: 145 Monitor Mode: External US FHR Baseline Changes: No Baseline Change Variability: Moderate 6-25 bpm Accelerations: 15X15 Decelerations: None Category: Category I Datetime: 01/16/2017 14:09 Stage of : Antepartum Datetime: 01/16/2017 14:00 Labor Evaluation Frequency: 0 Monitor Mode: External Resting Tone [place]: Relaxed Heart Rate FHR Baseline Rate: 145 Monitor Mode: External US FHR Baseline Changes: No Baseline Change Variability: Moderate 6-25 bpm Accelerations: 15X15 Decelerations: None Category: Category I Datetime: 01/16/2017 13:23 Labor Evaluation Frequency: X3 LAST HOUR Monitor Mode: External Heart Rate FHR Baseline Rate: LOSS OF CONTACT Monitor Mode: External US Datetime: 01/16/2017 12:30 Labor Evaluation Frequency: 0 Monitor Mode: External Heart Rate FHR Baseline Rate: 130 Monitor Mode: External US FHR Baseline Changes: No Baseline Change Variability: Moderate 6-25 bpm Accelerations: 15X15 Decelerations: None Category: Category I Datetime: 01/16/2017 11:44 Labor Evaluation Frequency: X2 Monitor Mode: External Resting Tone [place]: Relaxed Heart Rate FHR Baseline Rate: 130 Monitor Mode: External US FHR Baseline Changes: No Baseline Change Variability: Moderate 6-25 bpm Accelerations: 15X15 Decelerations: None Category: Category I Datetime: 01/16/2017 11:39 Stage of : Antepartum Temperature Route: Oral Pain Assessment Pain Scale: 0 Pain Presence: None/Denies Datetime: 01/16/2017 11:00 Labor Evaluation Frequency: 3-13 Monitor Mode: External Duration (sec)2399: 40-60 Quality: Mild Resting Tone [place]: Relaxed Heart Rate FHR Baseline Rate: 135 FHR Baseline Changes: No Baseline Change Variability: Moderate 6-25 bpm Accelerations: 15X15 Datetime: 01/16/2017 10:16 Stage of : Antepartum Monitor Mode: External Duration (sec)2399: 5-7 Resting Tone [place]: Relaxed Heart Rate FHR Baseline Rate: 130 Monitor Mode: External US FHR Baseline Changes: No Baseline Change Variability: Moderate 6-25 bpm Accelerations: 15X15 Decelerations: None Category: Category I Datetime: 01/16/2017 10:11 Stage of : Antepartum Datetime: 01/16/2017 08:19 Assessment Type: Ongoing Assessment Maternal Assessment Level of Consciousness: Fully Conscious DTR's/Clonus: DTRs 2+; No Clonus Headache: Denies Blurred Vision: No Respiratory Effort: Unlabored; Regular Rhythm; Equal Expansion Breath Sounds, Left: Clear and Equal Breath Sounds, Right: Clear and Equal Nausea/Vomiting: Denies RUQ Epigastric Pain: Denies Lower Extremities Edema: None Degree: None Upper Extremities Edema: None Degree: None Facial Edema: None Fall Risk Assessment History of Falling: (0) No Secondary Diagnosis: (0) No Ambulatory Aid: (0) Bedrest/Nurse Assist IV Therapy: (0) No Gait: (0) Normal/Bedrest/Immobile Mental Status: (0) Oriented to Own Ability Fall Score: 0 Fall Risk Score Definition: No Risk: No action required Datetime: 01/16/2017 08:08 Stage of : Antepartum Temperature Route: Oral Pain Assessment Pain Scale: 0 Pain Presence: None/Denies Pain Goal: 0 Datetime: 01/16/2017 08:02 Labor Evaluation Frequency: X2 Monitor Mode: External Resting Tone [place]: Relaxed Datetime: 01/16/2017 07:57 Stage of : Antepartum Datetime: 01/16/2017 07:00 Labor Evaluation Frequency: none Monitor Mode: External Quality: Mild Pattern: Normal: <= 5 Contractions in 10 Minutes Resting Tone [place]: Relaxed Heart Rate FHR Baseline Rate: 140 Monitor Mode: External US Variability: Moderate 6-25 bpm Accelerations: 15X15 Decelerations: None Category: Category I Datetime: 01/16/2017 06:00 Labor Evaluation Frequency: none Monitor Mode: External Quality: Mild Pattern: Normal: <= 5 Contractions in 10 Minutes Resting Tone [place]: Relaxed Heart Rate FHR Baseline Rate: 140 Monitor Mode: External US Variability: Moderate 6-25 bpm Accelerations: 15X15 Decelerations: None Category: Category I Pain Presence: None/Denies Datetime: 01/16/2017 05:00 Maternal Assessment Level of Consciousness: Fully Conscious DTR's/Clonus: DTRs 2+ Headache: Denies Blurred Vision: No Nausea/Vomiting: Denies RUQ Epigastric Pain: Denies Labor Evaluation Frequency: NONE Monitor Mode: External Pattern: Normal: <= 5 Contractions in 10 Minutes Resting Tone [place]: Relaxed Heart Rate FHR Baseline Rate: 140 Monitor Mode: External US Variability: Moderate 6-25 bpm Accelerations: 15X15 Decelerations: None Category: Category I Datetime: 01/16/2017 04:52 Stage of : Antepartum Datetime: 01/16/2017 04:00 Labor Evaluation Frequency: NONE Monitor Mode: External Pattern: Normal: <= 5 Contractions in 10 Minutes Resting Tone [place]: Relaxed Heart Rate FHR Baseline Rate: 140 Monitor Mode: External US Variability: Moderate 6-25 bpm Accelerations: 15X15 Decelerations: None Category: Category I Pain Presence: None/Denies Datetime: 01/16/2017 03:30 Maternal Assessment Level of Consciousness: Fully Conscious DTR's/Clonus: DTRs 2+; No Clonus Headache: Denies Blurred Vision: No Nausea/Vomiting: Denies RUQ Epigastric Pain: Denies Facial Edema: None Bedside Blood Glucose: 165 Labor Evaluation Frequency: NONE Monitor Mode: External Pattern: Normal: <= 5 Contractions in 10 Minutes Resting Tone [place]: Non Relaxed Heart Rate FHR Baseline Rate: 140 Monitor Mode: External US Variability: Moderate 6-25 bpm Accelerations: 15X15 Decelerations: None Category: Category I Datetime: 01/16/2017 02:53 Assessment Type: Admission Assessment Time of Arrival: 01/24/2017 10:09 EGA: 35.6 Arrived By: Ambulatory Arrived From: Home Chief Complaint: UC'S, VOMITING Movement: Present Contractions: Irregular Rupture of Membranes: Denies Vaginal Bleeding: None Vaginal Discharge: Denies Recent Sexual Intercouse: Denies Abdominal Trauma: Not Applicable Patient Complaints: Cramping Time Provider Notified: 01/24/2017 11:10 Provider Notified: CARLOS Initial Plan: NST, BPP AND VALENTIN, [facility] Maternal Assessment Level of Consciousness: Fully Conscious DTR's/Clonus: DTRs 2+; No Clonus Headache: Denies Blurred Vision: No Respiratory Effort: Unlabored Breath Sounds, Left: Clear and Equal Breath Sounds, Right: Clear and Equal Lower Extremities Edema: Bilateral Lower Extremities Degree: 1+ Upper Extremities Edema: None Degree: None Facial Edema: None Pain Assessment Pain Scale: 0 Pain Presence: None/Denies Pain Type: N/A Datetime: 01/16/2017 02:30 Stage of : OB Triage Datetime: 01/16/2017 02:26 Stage of : OB Triage Labor Evaluation Frequency: IRREGULAR Monitor Mode: External Duration (sec)2399: 60 Quality: Mild Pattern: Normal: <= 5 Contractions in 10 Minutes Resting Tone [place]: Relaxed Heart Rate FHR Baseline Rate: 145 Monitor Mode: External US FHR Baseline Changes: No Baseline Change Variability: Moderate 6-25 bpm Accelerations: 15X15 Decelerations: Variable Category: Category II Datetime: 01/16/2017 02:20 Stage of : OB Triage Datetime: 01/16/2017 02:17 Stage of : OB Triage Datetime: 01/16/2017 01:58 Stage of : OB Triage Datetime: 01/16/2017 01:30 Stage of : OB Triage Labor Evaluation Frequency: IRREGULAR Monitor Mode: External Duration (sec)2399: 60 Quality: Mild Pattern: Normal: <= 5 Contractions in 10 Minutes Resting Tone [place]: Relaxed Heart Rate FHR Baseline Rate: 155 Monitor Mode: External US FHR Baseline Changes: No Baseline Change Variability: Moderate 6-25 bpm Accelerations: 15X15 Decelerations: Variable Category: Category II Datetime: 01/16/2017 01:10 Stage of : OB Triage Datetime: 01/16/2017 01:05 Stage of : OB Triage Datetime: 01/16/2017 00:45 Vaginal Exam Dilatation (cms): 0.0 Effacement (%): 0 Station: -3 Exam By: Ronda MARION RN Vaginal Bleeding: None Cervix, Consistency: Firm Cervix, Position: Posterior Datetime: 01/16/2017 00:22 Stage of : OB Triage Time of Arrival: 01/16/2017 00:00 EGA: 34.5 Arrived By: Wheelchair Arrived From: Home Chief Complaint: TIGHTENING, LOWER BACK PAIN Movement: Present Contractions: Irregular Time Contractions Began: 01/16/2017 15:00 Rupture of Membranes: Denies Vaginal Bleeding: None Vaginal Discharge: Denies Recent Sexual Intercouse: Denies Abdominal Trauma: Not Applicable Patient Complaints: None (Annotations: Data stored by CPN on behalf of user) Time Provider Notified: 01/16/2017 01:05 Provider Notified: DR ASHTON Initial Plan: CALL MAURO AVILES Maternal Assessment Level of Consciousness: Fully Conscious DTR's/Clonus: DTRs 2+; No Clonus Headache: Denies Blurred Vision: No Respiratory Effort: Unlabored; Regular Rhythm; Equal Expansion Breath Sounds, Left: Clear and Equal Breath Sounds, Right: Clear and Equal Nausea/Vomiting: Denies RUQ Epigastric Pain: Denies Lower Extremities Edema: None Degree: None Upper Extremities Edema: None Degree: None Facial Edema: None Temperature Route: Oral Fall Risk Assessment History of Falling: (0) No Secondary Diagnosis: (0) No Ambulatory Aid: (0) Bedrest/Nurse Assist IV Therapy: (0) No Gait: (0) Normal/Bedrest/Immobile Mental Status: (0) Oriented to Own Ability Fall Score: 0 Fall Risk Score Definition: No Risk: No action required Monitor Mode: External Monitor Mode: External US Pain Assessment Pain Scale: 0 Datetime: 01/10/2017 12:00 Fall Score: 0 Fall Risk Score Definition: No Risk: No action required Datetime: 01/10/2017 11:54 Time of Arrival: 01/24/2017 11:54 EGA: 35.6 Datetime: 01/09/2017 02:10 Stage of : OB Triage Datetime: 01/08/2017 23:58 EGA: 33.4 Datetime: 12/29/2016 14:56 Fall Score: 0 Fall Risk Score Definition: No Risk: No action required Datetime: 12/29/2016 14:55 EGA: 32.1 Datetime: 12/20/2016 18:26 EGA: 30.6 Fall Score: 0 Fall Risk Score Definition: No Risk: No action required Datetime: 12/16/2016 16:19 Fall Score: 0 Fall Risk Score Definition: No Risk: No action required Datetime: 12/16/2016 16:12 EGA: 30.2 Datetime: 12/11/2016 12:24 Fall Score: 0 Fall Risk Score Definition: No Risk: No action required Datetime: 12/11/2016 12:19 EGA: 29.4 Datetime: 11/27/2016 11:04 Fall Score: 0 Fall Risk Score Definition: No Risk: No action required Datetime: 11/27/2016 11:03 EGA: 27.4 Datetime: 11/12/2016 19:44 Fall Score: 0 Fall Risk Score Definition: No Risk: No action required Datetime: 11/11/2016 19:53 Fall Score: 20 Fall Risk Score Definition: No Risk: No action required Datetime: 11/11/2016 07:40 Fall Score: 20 Fall Risk Score Definition: No Risk: No action required Datetime: 11/10/2016 20:21 Fall Score: 20 Fall Risk Score Definition: No Risk: No action required Datetime: 11/09/2016 20:22 Fall Score: 0 Fall Risk Score Definition: No Risk: No action required Datetime: 11/09/2016 19:47 EGA: 25.1 Datetime: 11/09/2016 17:00 EGA: 25.0 Datetime: 10/30/2016 23:25 Fall Score: 0 Fall Risk Score Definition: No Risk: No action required Datetime: 10/29/2016 23:51 Fall Score: 0 Fall Risk Score Definition: No Risk: No action required Datetime: 10/29/2016 23:35 Fall Score: 0 Fall Risk Score Definition: No Risk: No action required Datetime: 10/29/2016 23:20 EGA: 23.4 Datetime: 10/19/2016 22:45 Fall Score: 0 Fall Risk Score Definition: No Risk: No action required Datetime: 10/18/2016 22:25 EGA: 21.6 Datetime: 10/09/2016 07:29 Fall Score: 0 Fall Risk Score Definition: No Risk: No action required Datetime: 10/08/2016 19:54 Fall Score: 0 Fall Risk Score Definition: No Risk: No action required Datetime: 10/08/2016 16:08 Fall Score: 0 Fall Risk Score Definition: No Risk: No action required Datetime: 10/08/2016 16:03 EGA: 20.3
--- NOTE | 2017-01-24 17:11 | DS ---
Date/Time of Note Date/Time of Note DATE: 01/24/17 TIME: 17:10 Obstetrical Discharge Record Final Diagnosis Final Diagnosis: not delivered Other Final Diagnosis S/P observation Complications Gestational Diabetes Condition on Discharge Physical Assessment Voiding: Yes Bowel Movement: Yes Breast: Soft, non-tender, Filling Fundus: Other (gravid) Abdomen and Incision: abdomen: gravid: Episiotomy: NA Calf Tenderness: No Patient Condition: Good CHIQUITA LOMBARDI MD Jan 24, 2017 17:11
--- NOTE | 2017-01-24 17:16 | PD.PPDC ---
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
[2017-01-24] MEDS ORDERED: AL HYDROX/MG HYDROX/SIMETH 30 ML CUP PO ONE (17:30)
[2017-01-24] MEDS ORDERED: metFORMIN 500 MG TAB PO SCH (21:00)
[2017-01-25] MEDS ORDERED: MULTIVIT/MIN/FOLATE/IRON/PREN TAB PO SCH (09:00)
[2017-01-25] MEDS ORDERED: FERROUS SULFATE (EC) 325 MG TAB PO SCH (09:00)
== END 2017-01-24 18:15 | disposition home or self-care (01) | DRG 778 ==
LOC: OBT 09:58 → L-D 10:03 → OBG 14:00 → OBT 14:00
PROVIDERS: ADMIT Obstetrics & Gynecology; ATTEND Obstetrics & Gynecology
DX: O60.03 Preterm labor without delivery, third trimester (principal); O24.419 Gestational diabetes mellitus in pregnancy, unspecified control; O13.3 Gestational [pregnancy-induced] hypertension without significant proteinuria, third trimester; O21.9 Vomiting of pregnancy, unspecified; Z3A.35 35 weeks gestation of pregnancy
CPT/HCPCS: 76815; 76818; 80053; 81001; 82962; 84560; 85025; 85610; 85730; J7120

== ENCOUNTER 2017-01-31 02:29 | Outpatient (CLI) | payer OTHER ==
[~2017-01-31] VITALS: Ht 157.5 cm; Wt 115.2 kg
[2017-01-31 02:57] VITALS: Ht 157.5 cm; Wt 115.2 kg
[2017-01-31 02:59] VITALS: BP 125/81; PULSE 85; RESP 18
[2017-01-31 03:23] LABS: URINE BLOOD (Dip) POC Negative (NEGATIVE)
[2017-01-31] MEDS ORDERED: AL HYDROX/MG HYDROX/SIMETH 30 ML CUP PO ONE (04:00)
--- NOTE | 2017-01-31 06:17 | PN ---
Triage Information Date/Time Weeks of Gestation Patient is 3 para 2 at 36+6 weeks of gestation who presents with a chief complaint of heartburn She reports positive movement, no leaking fluid, no contractions, no vaginal bleeding : 3 Para: 2 Diabetes: none Hypertention: none Objective Vital Signs Date Time Temp Pulse Resp B/P Pulse Ox O2 Delivery O2 Flow Rate FiO2 01/31/17 02:59 97.9 85 18 125/81 Room Air Exam NST is reactive Seat Pleasant none Results/Medications Results 24 hrs Laboratory Tests Test 01/31/17 03:26 Bedside Urine pH (LAB) 5.5 Bedside Urine Protein (LAB) Trace H Bedside Urine Glucose (UA) Negative Bedside Urine Ketones (LAB) Negative Bedside Urine Blood Negative Bedside Urine Nitrite (LAB) Negative Bedside Urine Leukocyte Esterase (L 1+ H Assessment/Plan 36+6 weeks of gestation with GERD Patient symptoms were relieved with Mylanta She was instructed to take some at home when needed Patient has a follow-up appointment with her own JEWELRY ENGRAVER in 2 days SHARMILA CARVER MD Jan 31, 2017 06:17
--- NOTE | 2017-01-31 07:35 | TRIAGE ---
OB Triage Datetime Report Generated by CPN: 01/31/2017 07:35 Datetime: 01/31/2017 05:45 Monitor Mode: External US Datetime: 01/31/2017 05:29 Monitor Mode: External US Datetime: 01/31/2017 04:30 Labor Evaluation Frequency: 2-17 Monitor Mode: External Duration (sec)2399: 50-60 Quality: Mild Pattern: Normal: <= 5 Contractions in 10 Minutes Resting Tone [place]: Relaxed Heart Rate FHR Baseline Rate: 135 Monitor Mode: External US FHR Baseline Changes: No Baseline Change Variability: Moderate 6-25 bpm Accelerations: 15X15 Decelerations: None Category: Category I Datetime: 01/31/2017 03:54 Vaginal Exam Dilatation (cms): 0.5 Effacement (%): 50 Station: -3 Exam By: Dexter Gilman RN Vaginal Bleeding: None Cervix, Consistency: Moderate Cervix, Position: Posterior Datetime: 01/31/2017 03:30 Labor Evaluation Frequency: Occassional Monitor Mode: External Duration (sec)2399: 40-60 Quality: Mild Pattern: Normal: <= 5 Contractions in 10 Minutes Resting Tone [place]: Relaxed Heart Rate FHR Baseline Rate: 125 Monitor Mode: External US FHR Baseline Changes: No Baseline Change Variability: Moderate 6-25 bpm Accelerations: 15X15 Decelerations: None Category: Category I Datetime: 01/31/2017 03:24 Stage of : OB Triage Datetime: 01/31/2017 02:51 Assessment Type: Triage Maternal Assessment Level of Consciousness: Fully Conscious DTR's/Clonus: DTRs 2+; No Clonus Headache: Denies Blurred Vision: No Respiratory Effort: Unlabored; Regular Rhythm; Equal Expansion Breath Sounds, Left: Clear and Equal Breath Sounds, Right: Clear and Equal Nausea/Vomiting: Unsure (Annotations: Pt states she vomitted in the afternoon after eating and bef ore coming to the hospital tonight.) RUQ Epigastric Pain: Denies Lower Extremities Edema: Bilateral Lower Extremities Degree: 1+ Upper Extremities Edema: None Degree: None Facial Edema: None Fall Risk Assessment History of Falling: (0) No Secondary Diagnosis: (0) No Ambulatory Aid: (0) Bedrest/Nurse Assist IV Therapy: (0) No Gait: (0) Normal/Bedrest/Immobile Mental Status: (0) Oriented to Own Ability Fall Score: 0 Fall Risk Score Definition: No Risk: No action required Datetime: 01/31/2017 02:34 Time of Arrival: 01/31/2017 02:22 EGA: 36.6 Arrived By: Wheelchair Arrived From: Home Chief Complaint: Heartburn, UC's (Annotations: Data stored by CPN on behalf of user) Movement: Present Rupture of Membranes: Denies Recent Sexual Intercouse: Denies Abdominal Trauma: Not Applicable Time Provider Notified: 01/31/2017 03:24 Provider Notified: Dr Ba Initial Plan: EFM X2, VE Datetime: 01/24/2017 16:55 Stage of : Antepartum Maternal Assessment Level of Consciousness: Fully Conscious DTR's/Clonus: DTRs 2+; No Clonus Headache: Denies Breath Sounds, Left: Clear and Equal Breath Sounds, Right: Clear and Equal Nausea/Vomiting: Denies RUQ Epigastric Pain: Denies Labor Evaluation Frequency: OCCASIONAL Monitor Mode: External Duration (sec)2399: 60 Quality: Mild Resting Tone [place]: Relaxed Heart Rate FHR Baseline Rate: 130 Monitor Mode: External US FHR Baseline Changes: No Baseline Change Variability: Moderate 6-25 bpm Accelerations: 15X15 Decelerations: None Pain Assessment Pain Scale: 2 Pain Presence: Intermittent Pain Type: Cramping Pain Location: Abdomen Pain Goal: 0 Membrane Status: Intact Datetime: 01/24/2017 15:46 Maternal Assessment Level of Consciousness: Fully Conscious DTR's/Clonus: DTRs 2+; No Clonus Headache: Denies Breath Sounds, Left: Clear and Equal Breath Sounds, Right: Clear and Equal Nausea/Vomiting: Denies RUQ Epigastric Pain: Denies Labor Evaluation Frequency: OCCASIONAL Heart Rate FHR Baseline Rate: 130 Variability: Moderate 6-25 bpm Accelerations: 15X15 Decelerations: None Category: Category I Pain Assessment Pain Scale: 2 Pain Presence: Intermittent Pain Type: Cramping Pain Location: Abdomen (Annotations: LOWER ANDBILATERAL INGUINAL ATEA) Pain Goal: 0 Membrane Status: Intact Datetime: 01/24/2017 14:46 Assessment Type: Admission Assessment Vaginal Bleeding: None Blurred Vision: No Respiratory Effort: Unlabored; Regular Rhythm; Equal Expansion Lower Extremities Edema: Bilateral Lower Extremities Degree: 1+ Upper Extremities Edema: Bilateral Upper Extremities Degree: 1+ Facial Edema: None Fall Risk Assessment History of Falling: (0) No Secondary Diagnosis: (0) No Ambulatory Aid: (0) Bedrest/Nurse Assist IV Therapy: (0) No Gait: (0) Normal/Bedrest/Immobile Mental Status: (0) Oriented to Own Ability Fall Score: 0 Fall Risk Score Definition: No Risk: No action required Datetime: 01/24/2017 10:20 Fall Score: 0 Fall Risk Score Definition: No Risk: No action required Datetime: 01/16/2017 19:41 Fall Score: 0 Fall Risk Score Definition: No Risk: No action required Datetime: 01/16/2017 08:19 Fall Score: 0 Fall Risk Score Definition: No Risk: No action required Datetime: 01/16/2017 02:53 EGA: 35.6 Initial Plan: BPP AND VALENTIN, PIH Datetime: 01/16/2017 00:22 EGA: 34.5 Fall Score: 0 Fall Risk Score Definition: No Risk: No action required Datetime: 01/10/2017 12:00 Fall Score: 0 Fall Risk Score Definition: No Risk: No action required Datetime: 01/10/2017 11:54 EGA: 35.6 Datetime: 01/08/2017 23:58 EGA: 33.4 Datetime: 12/29/2016 14:56 Fall Score: 0 Fall Risk Score Definition: No Risk: No action required Datetime: 12/29/2016 14:55 EGA: 32.1 Datetime: 12/20/2016 18:26 EGA: 30.6 Fall Score: 0 Fall Risk Score Definition: No Risk: No action required Datetime: 12/16/2016 16:19 Fall Score: 0 Fall Risk Score Definition: No Risk: No action required Datetime: 12/16/2016 16:12 EGA: 30.2 Datetime: 12/11/2016 12:24 Fall Score: 0 Fall Risk Score Definition: No Risk: No action required Datetime: 12/11/2016 12:19 EGA: 29.4 Datetime: 11/27/2016 11:04 Fall Score: 0 Fall Risk Score Definition: No Risk: No action required Datetime: 11/27/2016 11:03 EGA: 27.4 Datetime: 11/12/2016 19:44 Fall Score: 0 Fall Risk Score Definition: No Risk: No action required Datetime: 11/11/2016 19:53 Fall Score: 20 Fall Risk Score Definition: No Risk: No action required Datetime: 11/11/2016 07:40 Fall Score: 20 Fall Risk Score Definition: No Risk: No action required Datetime: 11/10/2016 20:21 Fall Score: 20 Fall Risk Score Definition: No Risk: No action required Datetime: 11/09/2016 20:22 Fall Score: 0 Fall Risk Score Definition: No Risk: No action required Datetime: 11/09/2016 19:47 EGA: 25.1 Datetime: 11/09/2016 17:00 EGA: 25.0 Datetime: 10/30/2016 23:25 Fall Score: 0 Fall Risk Score Definition: No Risk: No action required Datetime: 10/29/2016 23:51 Fall Score: 0 Fall Risk Score Definition: No Risk: No action required Datetime: 10/29/2016 23:35 Fall Score: 0 Fall Risk Score Definition: No Risk: No action required Datetime: 10/29/2016 23:20 EGA: 23.4 Datetime: 10/19/2016 22:45 Fall Score: 0 Fall Risk Score Definition: No Risk: No action required Datetime: 10/18/2016 22:25 EGA: 21.6 Datetime: 10/09/2016 07:29 Fall Score: 0 Fall Risk Score Definition: No Risk: No action required Datetime: 10/08/2016 19:54 Fall Score: 0 Fall Risk Score Definition: No Risk: No action required Datetime: 10/08/2016 16:08 Fall Score: 0 Fall Risk Score Definition: No Risk: No action required Datetime: 10/08/2016 16:03 EGA: 20.3
== END 2017-01-31 06:05 | disposition home or self-care (01) ==
LOC: OBT 02:29 → L-D 02:31 → OBT 06:05
PROVIDERS: ATTEND Obstetrics & Gynecology
DX: O26.893 Other specified pregnancy related conditions, third trimester (principal); K21.9 Gastro-esophageal reflux disease without esophagitis; Z3A.36 36 weeks gestation of pregnancy
CPT/HCPCS: 81003; Z7500; Z7610; G0463

== ENCOUNTER 2017-02-02 16:04 | Outpatient (CLI) | payer OTHER ==
[~2017-02-02] VITALS: Ht 154.9 cm; Wt 117.9 kg
[2017-02-02 17:15] VITALS: Ht 154.9 cm; Wt 117.9 kg
[2017-02-02 17:17] VITALS: BP 111/66; PULSE 78
--- NOTE | 2017-02-02 17:52 | RADRPT ---
PROCEDURE: US left lower extremity veins. CLINICAL INDICATION: Left leg pain and swelling. TECHNIQUE: Multiple longitudinal and transverse images of the left lower extremity veins were obta ined with kurtz scale and color Doppler imaging. The common femoral vein, femoral vein, and popliteal vein were evaluated. 2D grayscale measurements with compression sonography, pulsed Doppler, color D oppler, and pulsed Doppler with augmentation. COMPARISON: No prior studies are available for comparison. FINDINGS: The left common femoral, femoral and popliteal veins are normally compressible throughout. Color fl ow demonstrates normal filling of the vessels. Normal waveforms are visualized and there is normal response to augmentation. IMPRESSION: 1. No evidence of deep vein thrombosis involving the left lower extremity. RPTAT: QQ .Christiano Gordon MD, MD Date Time Electronically viewed and signed by .Christiano Gordon MD, on 02/02/2017 17:52 .R/
--- NOTE | 2017-02-02 17:53 | RADRPT ---
PROCEDURE: US biophysical profile. CLINICAL INDICATION: Gestational diabetes. TECHNIQUE: Multiple sonographic images of the uterus were obtained. The images were revi ewed on a PACS workstation. COMPARISON: 01/24/2017. FINDINGS: There is a single live intrauterine gestation. heart rate is 146 beats per minute. The position is cephalic. The placenta is fundal grade II with no abruption or previa. The VALENTIN is 26.2 cm. (Normal = 5-20 cm.) Breathing Movement: 2 Gross Body Movement: 2 Tone: 2 Qualitative Amniotic Fluid Volume: 2 TOTAL: 8 IMPRESSION: 1. The biophysical score is 8/8. RPTAT: QQ .Christiano Gordon MD, MD Date Time Electronically viewed and signed by .Christiano Gordon MD, on 02/02/2017 17:53 .R/
--- NOTE | 2017-02-02 18:05 | QN ---
Documentation Comment 26 y/o female at 37.1 weeks here for C/O leg swelling and antepartum testing for DM NST R BPP 03/30 if Doppler study of venous floor is negative will follow as outpatient CHIQUITA LOMBARDI MD Feb 02, 2017 18:05
== END 2017-02-02 18:30 | disposition home or self-care (01) ==
LOC: OBT 16:04 → L-D 16:04 → OBT 18:30
PROVIDERS: ATTEND Obstetrics & Gynecology
DX: O26.893 Other specified pregnancy related conditions, third trimester (principal); Z3A.37 37 weeks gestation of pregnancy
CPT/HCPCS: 76818; 82962; 93971; Z7500; G0463

== ENCOUNTER 2017-02-03 19:31 | Outpatient (CLI) | payer OTHER ==
[~2017-02-03] VITALS: Ht 154.9 cm; Wt 117.3 kg
[2017-02-03 20:15] VITALS: BP 122/85; PULSE 90; RESP 18
[2017-02-03 20:25] LABS: URINE BLOOD (Dip) POC Negative (NEGATIVE)
--- NOTE | 2017-02-03 22:29 | RADRPT ---
PROCEDURE: Ultrasound examination of bilateral lower extremities veins with Doppler. CLINICAL INDICATION: Leg pain and swelling. TECHNIQUE: Multiple sonographic images of bilateral lower extremity venous systems were performed with kurtz scale and color Doppler. COMPARISON: 02/02/2017. FINDINGS: Bilateral common femoral, superficial femoral and popliteal veins demonstrate normal color flow, wav eforms, compression and response to augmentation. There is no evidence of deep venous thrombosis. IMPRESSION: No evidence of deep venous thrombosis within bilateral lower extremities. .Ace Madison MD, Date Time Electronically viewed and signed by .Ace Madison MD, on 02/03/2017 22:29 .T/
--- NOTE | 2017-02-04 00:13 | RADRPT ---
PROCEDURE: ULTRASOUND BIOPHYSICAL PROFILE CLINICAL INDICATION: 26-year-old female with decelerations for viability. TECHNIQUE: Multiple sonographic images were obtained in order to perform a biophysical profile The images were reviewed on a PACS workstation. COMPARISON: None. FINDINGS: There is a single viable intrauterine gestation. There is a vertex presentation. Cardiac activity i s present at 122 beats per minute. The placenta is fundal. The results of the biophysical profile a re as follows: breathing movement = 2/2 Gross body movement = 2/2 tone = 2/2 Qualitative amniotic fluid volume = 2/2 Amniotic fluid index equals 25.4 cm. This yields a biophysical profile score of 8/8. IMPRESSION: 1. Biophysical profile score is 8/8. 2. Polyhydramnios with amniotic fluid index equal 25.4 cm. .Michel Quiñonez MD, Date Time Electronically viewed and signed by .Michel Quiñonez MD, on 02/04/2017 00:13 .M/
--- NOTE | 2017-02-04 00:49 | PN ---
Triage Information Date/Time February 03, 2017 Late entry note Weeks of Gestation 37 weeks and 2 days : 3 Para: 2 Diabetes: none Hypertention: none Additional information 26-year-old with IUP at 37 weeks and 2 days with history of 2 she presented to triage with complaint of swelling of legs in both sides. She had main in triage couple of days ago with complaint of swelling of left leg and had the Doppler on the left side that was negative for DVT. She reports no swelling of both lower extremity. She had a history of preeclampsia in prior . Her blood pressure had been normal. She denies any headache, blurred vision or epigastric pain. Antepartum course was complicated by history of GDM A2 during . She had been on metformin throughout the . Patient currently has been scheduled for repeat at 39 weeks. She denies any other complaint. Objective Vital Signs Date Time Temp Pulse Resp B/P Pulse Ox O2 Delivery O2 Flow Rate FiO2 02/03/17 20:15 97.9 90 18 122/85 Room Air Exam General appearance: Alert and oriented 4 patient does not appear to be in any acute distress. Patient is obese Abdomen: Gravid, soft, no rebound tenderness, no tenderness, no guarding, no rigidity. Extremities: No calf tenderness, 2+ ankle edema symmetric. No cords palpable, negative Homans sign NST: Category 1, some variability is noted Doppler of the lower extremities both sides negative Blood pressures during observation noted to be normal BPP: 8/8 Results/Medications Results 24 hrs Laboratory Tests Test 02/03/17 20:28 Bedside Urine pH (LAB) 5.5 Bedside Urine Protein (LAB) Negative Bedside Urine Glucose (UA) Negative Bedside Urine Ketones (LAB) Trace H Bedside Urine Blood Negative Bedside Urine Nitrite (LAB) Negative Bedside Urine Leukocyte Esterase (L Negative Imaging Results PROCEDURE: ULTRASOUND BIOPHYSICAL PROFILE CLINICAL INDICATION: 26-year-old female with decelerations for viability. TECHNIQUE: Multiple sonographic images were obtained in order to perform a biophysical profile The images were reviewed on a PACS workstation. COMPARISON: None. FINDINGS: There is a single viable intrauterine gestation. There is a vertex presentation. Cardiac activity is present at 122 beats per minute. The placenta is fundal. The results of the biophysical profile are as follows: breathing movement = 2/2 Gross body movement = 2/2 tone = 2/2 Qualitative amniotic fluid volume = 2/2 Amniotic fluid index equals 25.4 cm. This yields a biophysical profile score of 8/8. IMPRESSION: 1. Biophysical profile score is 8/8. 2. Polyhydramnios with amniotic fluid index equal 25.4 cm. PROCEDURE: Ultrasound examination of bilateral lower extremities veins with Doppler. CLINICAL INDICATION: Leg pain and swelling. TECHNIQUE: Multiple sonographic images of bilateral lower extremity venous systems were performed with kurtz scale and color Doppler. COMPARISON: 02/02/2017. FINDINGS: Bilateral common femoral, superficial femoral and popliteal veins demonstrate normal color flow, waveforms, compression and response to augmentation. There is no evidence of deep venous thrombosis. IMPRESSION: No evidence of deep venous thrombosis within bilateral lower extremities. Assessment/Plan IUP at 37 weeks Bilateral lower extremity edema due to No evidence of DVT Maternal obesity complicating History of 2 Scheduled for repeat at 39 weeks testing reassuring DC home Follow-up with OB clinic within 24-48 hours Labor precaution and kick count discussed Proceed with repeat if undelivered by 39 weeks by repeat section Return to triage as needed any other concern Patient verbalized understanding plan of care and agreed to comply with instructions. GREGG LEACH MD Feb 04, 2017 00:49
--- NOTE | 2017-02-04 01:18 | TRIAGE ---
OB Triage Datetime Report Generated by CPN: 02/04/2017 01:18 Datetime: 02/03/2017 21:28 Labor Evaluation Frequency: 3-8 Monitor Mode: External Duration (sec)2399: 30-50 Quality: Mild Pattern: Normal: <= 5 Contractions in 10 Minutes Resting Tone [place]: Relaxed Heart Rate FHR Baseline Rate: 140 Monitor Mode: External US Datetime: 02/03/2017 20:55 Stage of : OB Triage Monitor Mode: External Quality: Mild Pattern: Normal: <= 5 Contractions in 10 Minutes Resting Tone [place]: Relaxed Heart Rate FHR Baseline Rate: 145 Monitor Mode: External US FHR Baseline Changes: No Baseline Change Variability: Moderate 6-25 bpm Accelerations: 15X15 Decelerations: None Category: Category I Datetime: 02/03/2017 19:59 Time of Arrival: 02/03/2017 19:30 EGA: 37.2 Arrived By: Ambulatory Arrived From: Home Chief Complaint: hx c/s x2 c/o increasing pedal edema and lower extremities and cramping Movement: Present Contractions: Occasional Time Contractions Began: 02/03/2017 19:15 Rupture of Membranes: Denies Vaginal Bleeding: None Vaginal Discharge: Present Recent Sexual Intercouse: Denies Abdominal Trauma: Not Applicable Patient Complaints: Cramping; Dependent Edema Time Provider Notified: 02/03/2017 20:55 Provider Notified: Dr Kaplan Initial Plan: EFM, venous dopple,UA Datetime: 02/03/2017 19:52 Stage of : OB Triage Maternal Assessment Level of Consciousness: Fully Conscious DTR's/Clonus: DTRs 2+; No Clonus Headache: Denies Blurred Vision: No Respiratory Effort: Unlabored Nausea/Vomiting: Denies RUQ Epigastric Pain: Denies Facial Edema: None Labor Evaluation Frequency: placed Monitor Mode: External Resting Tone [place]: Relaxed Monitor Mode: External US Comments: FHT 150 Datetime: 02/02/2017 18:21 Stage of : OB Triage Datetime: 02/02/2017 18:20 Bedside Blood Glucose: 107 Datetime: 02/02/2017 18:11 Labor Evaluation Frequency: OCCAS Monitor Mode: External Duration (sec)2399: 50-70 Resting Tone [place]: Relaxed Heart Rate FHR Baseline Rate: 135 Monitor Mode: External US Variability: Moderate 6-25 bpm Accelerations: 10X10 Decelerations: None Category: Category I Pain Assessment Pain Scale: 0 Pain Presence: None/Denies Pain Type: N/A Pain Goal: 3 Pain Relief Measures: Comfort Measures Datetime: 02/02/2017 17:20 Stage of : OB Triage Assessment Type: Triage Maternal Assessment Level of Consciousness: Fully Conscious DTR's/Clonus: DTRs 2+; No Clonus Headache: Denies Blurred Vision: No Respiratory Effort: Unlabored; Regular Rhythm; Equal Expansion Breath Sounds, Left: Clear and Equal Breath Sounds, Right: Clear and Equal Nausea/Vomiting: Denies RUQ Epigastric Pain: Denies Facial Edema: None Temperature Route: Axillary Fall Risk Assessment History of Falling: (0) No Secondary Diagnosis: (0) No Ambulatory Aid: (0) Bedrest/Nurse Assist IV Therapy: (0) No Gait: (0) Normal/Bedrest/Immobile Mental Status: (0) Oriented to Own Ability Fall Score: 0 Fall Risk Score Definition: No Risk: No action required Labor Evaluation Frequency: OCCAS Monitor Mode: External Duration (sec)2399: 60-70 Quality: Mild Pattern: Normal: <= 5 Contractions in 10 Minutes Resting Tone [place]: Relaxed Heart Rate FHR Baseline Rate: 145 Monitor Mode: External US Variability: Moderate 6-25 bpm Accelerations: 10X10 Decelerations: None Category: Category I Pain Assessment Pain Scale: 0 Pain Presence: None/Denies Pain Type: N/A Pain Goal: 3 Pain Relief Measures: Comfort Measures Datetime: 02/02/2017 17:18 Time of Arrival: 02/02/2017 16:00 EGA: 37.1 Arrived By: Ambulatory Arrived From: Home Chief Complaint: C/O SWELLING TO LEFT LEG, DENIES UC'S, LEAKING OF FLUID OR BLEEDING Movement: Present Contractions: Denies/Absent Rupture of Membranes: Denies Vaginal Bleeding: None Vaginal Discharge: Denies Recent Sexual Intercouse: Denies Abdominal Trauma: Not Applicable Patient Complaints: None Time Provider Notified: 02/02/2017 17:00 Provider Notified: CARLOS Initial Plan: MONITOR, DOPPLER STUDIES, BPP/VALENTIN Datetime: 01/31/2017 02:51 Fall Score: 0 Fall Risk Score Definition: No Risk: No action required Datetime: 01/31/2017 02:34 EGA: 36.6 Datetime: 01/24/2017 14:46 Fall Score: 0 Fall Risk Score Definition: No Risk: No action required Datetime: 01/24/2017 10:20 Fall Score: 0 Fall Risk Score Definition: No Risk: No action required Datetime: 01/16/2017 19:41 Fall Score: 0 Fall Risk Score Definition: No Risk: No action required Datetime: 01/16/2017 08:19 Fall Score: 0 Fall Risk Score Definition: No Risk: No action required Datetime: 01/16/2017 02:53 EGA: 35.6 Datetime: 01/16/2017 00:22 EGA: 34.5 Fall Score: 0 Fall Risk Score Definition: No Risk: No action required Datetime: 01/10/2017 12:00 Fall Score: 0 Fall Risk Score Definition: No Risk: No action required Datetime: 01/10/2017 11:54 EGA: 35.6 Datetime: 01/08/2017 23:58 EGA: 33.4 Datetime: 12/29/2016 14:56 Fall Score: 0 Fall Risk Score Definition: No Risk: No action required Datetime: 12/29/2016 14:55 EGA: 32.1 Datetime: 12/20/2016 18:26 EGA: 30.6 Fall Score: 0 Fall Risk Score Definition: No Risk: No action required Datetime: 12/16/2016 16:19 Fall Score: 0 Fall Risk Score Definition: No Risk: No action required Datetime: 12/16/2016 16:12 EGA: 30.2 Datetime: 12/11/2016 12:24 Fall Score: 0 Fall Risk Score Definition: No Risk: No action required Datetime: 12/11/2016 12:19 EGA: 29.4 Datetime: 11/27/2016 11:04 Fall Score: 0 Fall Risk Score Definition: No Risk: No action required Datetime: 11/27/2016 11:03 EGA: 27.4 Datetime: 11/12/2016 19:44 Fall Score: 0 Fall Risk Score Definition: No Risk: No action required Datetime: 11/11/2016 19:53 Fall Score: 20 Fall Risk Score Definition: No Risk: No action required Datetime: 11/11/2016 07:40 Fall Score: 20 Fall Risk Score Definition: No Risk: No action required Datetime: 11/10/2016 20:21 Fall Score: 20 Fall Risk Score Definition: No Risk: No action required Datetime: 11/09/2016 20:22 Fall Score: 0 Fall Risk Score Definition: No Risk: No action required Datetime: 11/09/2016 19:47 EGA: 25.1 Datetime: 11/09/2016 17:00 EGA: 25.0 Datetime: 10/30/2016 23:25 Fall Score: 0 Fall Risk Score Definition: No Risk: No action required Datetime: 10/29/2016 23:51 Fall Score: 0 Fall Risk Score Definition: No Risk: No action required Datetime: 10/29/2016 23:35 Fall Score: 0 Fall Risk Score Definition: No Risk: No action required Datetime: 10/29/2016 23:20 EGA: 23.4 Datetime: 10/19/2016 22:45 Fall Score: 0 Fall Risk Score Definition: No Risk: No action required Datetime: 10/18/2016 22:25 EGA: 21.6 Datetime: 10/09/2016 07:29 Fall Score: 0 Fall Risk Score Definition: No Risk: No action required Datetime: 10/08/2016 19:54 Fall Score: 0 Fall Risk Score Definition: No Risk: No action required Datetime: 10/08/2016 16:08 Fall Score: 0 Fall Risk Score Definition: No Risk: No action required Datetime: 10/08/2016 16:03 EGA: 20.3
== END 2017-02-03 23:45 | disposition home or self-care (01) ==
LOC: OBT 19:31 → L-D 19:31 → OBT 23:45
PROVIDERS: ATTEND Obstetrics & Gynecology
DX: O26.893 Other specified pregnancy related conditions, third trimester (principal); M79.89 Other specified soft tissue disorders; R60.0 Localized edema
CPT/HCPCS: 76818; 81003; 93970; G0463

== ENCOUNTER 2017-02-08 16:02 | Outpatient (CLI) | payer OTHER ==
[~2017-02-08] VITALS: Ht 154.9 cm; Wt 118.3 kg
[2017-02-08 16:22] VITALS: Ht 154.9 cm; Wt 118.3 kg
[2017-02-08 16:23] VITALS: BP 124/75; PULSE 109; RESP 18
--- NOTE | 2017-02-08 17:49 | RADRPT ---
PROCEDURE: US biophysical profile. CLINICAL INDICATION: Contractions. Decreased motion. TECHNIQUE: Multiple sonographic images of the uterus were obtained. The images were revi ewed on a PACS workstation. COMPARISON: 02/03/2017. FINDINGS: There is a single live intrauterine gestation. heart rate is 139 beats per minute. The position is cephalic. The placenta is fundal grade III with no abruption or previa. The VALENTIN is 14.2 cm. (Normal = 5-20 cm.) Breathing Movement: 2 Gross Body Movement: 2 Tone: 2 Qualitative Amniotic Fluid Volume: 2 TOTAL: 8 IMPRESSION: 1. The biophysical score is 8/8. RPTAT: QQ .Christiano Gordon MD, MD Date Time Electronically viewed and signed by .Christiano Gordon MD, on 02/08/2017 17:49 .R/
--- NOTE | 2017-02-08 18:14 | RADRPT ---
PROCEDURE: US Lower extremity Venous. CLINICAL INDICATION: DVT TECHNIQUE: Multiple sonographic images of the bilateral lower extremity deep venous system was obt ained utilizing grayscale, color-flow, compressive sonography and doppler imaging with augmentation. The images were reviewed on a PACS workstation. COMPARISON: February 03, 2017 FINDINGS: There is normal compressibility and flow within the bilateral common femoral, deep femoral, superfic ial femoral and popliteal veins. The deep veins the calf were incompletely visualized. IMPRESSION: No sonographic evidence for deep venous thrombosis in the bilateral lower extremities. Physician Debby Date Time Electronically viewed and signed by Physician Debby on 02/08/2017 18:13 ML/
--- NOTE | 2017-02-08 18:50 | PN ---
Triage Information Date/Time here C/O decreased FM has numerous visits for same or other problems requests repeat C/S scheduled for 02/15 Weeks of Gestation 38 : 3 Para: 2 Diabetes: gestational Diabetes management: diet controlled, oral agent Hypertention: none Objective Vital Signs Date Time Temp Pulse Resp B/P Pulse Ox O2 Delivery O2 Flow Rate FiO2 02/08/17 16:23 98.2 109 18 124/75 94 Room Air Heart Rate: 140's Heart Rate Comments FHTs are R and BPP */S Exam closed Results/Medications Medications metformin Imaging Results BPP */* No evidence of DVTs by Doppler Study of venous flow of both lower extremities Assessment/Plan follow in 3 days as outpatient CHIQUITA LOMBARDI MD Feb 08, 2017 18:50
--- NOTE | 2017-02-08 19:26 | TRIAGE ---
OB Triage Datetime Report Generated by CPN: 02/08/2017 19:25 Datetime: 02/08/2017 18:42 Labor Evaluation Frequency: OCC Monitor Mode: External Duration (sec)2399: 60-120 Quality: Mild Pattern: Normal: <= 5 Contractions in 10 Minutes Resting Tone [place]: Relaxed Contraction Comments: +IRIRTABILITIES Heart Rate FHR Baseline Rate: 135 FHR Baseline Changes: No Baseline Change Variability: Moderate 6-25 bpm Accelerations: 15X15 Decelerations: None Category: Category I Datetime: 02/08/2017 16:26 Stage of : OB Triage Maternal Assessment Level of Consciousness: Fully Conscious DTR's/Clonus: DTRs 2+; No Clonus Headache: Denies Blurred Vision: No Respiratory Effort: Unlabored; Regular Rhythm; Equal Expansion Breath Sounds, Left: Clear and Equal Breath Sounds, Right: Clear and Equal Nausea/Vomiting: Denies RUQ Epigastric Pain: Denies Lower Extremities Edema: Bilateral Lower Extremities Degree: 3+ Upper Extremities Edema: None Degree: None Facial Edema: None Temperature Route: Axillary Bedside Blood Glucose: 101 (Annotations: blood sugar at 1430) Fall Risk Assessment History of Falling: (0) No Secondary Diagnosis: (0) No Ambulatory Aid: (0) Bedrest/Nurse Assist IV Therapy: (0) No Gait: (0) Normal/Bedrest/Immobile Mental Status: (0) Oriented to Own Ability Fall Score: 0 Fall Risk Score Definition: No Risk: No action required Monitor Mode: External Heart Rate FHR Baseline Rate: 140 Monitor Mode: External US Pain Assessment Pain Scale: 0 Datetime: 02/08/2017 16:24 Time of Arrival: 02/08/2017 16:07 EGA: 38.0 Arrived By: Ambulatory Arrived From: Home Chief Complaint: swelling on bioth feet and decreased movements Movement: Decreased Rupture of Membranes: Denies Vaginal Bleeding: None Vaginal Discharge: Denies Recent Sexual Intercouse: Denies Abdominal Trauma: Not Applicable Patient Complaints: Other Time Provider Notified: 02/08/2017 16:47 Provider Notified: DR. GONZALEZ Initial Plan: efm, BPP, DOPPLER VENOUS STUDY Datetime: 02/03/2017 23:36 Stage of : OB Triage Heart Rate FHR Baseline Rate: 130 Monitor Mode: External US FHR Baseline Changes: No Baseline Change Variability: Moderate 6-25 bpm Datetime: 02/03/2017 22:53 Stage of : OB Triage Labor Evaluation Frequency: 2-10 Monitor Mode: External Quality: Mild Pattern: Normal: <= 5 Contractions in 10 Minutes Resting Tone [place]: Relaxed Heart Rate FHR Baseline Rate: 130 Monitor Mode: External US FHR Baseline Changes: No Baseline Change Variability: Moderate 6-25 bpm Accelerations: 15X15 Decelerations: Variable Category: Category II Datetime: 02/03/2017 22:30 Stage of : OB Triage Labor Evaluation Frequency: 2-10 Monitor Mode: External Duration (sec)2399: 20-50 Quality: Mild Pattern: Normal: <= 5 Contractions in 10 Minutes Resting Tone [place]: Relaxed Heart Rate FHR Baseline Rate: 135 Monitor Mode: External US FHR Baseline Changes: No Baseline Change Variability: Moderate 6-25 bpm Accelerations: 15X15 Decelerations: None Category: Category I Datetime: 02/03/2017 19:59 EGA: 37.2 Datetime: 02/02/2017 17:20 Fall Score: 0 Fall Risk Score Definition: No Risk: No action required Datetime: 02/02/2017 17:18 EGA: 37.1 Datetime: 01/31/2017 02:51 Fall Score: 0 Fall Risk Score Definition: No Risk: No action required Datetime: 01/31/2017 02:34 EGA: 36.6 Datetime: 01/24/2017 14:46 Fall Score: 0 Fall Risk Score Definition: No Risk: No action required Datetime: 01/24/2017 10:20 Fall Score: 0 Fall Risk Score Definition: No Risk: No action required Datetime: 01/16/2017 19:41 Fall Score: 0 Fall Risk Score Definition: No Risk: No action required Datetime: 01/16/2017 08:19 Fall Score: 0 Fall Risk Score Definition: No Risk: No action required Datetime: 01/16/2017 02:53 EGA: 35.6 Datetime: 01/16/2017 00:22 EGA: 34.5 Fall Score: 0 Fall Risk Score Definition: No Risk: No action required Datetime: 01/10/2017 12:00 Fall Score: 0 Fall Risk Score Definition: No Risk: No action required Datetime: 01/10/2017 11:54 EGA: 35.6 Datetime: 01/08/2017 23:58 EGA: 33.4 Datetime: 12/29/2016 14:56 Fall Score: 0 Fall Risk Score Definition: No Risk: No action required Datetime: 12/29/2016 14:55 EGA: 32.1 Datetime: 12/20/2016 18:26 EGA: 30.6 Fall Score: 0 Fall Risk Score Definition: No Risk: No action required Datetime: 12/16/2016 16:19 Fall Score: 0 Fall Risk Score Definition: No Risk: No action required Datetime: 12/16/2016 16:12 EGA: 30.2 Datetime: 12/11/2016 12:24 Fall Score: 0 Fall Risk Score Definition: No Risk: No action required Datetime: 12/11/2016 12:19 EGA: 29.4 Datetime: 11/27/2016 11:04 Fall Score: 0 Fall Risk Score Definition: No Risk: No action required Datetime: 11/27/2016 11:03 EGA: 27.4 Datetime: 11/12/2016 19:44 Fall Score: 0 Fall Risk Score Definition: No Risk: No action required Datetime: 11/11/2016 19:53 Fall Score: 20 Fall Risk Score Definition: No Risk: No action required Datetime: 11/11/2016 07:40 Fall Score: 20 Fall Risk Score Definition: No Risk: No action required Datetime: 11/10/2016 20:21 Fall Score: 20 Fall Risk Score Definition: No Risk: No action required Datetime: 11/09/2016 20:22 Fall Score: 0 Fall Risk Score Definition: No Risk: No action required Datetime: 11/09/2016 19:47 EGA: 25.1 Datetime: 11/09/2016 17:00 EGA: 25.0 Datetime: 10/30/2016 23:25 Fall Score: 0 Fall Risk Score Definition: No Risk: No action required Datetime: 10/29/2016 23:51 Fall Score: 0 Fall Risk Score Definition: No Risk: No action required Datetime: 10/29/2016 23:35 Fall Score: 0 Fall Risk Score Definition: No Risk: No action required Datetime: 10/29/2016 23:20 EGA: 23.4 Datetime: 10/19/2016 22:45 Fall Score: 0 Fall Risk Score Definition: No Risk: No action required Datetime: 10/18/2016 22:25 EGA: 21.6 Datetime: 10/09/2016 07:29 Fall Score: 0 Fall Risk Score Definition: No Risk: No action required Datetime: 10/08/2016 19:54 Fall Score: 0 Fall Risk Score Definition: No Risk: No action required Datetime: 10/08/2016 16:08 Fall Score: 0 Fall Risk Score Definition: No Risk: No action required Datetime: 10/08/2016 16:03 EGA: 20.3
== END 2017-02-08 19:19 | disposition home or self-care (01) ==
LOC: OBT 16:02 → L-D 16:02 → OBT 19:19
PROVIDERS: ATTEND Obstetrics & Gynecology
DX: O36.8130 Decreased fetal movements, third trimester, not applicable or unspecified (principal); O24.410 Gestational diabetes mellitus in pregnancy, diet controlled; Z3A.38 38 weeks gestation of pregnancy
CPT/HCPCS: 76818; 93970

== ENCOUNTER 2017-02-12 10:22 | Outpatient (CLI) | payer OTHER ==
[~2017-02-12] VITALS: Ht 154.9 cm; Wt 118.0 kg
[2017-02-12 10:29] VITALS: BP 119/72; PULSE 102; RESP 16; Ht 154.9 cm; Wt 118.0 kg
--- NOTE | 2017-02-12 12:24 | RADRPT ---
PROCEDURE: Biophysical profile CLINICAL INDICATION: distress, labor. TECHNIQUE: Color and kurtz-scale ultrasound images of an intrauterine gestation were obtained. COMPARISON: November 27, 2016 FINDINGS: A single live intrauterine gestation is identified in to position with an estimated heart rate of 157 beats per minute. The placenta is located posteriorly. The cervix is obscured by head shad ows. No evidence of abruption identified. VALENTIN is 14.9 cm. movement 2/2. tone 2/2. breathing movement 2/2. Qualitative AFV 2/2 Total biophysical profile 03/30 IMPRESSION: 03/30 biophysical profile. RPTAT: AA .Henry Dominguez MD, MD Date Time Electronically viewed and signed by .Henry Dominguez MD, on 02/12/2017 12:24 .P/
--- NOTE | 2017-02-12 12:34 | TRIAGE ---
OB Triage Datetime Report Generated by CPN: 02/12/2017 12:34 Datetime: 02/12/2017 11:57 Labor Evaluation Frequency: 2-20 Monitor Mode: External Duration (sec)2399: 50-60 Quality: Mild Pattern: Normal: <= 5 Contractions in 10 Minutes Resting Tone [place]: Relaxed Heart Rate FHR Baseline Rate: 135 Monitor Mode: External US Variability: Moderate 6-25 bpm Accelerations: 15X15 Decelerations: None Category: Category I Pain Presence: None/Denies Pain Type: N/A Datetime: 02/12/2017 11:01 Labor Evaluation Frequency: x3 Monitor Mode: Palpation Duration (sec)2399: 40-50 Quality: Mild Pattern: Normal: <= 5 Contractions in 10 Minutes Resting Tone [place]: Relaxed Heart Rate FHR Baseline Rate: 145 Monitor Mode: External US Variability: Moderate 6-25 bpm Accelerations: 15X15 Decelerations: None Category: Category I Pain Assessment Pain Scale: 0 Pain Presence: None/Denies Pain Type: N/A Pain Location: Abdomen Pain Goal: 3 Datetime: 02/12/2017 10:43 Vaginal Exam Dilatation (cms): 1.0 Effacement (%): 50 Station: -3 Exam By: wliu Datetime: 02/12/2017 10:40 Assessment Type: Triage Maternal Assessment Level of Consciousness: Fully Conscious DTR's/Clonus: DTRs 2+; No Clonus Headache: Denies Blurred Vision: No Respiratory Effort: Unlabored; Regular Rhythm; Equal Expansion Breath Sounds, Left: Clear and Equal Breath Sounds, Right: Clear and Equal Nausea/Vomiting: Denies RUQ Epigastric Pain: Denies Lower Extremities Edema: Bilateral Lower Extremities Degree: Pitting Upper Extremities Edema: None Degree: None Facial Edema: None Fall Risk Assessment History of Falling: (0) No Secondary Diagnosis: (0) No Ambulatory Aid: (0) Bedrest/Nurse Assist IV Therapy: (0) No Gait: (0) Normal/Bedrest/Immobile Mental Status: (0) Oriented to Own Ability Fall Score: 0 Fall Risk Score Definition: No Risk: No action required Datetime: 02/12/2017 10:30 Time of Arrival: 02/12/2017 10:20 EGA: 38.4 Arrived By: Wheelchair Arrived From: Home Chief Complaint: pt. came to hospital c/o lost mucus plog yesterday afternoon, uc since midnight, x60-89kpar apart, pain level 5/10, also have diarreah today, went to bathroom 5 times Movement: Present Contractions: Irregular Rupture of Membranes: Denies Vaginal Bleeding: None Vaginal Discharge: Denies Recent Sexual Intercouse: Denies Abdominal Trauma: Not Applicable Patient Complaints: Contractions Time Provider Notified: 02/12/2017 11:07 Provider Notified: [email or web address] Initial Plan: r/o labor Datetime: 02/08/2017 16:26 Fall Score: 0 Fall Risk Score Definition: No Risk: No action required Datetime: 02/08/2017 16:24 EGA: 38.0 Datetime: 02/03/2017 19:59 EGA: 37.2 Datetime: 02/02/2017 17:20 Fall Score: 0 Fall Risk Score Definition: No Risk: No action required Datetime: 02/02/2017 17:18 EGA: 37.1 Datetime: 01/31/2017 02:51 Fall Score: 0 Fall Risk Score Definition: No Risk: No action required Datetime: 01/31/2017 02:34 EGA: 36.6 Datetime: 01/24/2017 14:46 Fall Score: 0 Fall Risk Score Definition: No Risk: No action required Datetime: 01/24/2017 10:20 Fall Score: 0 Fall Risk Score Definition: No Risk: No action required Datetime: 01/16/2017 19:41 Fall Score: 0 Fall Risk Score Definition: No Risk: No action required Datetime: 01/16/2017 08:19 Fall Score: 0 Fall Risk Score Definition: No Risk: No action required Datetime: 01/16/2017 02:53 EGA: 35.6 Datetime: 01/16/2017 00:22 EGA: 34.5 Fall Score: 0 Fall Risk Score Definition: No Risk: No action required Datetime: 01/10/2017 12:00 Fall Score: 0 Fall Risk Score Definition: No Risk: No action required Datetime: 01/10/2017 11:54 EGA: 35.6 Datetime: 01/08/2017 23:58 EGA: 33.4 Datetime: 12/29/2016 14:56 Fall Score: 0 Fall Risk Score Definition: No Risk: No action required Datetime: 12/29/2016 14:55 EGA: 32.1 Datetime: 12/20/2016 18:26 EGA: 30.6 Fall Score: 0 Fall Risk Score Definition: No Risk: No action required Datetime: 12/16/2016 16:19 Fall Score: 0 Fall Risk Score Definition: No Risk: No action required Datetime: 12/16/2016 16:12 EGA: 30.2 Datetime: 12/11/2016 12:24 Fall Score: 0 Fall Risk Score Definition: No Risk: No action required Datetime: 12/11/2016 12:19 EGA: 29.4 Datetime: 11/27/2016 11:04 Fall Score: 0 Fall Risk Score Definition: No Risk: No action required Datetime: 11/27/2016 11:03 EGA: 27.4 Datetime: 11/12/2016 19:44 Fall Score: 0 Fall Risk Score Definition: No Risk: No action required Datetime: 11/11/2016 19:53 Fall Score: 20 Fall Risk Score Definition: No Risk: No action required Datetime: 11/11/2016 07:40 Fall Score: 20 Fall Risk Score Definition: No Risk: No action required Datetime: 11/10/2016 20:21 Fall Score: 20 Fall Risk Score Definition: No Risk: No action required Datetime: 11/09/2016 20:22 Fall Score: 0 Fall Risk Score Definition: No Risk: No action required Datetime: 11/09/2016 19:47 EGA: 25.1 Datetime: 11/09/2016 17:00 EGA: 25.0 Datetime: 10/30/2016 23:25 Fall Score: 0 Fall Risk Score Definition: No Risk: No action required Datetime: 10/29/2016 23:51 Fall Score: 0 Fall Risk Score Definition: No Risk: No action required Datetime: 10/29/2016 23:35 Fall Score: 0 Fall Risk Score Definition: No Risk: No action required Datetime: 10/29/2016 23:20 EGA: 23.4 Datetime: 10/19/2016 22:45 Fall Score: 0 Fall Risk Score Definition: No Risk: No action required Datetime: 10/18/2016 22:25 EGA: 21.6 Datetime: 10/09/2016 07:29 Fall Score: 0 Fall Risk Score Definition: No Risk: No action required Datetime: 10/08/2016 19:54 Fall Score: 0 Fall Risk Score Definition: No Risk: No action required Datetime: 10/08/2016 16:08 Fall Score: 0 Fall Risk Score Definition: No Risk: No action required Datetime: 10/08/2016 16:03 EGA: 20.3
--- NOTE | 2017-02-12 12:41 | PN ---
Triage Information Date/Time Weeks of Gestation 38 4/7 : 3 Para: 2 Diabetes: gestational Diabetes management: oral agent Additional information Reports contractions and diarrhea, which is improving. Objective Vital Signs Date Time Temp Pulse Resp B/P Pulse Ox O2 Delivery O2 Flow Rate FiO2 02/12/17 10:29 98.2 102 16 119/72 Heart Rate Comments reactive Contractions: >10 Minutes Apart Exam /-3 Results/Medications Imaging Results BPP 8/8, VALENTIN 14.9 Assessment/Plan at 38 4/7 weeks with diarrhea and contractions, not in labor -discharge home with labor precautions -f/u for repeat as scheduled GEORGE ABDI Feb 12, 2017 12:41
== END 2017-02-12 13:19 | disposition home or self-care (01) ==
LOC: OBT 10:22 → L-D 10:22 → OBT 13:19
PROVIDERS: ATTEND Obstetrics & Gynecology
DX: O62.9 Abnormality of forces of labor, unspecified (principal); O24.419 Gestational diabetes mellitus in pregnancy, unspecified control; Z3A.38 38 weeks gestation of pregnancy; O26.893 Other specified pregnancy related conditions, third trimester; R19.7 Diarrhea, unspecified; Z79.84 Long term (current) use of oral hypoglycemic drugs
CPT/HCPCS: 76818; Z7500; G0463

== ENCOUNTER 2017-02-15 08:51 | Inpatient (IN) | payer OTHER ==
[~2017-02-15] VITALS: Ht 154.9 cm; Wt 118.6 kg
[~2017-02-15 08:51] MED LIST changes: -NIFEdipine PO; +OXYTOCIN 30 UNITS/LR 500 ML BAG IV ONE
[2017-02-15 13:10] VITALS: Ht 154.9 cm; Wt 118.6 kg
[2017-02-15] MEDS ORDERED: CARBOPROST 250 MCG INJ IM PRN ×2 (13:30→22:00)
[2017-02-15] MEDS ORDERED: CEFAZOLIN 2 GM/50 ML (PMX) 50 ML IV SCH (13:30)
[2017-02-15] MEDS ORDERED: METHYLERGONOVINE 0.2 MG INJ IM PRN ×2 (13:30→22:00)
[2017-02-15] MEDS ORDERED: OXYTOCIN 30 UNITS/LR 500 ML IV PRN ×2 (13:30→22:00)
[2017-02-15] MEDS ORDERED: MISOPROSTOL 200 MCG TAB PR PRN ×2 (13:30→22:00)
[2017-02-15] MEDS: LACTATED RINGER'S 1,000 ML IV SCH ×3 (14:01→22:20)
[2017-02-15 14:34] LABS: ADD SCAN DIFF NO
[2017-02-15 14:36] LABS: BASOPHILS % 0.1 % (0.0-2.0); EOSINOPHILS # 0.1 10^3/ul (0.0-0.5); EOSINOPHILS % 0.5 % (0.0-7.0); HEMATOCRIT 36.4 % (37.0-47.0); HEMOGLOBIN 12.2 g/dl (12.0-16.0); LYMPHOCYTES # 2.5 10^3/ul (0.8-2.9); LYMPHOCYTES % 27.2 % (15.0-51.0); MEAN CORPUSCULAR HEMOGLOBIN 27.7 pg (29.0-33.0); MEAN CORPUSCULAR HGB CONC 33.5 g/dl (32.0-37.0); MEAN CORPUSCULAR VOLUME 82.5 fl (82.0-101.0); MEAN PLATELET VOLUME 10.1 fl (7.4-10.4); MONOCYTE # 0.5 10^3/ul (0.3-0.9); MONOCYTES % 5.3 % (0.0-11.0); NEUTROPHIL # 6.1 10^3/ul (1.6-7.5); NEUTROPHILS % 66.3 % (39.0-77.0); PLATELET COUNT 244 10^3/UL (140-415); RED BLOOD COUNT 4.41 10^6/ul (4.20-5.40); RED CELL DISTRIBUTION WIDTH 14.3 % (11.5-14.5); WHITE BLOOD COUNT 9.3 10^3/ul (4.8-10.8)
[2017-02-15 14:53] LABS: INR 0.92; PROTIME 12.4 Sec (12.2-14.2)
[2017-02-15 14:54] LABS: PARTIAL THROMBOPLASTIN TIME 24.1 Sec (25.0-35.0)
[2017-02-15] MEDS ORDERED: ONDANSETRON 4 MG INJ ONE (16:31)
[2017-02-15] MEDS ORDERED: morphine SULFATE/PF (10 MG/10 ML) INJ ONE (16:31)
[2017-02-15] MEDS ORDERED: PHENYLephrine (100 MCG/ML) 5ML SYG ONE ×2 (16:31→17:12)
[2017-02-15] MEDS ORDERED: OXYTOCIN 10 UNIT INJ ONE (16:31)
--- NOTE | 2017-02-15 17:51 | HP ---
Date/Time of Note Date/Time of Note DATE: 02/15/17 TIME: 17:47 OB - History Hx of Present Free Text/Dictation admitted for repeat C/S and sterilization procedure Last Menstrual Period: Mar 27, 2016 Estimated Due Date: Feb 21, 2017 : 3 Para: 2 Care: Good Care Ultrasounds: Normal mid trimester US Obstetrical Complications: Gestational Diabetes Medical Complications: Other (previous C/S X 2 ) Past Family/Social History * Past Medical, Surgical, Family and Obstetric Histories reviewed from chart. Blood Type: A+ Rubella: immune RPR/VDRL: Negative GBS Status: Unknown HBsAG: Negative OB Admission Exam Physical Exam HEENT: WNL Heart: Rhythm Normal Lungs: Clear, Equal Abdomen: WNL Extremities: Normal Reflexes: Normal Cervical Dilatation: None Effacement: 0% Station: -3 Membranes: Intact Heart Rate: 140's Accelerations: Accelerations Present Decelerations: No Decelerations Varibility: Marked Contractions on Admission: None Last 72 hours Lab Results CBC & BMP 02/15/17 14:00 OB Assessment/Plan Reason for admission: section Other Assessment: term gestation previous C/S X 2 desires sterilization Other plan: repeat C/S + BTL CHIQUITA LOMBARDI MD Feb 15, 2017 17:51
--- NOTE | 2017-02-15 17:54 | OPR ---
Operative Report Planned Procedure Procedure date Feb 15, 2017 Procedure(s) repeat C/S + BTL Performed by: CHIQUITA LOMBARDI MD Assisting provider: SATISH ASHTON MD Anesthesiologist: ULYSSES PERALES MD Pre-procedure diagnosis term gestation previous C/S X 2 desired sterilization Anesthesia Type: spinal Procedure Description Under satisfactory anaesthesia a Pfannenstiel incision was made two fingerbreadth above and parallel to the symphysis of pubis around the previous scar and previous scar was removed Incision was extended laterally to the border of the Recti muscles on either sides. Incision was carried down with sharp and blunt dissection until fascia was reached. Anterior Recti muscle fascia was incised in mid portion and incision extended laterally to the border of skin incision. Fascia was mobilized from muscle superiorly and Recti muscles were from midline using sharp and blunt dissection. Peritoneum was visualized; Avoiding bowel and bladder it was incised . Incision was extended superiorly and inferiorly. Bladder blade was placed. Posterior peritoneum covering the lower segment of the uterus and lower segment of the uterus were incised.Low transverse uterine incision was made on lower segment of the uterus. Incision extended laterally to the border of Round Lig. on either sides and baby was delivered from OT. position . Amniotic fluid appeared clear. Cord blood was obtained and cord had 3 vessels . Placenta was delivered spontaneously and appeared intact and complete. Intrauterine cavity was rubbed with a laparotomy sponge. Uterine incision was closed in 2 layers using running stitches of No1 Monocryl. Hemostasis appeared secure. Ovaries and Fallopian tubes were within normal limits. Bilateral Tubal Ligation was performed by following procedure: R fallopian tube was raised in mid portion; a Batool clamp was placed below the fimbriae extending to proximal portion of the fallopian tube. Another clamp was placed parallel to the first and after incising the fallopian tube the stump was sutured using 0 Vicryl stitch. Hemostasis was secure . Same procedure was done on fallopian tube on the opposite side. Hemostasis appeared to be secure on ligated sites of either fallopian tubes. Announcing needle, lap sponge and instrument count to be correct abdomen was closed in layers as follows: Peritoneum and Recti muscles with running stitches of 20 Vicryl. Fascia with running stitch of No 1 PDS. Subcutaneous tissue with running stitches of 20 Chromic and skin was closed using ja. Patient tolerated the procedure well and was transferred to [facility] in good condition. Post-Procedure Post-procedure diagnosis S/P C/S + BTL Findings: Live Baby Specimen removed: Yes Specimen description segments of rR and L fallopian tubes Complications: None Pt Condition post procedure: stable Disposition: PACU Physician Certification I, the undersigned physician, hereby certify that I have discussed the procedure described in this consent form with this patient (or the patient's legal sales promotion representative), including: * The risk and benefits of the procedure; * Any adverse reactions that may reasonably be expected to occur; * Any alternative efficacious methods of treatment which may be medically viable ; * The potential problems that may occur during recuperation; * Potential for blood transfusion and associated risks/benefits; and * Any research or economic interest I may have regarding this treatment. I further certify that the patient/legally responsible person was encouraged to ask question and that all questions were answered. CHIQUITA LOMBARDI MD Feb 15, 2017 17:54
[2017-02-15] MEDS: OXYTOCIN 30 UNITS/LR 500 ML IV SCH ×2 (18:51→18:54)
[2017-02-15] MEDS ORDERED: DEXTROSE 50% 50 ML SYRINGE IV PRN ×2 (19:00)
[2017-02-15] MEDS ORDERED: GLUCOSE GEL 15 GRAM TUBE PO PRN ×2 (19:00)
[2017-02-15] MEDS ORDERED: GLUCOSE GEL 15 GRAM TUBE BUCCAL PRN (19:00)
[2017-02-15] MEDS ORDERED: GLUCAGON 1 MG INJ IM PRN (19:00)
[2017-02-15] MEDS ORDERED: DIPHENHYDRAMINE 50 MG INJ IV PRN (20:30)
[2017-02-15] MEDS ORDERED: NALOXONE (0.4 MG/ML) INJ IV PRN (20:30)
[2017-02-15] MEDS ORDERED: HYDROmorphONE 1 MG/ML SYG IV PRN ×2 (20:30)
[2017-02-15] MEDS ORDERED: ONDANSETRON 4 MG INJ IV PRN (20:30)
[2017-02-15 20:45] VITALS: BP 110/63; RESP 18
[2017-02-15 21:00] VITALS: BP 110/68; RESP 18
[2017-02-15] MEDS ORDERED: OXYCODONE/ACETAMINOPHEN (5/325) TAB PO PRN (22:00)
[2017-02-15] MEDS ORDERED: ACETAMINOPHEN/CODEINE #3 TAB PO PRN (22:00)
[2017-02-15] MEDS ORDERED: IBUPROFEN 800 MG TAB PO SCH (22:00)
[2017-02-15] MEDS ORDERED: NA PHOSPHATE/BIPHOS 133 ML ENEMA PR PRN ×2 (22:00)
[2017-02-15] MEDS ORDERED: LANOLIN 7 GM TUBE TOP PRN (22:00)
[2017-02-15] MEDS: CEFAZOLIN 2 GM/50 ML (PMX) 50 ML IV SCH (22:24)
[2017-02-16] VITALS: BP 112/70; RESP 18
[2017-02-16 04:00] VITALS: BP 113/75; RESP 18
[2017-02-16] MEDS: CEFAZOLIN 2 GM/50 ML (PMX) 50 ML IV SCH ×2 (06:20→13:55)
[2017-02-16 07:45] LABS: ADD SCAN DIFF NO
[2017-02-16 07:53] LABS: BASOPHILS % 0.2 % (0.0-2.0); EOSINOPHILS % 0.3 % (0.0-7.0); HEMATOCRIT 32.6 % (37.0-47.0); HEMOGLOBIN 10.4 g/dl (12.0-16.0); LYMPHOCYTES # 2.7 10^3/ul (0.8-2.9); LYMPHOCYTES % 23.2 % (15.0-51.0); MEAN CORPUSCULAR HEMOGLOBIN 27.1 pg (29.0-33.0); MEAN CORPUSCULAR HGB CONC 31.9 g/dl (32.0-37.0); MEAN CORPUSCULAR VOLUME 84.9 fl (82.0-101.0); MEAN PLATELET VOLUME 10.2 fl (7.4-10.4); MONOCYTE # 0.7 10^3/ul (0.3-0.9); MONOCYTES % 6.3 % (0.0-11.0); NEUTROPHILS % 69.7 % (39.0-77.0); PLATELET COUNT 201 10^3/UL (140-415); RED BLOOD COUNT 3.84 10^6/ul (4.20-5.40); RED CELL DISTRIBUTION WIDTH 14.6 % (11.5-14.5); WHITE BLOOD COUNT 11.5 10^3/ul (4.8-10.8)
[2017-02-16 08:00] VITALS: BP 104/50; RESP 18
[2017-02-16] MEDS: ACCU-CHEK XX SCH ×4 (08:00→20:30)
[2017-02-16] MEDS: metFORMIN (XR) 500 MG TAB PO SCH ×2 (08:38→17:35)
[2017-02-16] MEDS: LACTATED RINGER'S 1,000 ML IV SCH (08:38)
[2017-02-16 12:17] VITALS: BP 112/55; RESP 18
--- NOTE | 2017-02-16 13:12 | PN ---
Date/Time of Note Date/Time of Note DATE: 02/16/17 TIME: 13:10 Assessment/Plan VTE Prophylaxis VTE Prophylaxis Intervention: ambulation Lines/Catheters IV Catheter Type (from Nrsg): Peripheral IV Assessment/Plan Assessment/Plan S/P C/S POD # 1 sugars are stable will afvance diet slowly and monitor vital signs Subjective 24 Hr Interval Summary No BM passing flatus Constitutional: BM, ambulates, flatus, improved, no complaints, urine output Pain Control: well controlled Exam/Review of Systems Vital Signs Vitals Vital Signs Date Time Temp Pulse Resp B/P Pulse Ox O2 Delivery O2 Flow Rate FiO2 02/16/17 12:17 98.0 18 112/55 99 Room Air Intake and Output 02/15/17 02/15/17 02/16/17 15:00 23:00 07:00 Intake Total 1250 ml Output Total 500 ml 700 ml Balance 750 ml -700 ml Exam Free Text/Dictation abdomen: soft BS + incision covered Constitutional: alert, oriented, well developed Psych: nl mood/affect, no complaints Head: atraumatic, normocephalic Eyes: EOMI, nl conjunctiva, nl lids, nl sclera ENMT: mucosa pink and moist, nl external ears & nose, nl lips & teeth, nl nasal mucosa & septum Neck: non-tender, supple Respiratory: clear to auscultation, normal air movement Cardiovascular: nl pulses, regular rate and rhythm Gastrointestinal: nl liver, spleen, non-tender, soft Musculoskeletal: nl extremities to inspection, nl gait and stance Extremities: normal pulses Neurological: CONFERENCE TRANSLATOR II-XII intact, nl mental status, nl speech, nl strength Skin: nl turgor, rash or lesions Lymph: nl lymph nodes Results Result Diagram: 02/16/17 0723 02/15/17 1400 CHIQUITA LOMBARDI MD Feb 16, 2017 13:12
[2017-02-16 15:45] VITALS: BP 100/66; PULSE 89
[2017-02-16] MEDS: CLINDAMYCIN 300 MG CAP PO SCH ×2 (17:35→23:41)
[2017-02-16] MEDS ORDERED: BISACODYL 10 MG SUPP PR ONE (18:00)
[2017-02-16 20:00] VITALS: BP 105/63; PULSE 95; RESP 20
[2017-02-16] MEDS: SENNA/DOCUSATE NA (8.6MG/50MG) TAB PO SCH (20:37)
[2017-02-16] MEDS: ACETAMINOPHEN 325 MG TAB PO PRN (20:44)
[2017-02-17 00:15] VITALS: BP 112/66; PULSE 86; RESP 19
[2017-02-17 04:00] VITALS: BP 126/84; PULSE 80; RESP 18
[2017-02-17] MEDS: CLINDAMYCIN 300 MG CAP PO SCH ×4 (05:37→23:41)
[2017-02-17] MEDS: ACCU-CHEK XX SCH ×4 (08:00→15:30)
[2017-02-17 08:24] VITALS: BP 116/80; PULSE 78; RESP 18
[2017-02-17] MEDS: metFORMIN (XR) 500 MG TAB PO SCH ×2 (08:33→17:34)
[2017-02-17] MEDS: SENNA/DOCUSATE NA (8.6MG/50MG) TAB PO SCH ×2 (08:33→21:23)
[2017-02-17] MEDS: ACETAMINOPHEN 325 MG TAB PO PRN ×3 (10:13→23:42)
[2017-02-17 16:00] VITALS: BP 102/75; PULSE 68; RESP 18
--- NOTE | 2017-02-17 18:15 | DS ---
Date/Time of Note Date/Time of Note home next day DATE: 02/17/17 TIME: 18:13 Obstetrical Discharge Record Final Diagnosis Final Diagnosis: Term delivered Other Final Diagnosis S/P C/S + BTL Vaginal Delivery Obstetrical Delivery: Bilateral Tubal Ligation Section Section: Repeat Complications Gestational Diabetes Condition on Discharge Physical Assessment Last Vitals: see nurses notes Voiding: Yes Bowel Movement: Yes Breast: Soft, non-tender, Filling Fundus: Firm Abdomen and Incision: soft bs + incision: healing well Episiotomy: NA Calf Tenderness: No Patient Condition: Good CIHQUITA LOMBARDI MD Feb 17, 2017 18:15
--- NOTE | 2017-02-17 18:21 | DS ---
Date/Time of Note Date/Time of Note home next day DATE: 02/17/17 TIME: 18:17 Discharge Summary Admission/Discharge Info Admit Date/Time Feb 15, 2017 at 12:45 Discharge Date/Time 02/18/2017 Discharge Diagnosis S/P repeat C/S and BTL diabetes Patient Condition: Good Procedures repeat C/S + BTL Hx of Present Illness 26 y/o female had repeat C/S + BTL Hospital Course uncomplicated Home Meds Active Scripts Metformin* (Glucophage* XR) 500 Mg Tab.sr.24h, 500 MG PO AC BREAKFAST DINNER, # 120 2 Refills Prov:CHIQUITA LOMBARDI MD 11/11/16 Reported Medications Ferrous Sulfate (Iron) 325 Mg Capsule.er, 325 MG PO, CAP 10/08/16 Multivit/Min/Fol Ac/Iron/Pren* ( S*) 1 Tab Tab, 1 TAB PO DAILY, TAB 10/08/16 Discontinued Scripts [NIFEdipine] 10 MG CAP No Conflict Check, 20 MG PO Q6, #120 4 Refills Prov:CHIQUITA LOMBARDI MD 11/11/16 Follow-up Plan 2 days in clinic for staple removal Primary Care Provider Samir Daniel MD Time spent on discharge: < 30 minutes Pending Labs Laboratory Tests Test 02/16/17 20:16 02/17/17 07:43 02/17/17 11:53 02/17/17 15:47 Bedside Glucose 106mg/dL (70-220) 129mg/dL (70-220) 105mg/dL (70-220) 80mg/dL (70-220) CHIQUITA LOMBARDI MD Feb 17, 2017 18:21
--- NOTE | 2017-02-17 18:30 | PD.PPDC ---
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 Provider Information Physician Information 26 y/o female had repeat C/S + BTL Diagnosis Final Diagnosis: S/P Condition Patient Condition: Good Diet Diet: Special Diet Special Diet: 41404 larisa diet Activity/Restrictions Activity: December Shower Restrictions: No Exercising No Lifting Nothing in the Vagina Return to Work or School: Apr 19, 2017 Follow-up Follow-up with Physician: 3, 4, Day/Days (in clinic for staple removal ) Return to clinic for SPECIALIST ICU Instructions: Fever greater than 101 Chills OB Instructions: Breast Tenderness Depression Surgical Instructions: Incisional Drainage Incisional Redness CHIQUITA LOMBARDI MD Feb 17, 2017 18:30
[2017-02-17] MEDS ORDERED: METF500T3 PO (18:35)
[2017-02-17 20:00] VITALS: BP 142/90; PULSE 86; RESP 20
[2017-02-18 04:24] VITALS: BP 127/64; PULSE 79; RESP 20
[2017-02-18] MEDS: CLINDAMYCIN 300 MG CAP PO SCH (05:28)
[2017-02-18] MEDS: ACETAMINOPHEN 325 MG TAB PO PRN ×2 (05:29→09:15)
[2017-02-18 08:30] VITALS: BP 116/71; PULSE 88; RESP 18
[2017-02-18] MEDS ORDERED: MEASLES,MUMPS,RUBELLA VACCINE INJ SC* ONE (09:00)
[2017-02-18] MEDS ORDERED: DIPHTH/TET/ACEL PERTUSS (ADULT) 0.5 ML VIAL IM* ONE (09:00)
[2017-02-18] MEDS: metFORMIN (XR) 500 MG TAB PO SCH (09:15)
[2017-02-18] MEDS: SENNA/DOCUSATE NA (8.6MG/50MG) TAB PO SCH (09:15)
== END 2017-02-18 16:55 | disposition home or self-care (01) | DRG 766 ==
LOC: L-D 12:45 → PP1 20:52
PROVIDERS: ADMIT Obstetrics & Gynecology; ATTEND Obstetrics & Gynecology
PROC: 0UB70ZZ Excision of Bilateral Fallopian Tubes, Open Approach (ICD-10-PCS; 2017-02-15)
PROC: 10D00Z1 Extraction of Products of Conception, Low, Open Approach (ICD-10-PCS; principal; 2017-02-15 15:30)
DX: O34.211 Maternal care for low transverse scar from previous cesarean delivery (principal); O24.429 Gestational diabetes mellitus in childbirth, unspecified control; Z3A.00 Weeks of gestation of pregnancy not specified; Z37.0 Single live birth; Z30.2 Encounter for sterilization
CPT/HCPCS: 82947; 82962; 85025; 85610; 85730; 86592; 86850; 86900; 86901; 87340; 88302; 88307; 90715; 99464; J0690; J1200; J2274; J2370; J2405; J2590; J7120

== ENCOUNTER 2017-03-31 18:54 | Emergency (ER) | payer OTHER ==
[~2017-03-31] VITALS: Ht 154.9 cm; Wt 107.5 kg
[~2017-03-31 18:54] MED LIST changes: -OXYTOCIN 30 UNITS/LR 500 ML BAG IV ONE
[2017-03-31 18:58] VITALS: Ht 154.9 cm; Wt 107.5 kg
--- NOTE | 2017-03-31 21:31 | ERD ---
ER Documentation Chief Complaint Date/Time DATE: 03/31/17 TIME: 21:29 Chief Complaint difficulty urinating x2 weeks. Gave in January and had a tubal ligation. HPI Patient is a 18-year-old female who presents to the emergency department for concerns of pain with urination 2 weeks. Of note patient recently gave in January he has and had a tubal ligation. Patient does report urinary frequency. Patient states she occasionally sees some specks of blood in her urine. Patient has not gotten her period yet. Patient denies any flank pain, abdominal pain, nausea, vomiting, fever or chills. Patient denies any trauma or falls. ROS All systems reviewed and are negative except as per history of present illness. Medications Home Meds Active Scripts Nitrofurantoin Monohyd Macrocr* (Macrobid*) 100 Mg Capsr, 100 MG PO BID for 5 Days, CAP Prov:APARNA SANCHEZ PA-C 03/31/17 Metformin* (Glucophage* XR) 500 Mg Tab.sr.24h, 500 MG PO BID WITH MEALS, #120 6 Refills Prov:CHIQUITA LOMBARDI MD 02/17/17 Reported Medications Ferrous Sulfate (Iron) 325 Mg Capsule.er, 325 MG PO, CAP 10/08/16 Multivit/Min/Fol Ac/Iron/Pren* ( S*) 1 Tab Tab, 1 TAB PO DAILY, TAB 10/08/16 Allergies Allergies: Coded Allergies: ibuprofen (Verified Allergy, Severe, blisters in mouth, 02/03/17) oxycodone (Verified Allergy, Severe, itching, 02/03/17) PMhx/Soc History of Surgery: Yes (C section) Anesthesia Reaction: No Hx Neurological Disorder: No Hx Respiratory Disorders: No Hx Cardiac Disorders: No Hx Psychiatric Problems: No Hx Miscellaneous Medical Probl: Yes (OBESITY) Hx Alcohol Use: No Hx Substance Use: No Hx Tobacco Use: No Smoking Status: Never smoker Physical Exam Vitals Vital Signs Date Time Temp Pulse Resp B/P Pulse Ox O2 Delivery O2 Flow Rate FiO2 03/31/17 18:58 98.7 78 18 125/76 97 Physical Exam GENERAL: Well-developed, well-nourished female. Appears in no acute distress. HEAD: Normocephalic, atraumatic. EYES: Pupils are equally reactive bilaterally. EOMs grossly intact. No conjunctival erythema. ENT: Moist mucous membranes. No uvula deviation. No kissing tonsils. NECK: Supple. No meningismus. Normal range of motion of the neck. LUNG: Clear to auscultation bilaterally. No rhonchi, wheezing, rales or coarse breath sounds. HEART: Regular rate and rhythm. No murmurs, rubs or gallops. ABDOMEN: Midline line noted above the pubic symphysis, nonerythematous , non-swollen, no active bleeding or discharge. No wound dehiscence. Soft, non tender and nondistended. Positive bowel sounds in all four quadrants. No rebound tenderness, no guarding. (-) McBurney's point tenderness. No CVA tenderness. BACK: No midline tenderness. EXTREMITIES: Equal pulses bilaterally. No peripheral clubbing, cyanosis or edema. No unilateral leg swelling. NEUROLOGIC: Alert and oriented. Moving all four extremities without any difficulty. Normal speech. Steady gait. SKIN: Normal color. Warm and dry. No rashes or lesions. Results 24 hrs Laboratory Tests Test 03/31/17 22:09 Bedside Urine pH (LAB) 7.0 Bedside Urine Protein (LAB) Trace Bedside Urine Glucose (UA) Negative Bedside Urine Ketones (LAB) Negative Bedside Urine Blood 1+ Bedside Urine Nitrite (LAB) Negative Bedside Urine Leukocyte Esterase (L 1+ Procedures/MDM MEDICAL DECISION MAKING: This is a 26-year-old female who presents emergency room for concerns of dysuria , frequency and hematuria 2 weeks. Vital signs were reviewed. Patient was afebrile. Urine dip showed 1+ leukocyte esterase, 1+ blood. Urine was negative. Given these findings, the patients presentation is most consistent with urinary tract infection. I have a much lower clinical concern for pyelonephritis, nephrolithiasis, appendicitis, diverticulitis, constipation , , ectopic , PID, ovarian torsion, or tubo-ovarian abscess. PRESCRIPTIONS: Macrobid DISCHARGE: At this time, patient is stable for discharge and outpatient management. I have instructed the patient to follow-up with his/her primary care physician in 1-2 days. Patient should repeat UA in 2 weeks to check for resolution of urinary tract infection. If symptoms persist, patient may need to see a specialist for further examinations and testing. I have instructed the patient to promptly return to the ER at any time for any new or worsening symptoms including increased pain, fever, nausea, vomiting, urinary changes or weakness. The patient and/or family expressed understanding of and agreement with this plan. All questions were answered. Home care instructions were provided. Departure Diagnosis: Primary Impression: UTI (urinary tract infection) Urinary tract infection type: site unspecified Hematuria presence: without hematuria Qualified Code: N39.0 - Urinary tract infection without hematuria, site unspecified Condition: Stable Patient Instructions: Understanding Urinary Tract Infections (UTIs) Referrals: ZAINAB MCCLELLAND MD (PCP) FORMERLY [facility], 1928–1983 YOU HAVE RECEIVED A MEDICAL SCREENING EXAM AND THE RESULTS INDICATE THAT YOU DO NOT HAVE A CONDITION THAT REQUIRES URGENT TREATMENT IN THE EMERGENCY DEPARTMENT. FURTHER EVALUATION AND TREATMENT OF YOUR CONDITION CAN WAIT UNTIL YOU ARE SEEN IN YOUR DOCTORS OFFICE WITHIN THE NEXT 1-2 DAYS. IT IS YOUR RESPONSIBILITY TO MAKE AN APPOINTMENT FOR FOLOW-UP CARE. IF YOU HAVE A PRIMARY DOCTOR --you should call your primary doctor and schedule an appointment IF YOU DO NOT HAVE A PRIMARY DOCTOR YOU CAN CALL OUR PHYSICIAN REFERRAL HOTLINE AT IF YOU CAN NOT AFFORD TO SEE A PHYSICIAN YOU CAN CHOSE FROM THE FOLLOWING [facility] [address] [facility]. [place] [address] [facility]. [facility] [address] [facility]. [facility] [address] [facility]. [facility] [address] [facility]. [facility]. [address] [facility] YOU HAVE RECEIVED A MEDICAL SCREENING EXAM AND THE RESULTS INDICATE THAT YOU DO NOT HAVE A CONDITION THAT REQUIRES URGENT TREATMENT IN THE EMERGENCY DEPARTMENT. FURTHER EVALUATION AND TREATMENT OF YOUR CONDITION CAN WAIT UNTIL YOU ARE SEEN IN YOUR DOCTORS OFFICE WITHIN THE NEXT 1-2 DAYS. IT IS YOUR RESPONSIBILITY TO MAKE AN APPOINTMENT FOR FOLOW-UP CARE. IF YOU HAVE A PRIMARY DOCTOR --you should call your primary doctor and schedule and appointment IF YOU DO NOT HAVE A PRIMARY DOCTOR YOU CAN CALL OUR PHYSICIAN REFERRAL HOTLINE AT . IF YOU CAN NOT AFFORD TO SEE A PHYSICIAN YOU CAN CHOSE FROM THE FOLLOWING [facility]: [facility] [address] [place] [address] [place] [address] [place] [address] [facility] [address] [place] [address] MAPPING A[place] [address] [facility] [address] [place] [address]ABUSLEME CHARLES [address] [place] [address] DR. GONZALEZ BATH [address] [place] [address] DR GALLO [facility] [address] [facility], [address], [facility] [address] [address] [address] [place] [address] [facility] [address] [place] [address] [address] [facility] [address] - [address] NELSON LAURI [address] [facility]. [address], [facility] [address] [address] [facility] [address] [facility]. [address], [facility] [address] [address] [address] [place], [place] [id number] Additional Instructions: Call your primary care doctor TOMORROW for an appointment during the next 1-2 days.See the doctor sooner or return here if your condition worsens before your appointment time. APARNA SANCHEZ PA-C Mar 31, 2017 21:31
[2017-03-31 22:03] LABS: URINE BLOOD (Dip) POC 1+ (NEGATIVE)
[2017-03-31] MEDS ORDERED: NITR-58 PO (22:08)
[2017-03-31 22:18] VITALS: BP 157/97; PULSE 88; RESP 20
== END 2017-03-31 22:19 | disposition home or self-care (01) ==
LOC: FTE 18:54
DX: N39.0 Urinary tract infection, site not specified (principal); E66.9 Obesity, unspecified; Z68.41 Body mass index [BMI] 40.0-44.9, adult; Z79.84 Long term (current) use of oral hypoglycemic drugs
CPT/HCPCS: 81003; 99283

== ENCOUNTER 2017-06-12 14:16 | Emergency (ER) | payer OTHER ==
[~2017-06-12] VITALS: Ht 162.6 cm; Wt 106.5 kg
[~2017-06-12 14:16] MED LIST changes: +NITR-58 PO
[2017-06-12 14:21] VITALS: Ht 162.6 cm; Wt 106.5 kg
[2017-06-12 16:13] LABS: URINE BLOOD (Dip) POC Trace-intact (NEGATIVE)
[2017-06-12] MEDS ORDERED: CIPR500T4 PO (16:22)
--- NOTE | 2017-06-13 19:43 | ERD ---
ER Documentation Chief Complaint Chief Complaint pt bib self with c/o urinary urgency and pain , 4 months ago HPI Patient is a 26-year-old female with past medical history of urinary tract infections presenting to the emergency department with complaints of 8 days of intermittent urinary urgency and dysuria. She had a 4 months ago. Last menstrual cycle was March 2016, however she did have tubal ligation, and denies chance of . She denies fevers, back pain, or other symptoms currently. Symptoms are currently mild in severity. ROS All systems reviewed and are negative except as per history of present illness. Medications Home Meds Active Scripts Ciprofloxacin Hcl* (Ciprofloxacin Hcl*) 500 Mg Tablet, 500 MG PO BID for 7 Days , #14 TAB Prov:CHIRAG OZUNA PA-C 06/12/17 Nitrofurantoin Monohyd Macrocr* (Macrobid*) 100 Mg Capsr, 100 MG PO BID for 5 Days, CAP Prov:APARNA SANCHEZ PA-C 03/31/17 Metformin* (Glucophage* XR) 500 Mg Tab.sr.24h, 500 MG PO BID WITH MEALS, #120 6 Refills Prov:CHIQUITA LOMBARDI MD 02/17/17 Reported Medications Ferrous Sulfate (Iron) 325 Mg Capsule.er, 325 MG PO, CAP 10/08/16 Multivit/Min/Fol Ac/Iron/Pren* ( S*) 1 Tab Tab, 1 TAB PO DAILY, TAB 10/08/16 Allergies Allergies: Coded Allergies: ibuprofen (Verified Allergy, Severe, blisters in mouth, 02/03/17) oxycodone (Verified Allergy, Severe, itching, 02/03/17) PMhx/Soc History of Surgery: Yes (C section) Anesthesia Reaction: No Hx Neurological Disorder: No Hx Respiratory Disorders: No Hx Cardiac Disorders: No Hx Psychiatric Problems: No Hx Miscellaneous Medical Probl: Yes (OBESITY) Hx Alcohol Use: No Hx Substance Use: No Hx Tobacco Use: No Smoking Status: Never smoker Physical Exam Vitals Vital Signs Date Time Temp Pulse Resp B/P Pulse Ox O2 Delivery O2 Flow Rate FiO2 06/12/17 14:21 98.9 74 16 139/88 98 Physical Exam Const: Nontoxic, well-appearing female in no acute distress. Head: Atraumatic Eyes: Normal Conjunctiva ENT: Normal External Ears, Nose and Mouth. Neck: Full range of motion..~ No meningismus. Resp: Clear to auscultation bilaterally Cardio: Regular rate and rhythm, no murmurs Abd: Soft, non tender, non distended. Normal bowel sounds Skin: No petechiae or rashes Back: No midline or flank tenderness Ext: No cyanosis, or edema Neur: Awake and alert Psych: Normal Mood and Affect Results 24 hrs Laboratory Tests Test 06/12/17 16:12 06/12/17 16:21 Bedside Urine pH (LAB) 5.5 Bedside Urine Protein (LAB) 1+ Bedside Urine Glucose (UA) Negative Bedside Urine Ketones (LAB) Negative Bedside Urine Blood Trace-intact Bedside Urine Nitrite (LAB) Negative Bedside Urine Leukocyte Esterase (L Trace Bedside Glucose 99mg/dL Procedures/MDM 26-year-old female presents to the emergency department with complaints of dysuria. Physical examination is essentially unremarkable. Urinalysis is concerning for mild urinary tract infection. Low suspicion for pyelonephritis. The patient was stable for outpatient management with prescriptions. She is to return immediately for any new or worsening symptoms. She was in agreement with the discharge diagnosis and plan. She is to follow-up with her primary care physician within the next 1-2 days. Departure Diagnosis: Primary Impression: Urinary tract infection Urinary tract infection type: acute cystitis Hematuria presence: without hematuria Qualified Code: N30.00 - Acute cystitis without hematuria Condition: Fair Patient Instructions: Understanding Urinary Tract Infections (UTIs) Additional Instructions: Follow up with your PCP within the next 1-3 days for a repeat evaluation. If you require a referral to a specialist, your Primary Care Provider may be able to provide this for you. In most patient cases, a referral is not required. If you have further questions regarding this matter, please ask your Primary Care Provider. Return the the emergency department immediately if symptoms worsen or change. If you have any questions regarding medications, ask your pharmacist or us before you leave. If any adverse reactions, occur while taking your medications, discontinue the treatment and return to the emergency department immediately. If any new or worsening symptoms, uncontrolled fevers, or other unexplained symptoms occur, return to the emergency department immediately. Take your medications as directed, and complete the entire course of treatment. CHIRAG OZUNA PA-C Jun 13, 2017 19:43
== END 2017-06-12 16:37 | disposition home or self-care (01) ==
LOC: FTE 14:16
DX: N30.00 Acute cystitis without hematuria (principal); E66.9 Obesity, unspecified; Z79.84 Long term (current) use of oral hypoglycemic drugs; Z68.41 Body mass index [BMI] 40.0-44.9, adult
CPT/HCPCS: 81003; 82962; Z7502; 99283

== ENCOUNTER 2017-07-14 17:08 | Emergency (ER) | payer OTHER ==
[~2017-07-14] VITALS: Ht 154.9 cm; Wt 105.2 kg
[~2017-07-14 17:08] MED LIST changes: +CIPR500T4 PO
[2017-07-14 17:12] VITALS: Ht 154.9 cm; Wt 105.2 kg
--- NOTE | 2017-07-14 18:32 | ERD ---
ER Documentation Chief Complaint Chief Complaint PALPITATIONS X 4 DAYS, CHEST PAIN WITH INSPIRATION HPI This is a 26-year-old female who states over the past 6 days she has had dyspnea on exertion and orthopnea. She says when she walks she gets short of breath and feels palpitations and the symptoms go away when she is at rest. There is no chest pain. She has no cough. The patient denies any medical problems. Denies any leg swelling or calf pain. Denies any fever denies any pain with movement. Patient has a history of pleurisy she tells me that this is not quite the same presentation. Patient has a history of asthma says her breathing problems are not asthma that she has asthma feels like and this is not the same thing. ROS All systems reviewed and are negative except as per history of present illness. Medications Home Meds Active Scripts Ciprofloxacin Hcl* (Ciprofloxacin Hcl*) 500 Mg Tablet, 500 MG PO BID for 7 Days , #14 TAB Prov:CHIRAG OZUNA PA-C 06/12/17 Nitrofurantoin Monohyd Macrocr* (Macrobid*) 100 Mg Capsr, 100 MG PO BID for 5 Days, CAP Prov:APARNA SANCHEZ PA-C 03/31/17 Metformin* (Glucophage* XR) 500 Mg Tab.sr.24h, 500 MG PO BID WITH MEALS, #120 6 Refills Prov:CHIQUITA LOMBARDI MD 02/17/17 Reported Medications Ferrous Sulfate (Iron) 325 Mg Capsule.er, 325 MG PO, CAP 10/08/16 Multivit/Min/Fol Ac/Iron/Pren* ( S*) 1 Tab Tab, 1 TAB PO DAILY, TAB 10/08/16 Allergies Allergies: Coded Allergies: ibuprofen (Verified Allergy, Severe, blisters in mouth, 02/03/17) oxycodone (Verified Allergy, Severe, itching, 02/03/17) PMhx/Soc History of Surgery: Yes (C section) Anesthesia Reaction: No Hx Neurological Disorder: No Hx Respiratory Disorders: Yes (ASTHMA 2006) Hx Cardiac Disorders: No Hx Psychiatric Problems: No Hx Miscellaneous Medical Probl: Yes (OBESITY) Hx Alcohol Use: No Hx Substance Use: No Hx Tobacco Use: No Smoking Status: Never smoker FmHx Family History: No coronary disease Physical Exam Vitals Vital Signs Date Time Temp Pulse Resp B/P Pulse Ox O2 Delivery O2 Flow Rate FiO2 07/14/17 17:12 99.0 89 18 119/75 98 Physical Exam Const: Well-developed, well-nourished Head: Atraumatic, normocephalic Eyes: Normal Conjunctiva, PERRLA, EOMI, normal sclera, no nystagmus ENT: Normal External Ears, Nose and Mouth, moist mucus membranes. Neck: Full range of motion. No meningismus, no lymphadenopathy. Resp: Clear to auscultation bilaterally, no wheezing, rhonchi, rales Cardio: Regular rate and rhythm, no murmurs, S1 S2 present Abd: Soft, non tender x 4, non distended. Normal bowel sounds, no guarding or rebound, no pulsitile abdominal masses or bruits Skin: No petechiae or rashes, no ecchymosis , no maculopapular rash Back: No midline or flank tenderness Ext: No cyanosis, or edema, FROM x 4, normal inspection, neurovascularly intact x 4 Neur: Awake and alert, STR 5/5 x 4, sensation intact x 4, no focal findings, cerebellum intact Psych: Normal Mood and Affect Result Diagram: 07/14/17181407/14/171814 Results 24 hrs Laboratory Tests Test 07/14/17 18:15 White Blood Count 9.610^3/ul Red Blood Count 4.6510^6/ul Hemoglobin 12.9g/dl Hematocrit 39.8% Mean Corpuscular Volume 85.6fl Mean Corpuscular Hemoglobin 27.7pg Mean Corpuscular Hemoglobin Concent 32.4g/dl Red Cell Distribution Width 12.7% Platelet Count 69730^3/UL Mean Platelet Volume 9.2fl Neutrophils % 58.7% Lymphocytes % 33.5% Monocytes % 6.0% Eosinophils % 1.2% Basophils % 0.2% Nucleated Red Blood Cells % 0.0/100WBC Neutrophils # 5.610^3/ul Lymphocytes # 3.210^3/ul Monocytes # 0.610^3/ul Eosinophils # 0.110^3/ul Basophils # 0.010^3/ul Nucleated Red Blood Cells # 0.010^3/ul Prothrombin Time 13.1Sec Prothrombin Time Ratio 1.0 INR International Normalized Ratio 0.99 Activated Partial Thromboplast Time 28.1Sec Sodium Level 144mmol/L Potassium Level 3.8mmol/L Chloride Level 101mmol/L Carbon Dioxide Level 31mmol/L Anion Gap 16 Blood Urea Nitrogen 19mg/dl Creatinine 0.72mg/dl Glucose Level 109mg/dl Calcium Level 9.5mg/dl Troponin I < 0.012ng/ml B-Type Natriuretic Peptide 74PG/ML Current Medications Medications (Trade) Dose Ordered Sig/Wendi Route PRN Reason Start Time Stop Time Status Last Admin Dose Admin IV Flush 10 ml 10 ml STK-MED ONCE .ROUTE 07/14/17 19:18 07/14/17 19:19 DC Sodium Chloride 100 ml @ ud STK-MED ONCE .ROUTE 07/14/17 19:18 07/14/17 19:19 DC Iohexol (Omnipaque) 100 ml @ ud STK-MED ONCE .ROUTE 07/14/17 19:18 07/14/17 19:19 DC Procedures/MDM EKG: Rate/Rhythm: Normal Sinus Rhythm,NL intervals QRS, ST, QT: NORMAL UT, QRS, QT] Impression: NORMAL EKG PROCEDURE: CT angiogram chest. CLINICAL INDICATION: Shortness of breath. TECHNIQUE: CT angiogram of the chest was performed utilizing axial images with reconstructions in sagittal and coronal planes following the intravenous administration of 100 cc Omnipaque 350 contrast. The administered radiation dose is CTDI 19.9 mGy, DLP 752 mGy-cm. One or more of the following dose reduction techniques were used: automated exposure control, adjustment of the mA and/or kV according to patient size and/or use of iterative reconstruction technique. 3D and / or MIPS reformats were performed. DICOM images are available. COMPARISON: No pertinent prior examinations are submitted for comparison. FINDINGS: Pulmonary angiogram: The pulmonary arteries are adequately opacified to the level of the segmental pulmonary artery branches. There is minimal respiratory motion artifact. There is no evidence of pulmonary embolus. Aortogram: There is no evidence of aortic dissection or aneurysm. Major branches of the aorta are patent. Chest: The lungs are clear. No pleural or pericardial effusions are seen. The tracheobronchial tree is unremarkable. The heart is normal in size. No pericardial effusion is seen. There is no evidence of mediastinal or hilar adenopathy. Visualized Upper abdomen: Unremarkable. Osseous structures: Unremarkable. IMPRESSION: No evidence of pulmonary embolus. RPTAT: HIKT .Leonard Feliz MD, MD Date Time Electronically viewed and signed by .Leonard Feliz MD, on 07/14/2017 20:03 .T/ CC: JULIET SANTIAGO DO There is no evidence of pulmonary embolism or heart failure or pneumonia or pneumothorax. The patient says she has not had an asthma flareup since 2005. I will treat her with some steroids and albuterol inhaler every 4 hours to see if this clears up the issue because there is no other likely cause of some type of bronchoconstriction to me. We will have her follow-up with her primary I also recommended to her that she get a Holter monitor Departure Diagnosis: Primary Impression: Dyspnea Dyspnea type: dyspnea on exertion Qualified Code: R06.09 - Dyspnea on exertion Additional Impression: Palpitation Condition: Stable JULIET SANTIAGO DO Jul 14, 2017 18:32
[2017-07-14 18:35] LABS: BASOPHILS % 0.2 % (0.0-2.0); EOSINOPHILS # 0.1 10^3/ul (0.0-0.5); EOSINOPHILS % 1.2 % (0.0-7.0); HEMATOCRIT 39.8 % (37.0-47.0); HEMOGLOBIN 12.9 g/dl (12.0-16.0); LYMPHOCYTES # 3.2 10^3/ul (0.8-2.9); LYMPHOCYTES % 33.5 % (15.0-51.0); MEAN CORPUSCULAR HEMOGLOBIN 27.7 pg (29.0-33.0); MEAN CORPUSCULAR HGB CONC 32.4 g/dl (32.0-37.0); MEAN CORPUSCULAR VOLUME 85.6 fl (82.0-101.0); MEAN PLATELET VOLUME 9.2 fl (7.4-10.4); MONOCYTE # 0.6 10^3/ul (0.3-0.9); NEUTROPHIL # 5.6 10^3/ul (1.6-7.5); NEUTROPHILS % 58.7 % (39.0-77.0); PLATELET COUNT 294 10^3/UL (140-415); RED BLOOD COUNT 4.65 10^6/ul (4.20-5.40); RED CELL DISTRIBUTION WIDTH 12.7 % (11.5-14.5); WHITE BLOOD COUNT 9.6 10^3/ul (4.8-10.8)
[2017-07-14 19:00] LABS: ANION GAP 16 (8-16); BLOOD UREA NITROGEN 19 mg/dl (7-20); CALCIUM 9.5 mg/dl (8.4-10.2); CARBON DIOXIDE 31 mmol/L (21-31); CHLORIDE 101 mmol/L (97-110); CREATININE 0.72 mg/dl (0.44-1.00); GLUCOSE 109 mg/dl (70-220); POTASSIUM 3.8 mmol/L (3.5-5.1); SODIUM 144 mmol/L (135-144)
[2017-07-14 19:03] LABS: INR 0.99; PROTIME 13.1 Sec (12.2-14.2)
[2017-07-14 19:04] LABS: PARTIAL THROMBOPLASTIN TIME 28.1 Sec (25.0-35.0)
[2017-07-14 19:06] LABS: B-TYPE NATRIURETIC PEPTIDE 74 PG/ML (0-125)
[2017-07-14 19:15] LABS: TROPONIN-I < 0.012 ng/ml (0.00-0.12)
[2017-07-14] MEDS ORDERED: SOD CHLORIDE 0.9% 100 ML ONE (19:18)
[2017-07-14] MEDS ORDERED: IOHEXOL 100 ML ONE (19:18)
--- NOTE | 2017-07-14 20:03 | RADRPT ---
PROCEDURE: CT angiogram chest. CLINICAL INDICATION: Shortness of breath. TECHNIQUE: CT angiogram of the chest was performed utilizing axial images with reconstructions in sagittal and coronal planes following the intravenous administration of 100 cc Omnipaque 350 contras t. The administered radiation dose is CTDI 19.9 mGy, DLP 752 mGy-cm. One or more of the following do se reduction techniques were used: automated exposure control, adjustment of the mA and/or kV accord ing to patient size and/or use of iterative reconstruction technique. 3D and / or MIPS reformats we re performed. DICOM images are available. COMPARISON: No pertinent prior examinations are submitted for comparison. FINDINGS: Pulmonary angiogram: The pulmonary arteries are adequately opacified to the level of the segmental pulmonary artery branches. There is minimal respiratory motion artifact. There is no evidence of p ulmonary embolus. Aortogram: There is no evidence of aortic dissection or aneurysm. Major branches of the aorta are patent. Chest: The lungs are clear. No pleural or pericardial effusions are seen. The tracheobronchial tree is un remarkable. The heart is normal in size. No pericardial effusion is seen. There is no evidence of mediastinal or hilar adenopathy. Visualized Upper abdomen: Unremarkable. Osseous structures: Unremarkable. IMPRESSION: No evidence of pulmonary embolus. RPTAT: HIKT .Leonard Feliz MD, Date Time Electronically viewed and signed by .Leonard Feliz MD, on 07/14/2017 20:03 .T/
[2017-07-14] MEDS ORDERED: PRED20TA PO (20:32)
[2017-07-14] MEDS ORDERED: ALBU8.5H3 INH (20:32)
[2017-07-14 21:00] VITALS: BP 115/78; PULSE 88; RESP 19; TEMP 98.1
== END 2017-07-14 21:30 | disposition home or self-care (01) ==
LOC: FTE 17:08
DX: R06.09 Other forms of dyspnea (principal); J45.909 Unspecified asthma, uncomplicated; E66.9 Obesity, unspecified; R06.02 Shortness of breath; Z79.84 Long term (current) use of oral hypoglycemic drugs; Z68.41 Body mass index [BMI] 40.0-44.9, adult
CPT/HCPCS: 36415; 71275; 80048; 83880; 84484; 85025; 85610; 85730; Q9967; Z7502; Z7610

== ENCOUNTER 2017-09-06 18:07 | Emergency (ER) | END 2017-09-06 23:26 | disposition home or self-care (01) ==

== ENCOUNTER 2017-11-22 05:45 | Emergency (ER) | END 2017-11-22 10:15 | disposition home or self-care (01) ==

== ENCOUNTER 2017-12-05 13:40 | Emergency (ER) | END 2017-12-05 19:08 | disposition home or self-care (01) ==

== ENCOUNTER 2018-01-30 21:17 | Emergency (ER) | END 2018-01-31 03:11 | disposition home or self-care (01) ==

== ENCOUNTER 2018-03-06 22:26 | Emergency (ER) | END 2018-03-07 01:59 | disposition home or self-care (01) ==

== ENCOUNTER 2018-05-09 23:54 | Emergency (ER) | END 2018-05-10 03:33 | disposition home or self-care (01) ==

== ENCOUNTER 2018-06-30 14:09 | Emergency (ER) | END 2018-06-30 17:05 | disposition home or self-care (01) ==

== ENCOUNTER 2018-09-13 14:23 | Emergency (ER) | payer OTHER ==
[~2018-09-13] VITALS: Ht 154.9 cm; Wt 117.0 kg
[~2018-09-13 14:23] MED LIST changes: +ACET325T33 PO; +ACET500C5 PO; +ALBU8.5H8 INH; +AMOX500C2 PO; +CETI10CA PO; +CYCL10TA7 PO; +DOCU-144 PO; +FER325 PO; +FLUT9.9S NASAL; +GUAI5SYR2 PO; +HC30CR25 TOP; +NAPR-985 PO; +PRED20TA PO; +TRAM50TA2 PO
[2018-09-13 14:25] VITALS: Ht 154.9 cm; Wt 117.0 kg
--- NOTE | 2018-09-13 16:14 | ERD ---
ER Documentation Chief Complaint Chief Complaint VAGINAL BLEEDING INTERMITTENTLY X 3-4 MONTHS, SHERLEY PREG HPI This is a 28-year-old female, who presents to ED with complaints of vaginal bleeding times 4 months. Patient states that she normally starts her menses on the 16th of each month. Patient states that she has had somewhat consistent bleeding over the past 4 months and states that the menses stopped yesterday but restarted today. Patient has a history of tubal ligation. Patient is scheduled to see FLEET SERVICE MANAGER specialist but is waiting on referral. Denies fever, chills, vaginal pain, blurry vision, changes in vision, nausea, vomiting, diarrhea, cuts patient, dysuria, hematuria. Admits to some lower pelvic discomfort. ROS All systems reviewed and are negative except as per history of present illness. Medications Home Meds Active Scripts Cephalexin* (Keflex*) 500 Mg Capsule, 500 MG PO BID for 7 Days, CAP Prov:ADRIAN HUBER PA-C 09/13/18 Medroxyprogesterone Acetate* (Provera*) 10 Mg Tablet, 10 MG PO DAILY for 5 Days, TAB Prov:ADRIAN HUBER PA-C 09/13/18 Hydrocortisone* Topical (Hydrocortisone* Topical) 2.5%-28.3 Gm Cream..g., 1 APPLIC TOP BID, #1 TUB Prov:SAMUEL CARNEY PA-C 06/30/18 Fluticasone Propionate (Flonase Allergy Relief) 9.9 Ml [place].susp, 2 SPRAY NASAL DAILY, #1 BOTTLE TO EACH NOSTRIL Prov:SAMUEL CARNEY PA-C 06/30/18 Cetirizine Hcl* (Zyrtec*) 10 Mg Capsule, 10 MG PO DAILY, #12 TAB.CHEW Prov:SAMUEL CARNEY PA-C 06/30/18 Guaifenesin-Dextromethorphan* (Robitussin* DM) 100MG/10MG/5ML Syrup, 10 ML PO Q6H PRN for COUGH for 5 Days, ML Prov:SAMUEL CARNEY PA-C 06/30/18 Acetaminophen* (Tylophen*) 500 Mg Capsule, 1 CAP PO Q6H PRN for PAIN AND OR ELEVATED TEMP, #20 CAP Prov:YUE WESTFALL NP 05/10/18 Cetirizine Hcl* (Zyrtec*) 10 Mg Capsule, 10 MG PO DAILY, #30 TAB.CHEW Prov:YUE WESTFALL NP 05/10/18 Amoxicillin* (Amoxicillin*) 500 Mg Cap, 500 MG PO TID for 10 Days, CAP Prov:YUE WESTFALL NP 05/10/18 Docusate Sodium* (Colace*) 100 Mg Capsule, 100 MG PO TID, #30 CAP Prov:YUE WESTFALL PRODUCTION SUPERVISOR 01/31/18 Ferrous Sulfate* (Ferrous Sulfate*) 325 Mg Tabec, 325 MG PO BID, #60 TAB Prov:YUE WESTFALL NP 01/31/18 Tramadol HCl (Tramadol HCl) 50 Mg Tablet, 50 MG PO Q6 PRN for SEVERE PAIN LEVEL 7-10, #20 TAB Prov:YUE WESTFALL NP 01/31/18 Acetaminophen* (Tylenol*) 325 Mg Tablet, 2 TAB PO Q6, #30 TAB Prov:ABHINAV CABA PA-C 12/05/17 Cyclobenzaprine Hcl* (Cyclobenzaprine Hcl*) 10 Mg Tablet, 10 MG PO TID, #15 TAB Prov:DESHAUN MERCER NP 11/22/17 Naproxen* (Naprosyn*) 500 Mg Tablet, 500 MG PO BID PRN for PAIN AND/OR INFLAMMATION, #30 TAB Prov:DESHAUN MERCER NP 11/22/17 Tramadol HCl (Tramadol HCl) 50 Mg Tablet, 50 MG PO Q6 PRN for SEVERE PAIN LEVEL 7-10, #20 TAB Prov:YUE WESTFALL NP 09/06/17 Acetaminophen* (Tylophen*) 500 Mg Capsule, 1 CAP PO Q6H PRN for PAIN AND OR ELEVATED TEMP, #20 CAP Prov:YUE WESTFALL NP 09/06/17 Prednisone* (Prednisone*) 20 Mg Tab, 60 MG PO DAILY for 5 Days, TAB Prov:JULIET SANTIAGO DO 07/14/17 Albuterol Sulfate* (Proair HFA*) 8.5 Gm Hfa.aer.ad, 2 PUFF INH Q4, #1 INHALER Prov:JULIET SANTIAGOEbenezer DO 07/14/17 Ciprofloxacin Hcl* (Ciprofloxacin Hcl*) 500 Mg Tablet, 500 MG PO BID for 7 Days, #14 TAB Prov:CHIRAG OZUNA PA-C 06/12/17 Nitrofurantoin Monohyd Macrocr* (Macrobid*) 100 Mg Capsr, 100 MG PO BID for 5 Days, CAP Prov:APARNA SANCHEZ PA-C 03/31/17 Metformin* (Glucophage* XR) 500 Mg Tab.sr.24h, 500 MG PO BID WITH MEALS, #120 6 Refills Prov:CHIQUITA LOMBARDI MD 02/17/17 Reported Medications Ferrous Sulfate (Iron) 325 Mg Capsule.er, 325 MG PO, CAP 10/08/16 Multivit/Min/Fol Ac/Iron/Pren* ( S*) 1 Tab Tab, 1 TAB PO DAILY, TAB 10/08/16 Allergies Allergies: Coded Allergies: ibuprofen (Verified Allergy, Severe, blisters in mouth, 06/30/18) oxycodone (Verified Allergy, Severe, itching, 06/30/18) PMhx/Soc History of Surgery: Yes (C Section x3) Anesthesia Reaction: No Hx Neurological Disorder: No Hx Respiratory Disorders: Yes (ASTHMA ) Hx Cardiac Disorders: No Hx Psychiatric Problems: Yes (DEPRESSION) Hx Miscellaneous Medical Probl: Yes (-INDUCED HTN, HYPOTHYROIDISM) Hx Alcohol Use: No Hx Substance Use: No Hx Tobacco Use: No FmHx Family History: No diabetes Physical Exam Vitals Vital Signs Date Temp Pulse Resp B/P (MAP) Pulse Ox O2 O2 Flow FiO2 Time Delivery Rate 09/13/18 98.6 104 16 139/85 98 14:25 (103) Physical Exam Physical Exam Vitals signs: Reviewed by me. General: Well developed, well nourished, in no acute distress. Patient is awake and alert. Head: Normocephalic, atraumatic. Eyes: Normal conjunctiva, Pupils PERRLA, EOM intact grossly ENT: Pharynx is clear, Moist mucous membranes, external ears, nose and mouth normal Neck: Supple, no masses, lymphadenopathy or JVD Respiratory: Clear to auscultation bilaterally with no wheezing, rhonchi, rales, no distress Cardiovascular: RRR, no murmurs, rubs, or gallops Abdominal: Soft, obese, no peritoneal signs, no rigidity, no surgical abdomen, bowel sounds present all 4 quadrants, nontender light deep palpation all 4 quadrants, McBurney's point nontender, no rebound tenderness, no suprapubic tenderness, Navarro sign negative Back: No midline tenderness. No flank tenderness Neurologic: Alert and oriented, moving all extremities, normal speech, no focal weakness, no cerebellar signs. Normal mentation Skin: warm and dry, No rash Psych: Normal mood Result Diagram: 09/13/18 1537 09/13/18 1537 Results 24 hrs Laboratory Tests Test 09/13/18 15:37 09/13/18 15:39 White Blood Count 8.8 10^3/ul Red Blood Count 4.49 10^6/ul Hemoglobin 11.2 g/dl Hematocrit 36.3 % Mean Corpuscular Volume 80.8 fl Mean Corpuscular Hemoglobin 24.9 pg Mean Corpuscular Hemoglobin Concent 30.9 g/dl Red Cell Distribution Width 14.2 % Platelet Count 331 10^3/UL Mean Platelet Volume 9.2 fl Immature Granulocytes % 0.300 % Neutrophils % 59.1 % Lymphocytes % 34.2 % Monocytes % 4.9 % Eosinophils % 1.4 % Basophils % 0.1 % Nucleated Red Blood Cells % 0.0 /100WBC Immature Granulocytes # 0.030 10^3/ul Neutrophils # 5.2 10^3/ul Lymphocytes # 3.0 10^3/ul Monocytes # 0.4 10^3/ul Eosinophils # 0.1 10^3/ul Basophils # 0.0 10^3/ul Nucleated Red Blood Cells # 0.0 10^3/ul Urine Color VISHAL Urine Clarity CLOUDY Urine pH 5.0 Urine Specific [place] 1.031 Urine Ketones NEGATIVE mg/dL Urine Nitrite NEGATIVE mg/dL Urine Bilirubin NEGATIVE mg/dL Urine Urobilinogen NEGATIVE mg/dL Urine Leukocyte Esterase 1+ Mario/ul Urine Microscopic RBC > 182 /HPF Urine Microscopic WBC > 182 /HPF Urine Squamous Epithelial Cells FEW /HPF Urine Bacteria FEW /HPF Urine Hemoglobin 3+ mg/dL Urine Glucose NEGATIVE mg/dL Urine Total Protein 2+ mg/dl Sodium Level 142 mmol/L Potassium Level 3.9 mmol/L Chloride Level 102 mmol/L Carbon Dioxide Level 31 mmol/L Anion Gap 9 Blood Urea Nitrogen 14 mg/dl Creatinine 0.69 mg/dl Est Glomerular Filtrat Rate mL/min > 60 mL/min Glucose Level 132 mg/dl Calcium Level 9.2 mg/dl POC Beta HCG, Qualitative NEGATIVE Procedures/MDM EKG, MONITORS, & DIAGNOSTIC IMAGING: [place] [id number] Radiology Main Line: [phone] DIAGNOSTIC IMAGING REPORT Patient: MATILDA DAWN : 1990 Age: 28 Sex: F MR #: [id number] DOS: 09/13/18 1521 Ordering MD: ADRIAN HUBER PA-C Location: [facility] Room/Bed: PROCEDURE: US Pelvis. CLINICAL INDICATION: Vaginal bleeding TECHNIQUE: Multiple sonographic images of the pelvis were obtained utilizing transabdominal and endovaginal technique. The images were reviewed on a PACS workstation. COMPARISON: 01/30/2018 FINDINGS: The study is limited due to the patient's body habitus. The uterus is normal in size with a heterogeneous appearance of the myometrium. The uterus measures 8.7 cm. There are Nabothian cysts in the cervix. The endometrial stripe is has the thickness of 19 mm. There are tiny cystic structures within the endometrium. Normal Doppler flow is identified in both ovaries. The right ovary is not well seen. The right ovary measures 2.5 x 1.4 x 2.3 cm. The left ovary measures 2.1 x 2.1 x 1.9 cm. No free fluid is present within the pelvis. RPTAT: AA IMPRESSION: Thickened endometrium with tiny cystic structures. No adnexal masses are seen. Limited study due to the patient's body habitus. Further evaluation with MRI of the pelvis with contrast is recommended. .Nas Juarez MD, Date Time Electronically viewed and signed by .Nas Juarez MD, MD on 09/13/2018 16:29 .S/ CC: ADRIAN HUBER PA-C [phone] labs CBC remarkable for decreased hemoglobin of 11.2 and a decreased hematocrit of 36.3, no evidence of infection Chemistry shows no evidence of significant electrolyte abnormalities or renal insufficiency Urine negative Urinalysis remarkable for greater than 182 WBCs, greater than 182 RBCs, leukocyte esterase 1+ ER COURSE: The patient was stable throughout ED course. I kept the patient and/or family informed of laboratory and diagnostic imaging results throughout the emergency room course. The patient was promptly evaluated and a treatment plan was devised based on H&P and other data. This plan was discussed with the patient who agreed and had no further questions or concerns prior to discharge. MEDICAL DECISION MAKING: This is a 28-year-old female, who presents ED with complaints of prolonged menstrual bleeding that is been intermittent over the past 3-4 months. Differential diagnosis includes but is not limited to menorrhagia, dysfunctional uterine bleeding, fibroid, uterine polyps, inflammatory disease, ruptured ovarian cyst, among others. Ultrasound of pelvis shows thickened endometrium but is otherwise unremarkable. Given patient's history and physical examination this is likely dysfunctional uterine bleeding. Patient was advised to follow-up with gynecologic specialist in the next 48 hours. Patient also did have a lot of white blood cells in her urine, will treat for UTI. At this time there is no gynecologic emergency. No evidence of sepsis, obstructive pyelonephritis, ovarian torsion, PID, tubo-ovarian abscess, ectopic . Vitals are stable, patient is hemodynamically stable and patient be managed close outpatient follow-up. Advised patient follow-up with primary care next 48 hours. Return to ED with any worsening symptoms DISPOSITION PLAN: We discussed follow up with the patient's primary care doctor within 24 to 48 hours. Patient counseled regarding my diagnostic impression and care plan. Prior to discharge all questions answered. Pt agrees with treatment plan and understands strict return precautions. Precautionary instructions provided including instructions to return to the ER if not improving or for any worsening or changing symptoms or concerns. SPECIALIST FOLLOW UP RECOMMENDED: None Patient has been advised to follow up with primary care in 1-2 days. Disclaimer: Inadvertent spelling and grammatical errors are likely due to EHR/dictation software use and do not reflect on the overall quality of patient care. Also, please note that the electronic time recorded on this note does not necessarily reflect the actual time of the patient encounter. Departure Diagnosis: Primary Impression: Menorrhagia Menorrahagia type: with irregular cycle Qualified Codes: N92.1 - Excessive and frequent menstruation with irregular cycle Additional Impression: UTI (urinary tract infection) Urinary tract infection type: site unspecified Hematuria presence: without hematuria Qualified Codes: N39.0 - Urinary tract infection, site not specified Condition: Stable Patient Instructions: Dysfunctional Uterine Bleeding, Menorrhagia, Understanding Urinary Tract Infections (UTIs) Referrals: FLEET SERVICE MANAGER REFERRAL LIST Additional Instructions: Patient advised to return to the ED immediately for new or worsening symptoms. Patient advised to follow up with primary care provider in the next 24-48 hours. Patient verbalized understanding and agrees with treatment plan and course of action. If patient has no primary care they may follow up with one of the community clinics listed on the following page or one of the options listed below [facility] + [address] [address] or [facility] [address] [place] [address] [address] ADRIAN HUBER PA-C Sep 13, 2018 16:14
[2018-09-13] MEDS ORDERED: MEDR10TA2 PO (16:38)
[2018-09-13] MEDS ORDERED: CEPH-443 PO (16:39)
[2018-09-13 16:49] VITALS: BP 136/75; PULSE 78; RESP 16
== END 2018-09-13 16:50 | disposition home or self-care (01) ==
LOC: FTE 14:23
DX: N92.1 Excessive and frequent menstruation with irregular cycle (principal); N39.0 Urinary tract infection, site not specified; J45.909 Unspecified asthma, uncomplicated; E03.9 Hypothyroidism, unspecified; R10.2 Pelvic and perineal pain; Z79.84 Long term (current) use of oral hypoglycemic drugs
CPT/HCPCS: 36415; 76830; 76856; 80048; 81001; 81025; 85025; 87086; Z7502

== ENCOUNTER 2018-10-07 22:44 | Emergency (ER) | payer OTHER ==
[~2018-10-07] VITALS: Ht 154.9 cm; Wt 114.4 kg
[~2018-10-07 22:44] MED LIST changes: +CEPH-443 PO; +MEDR10TA2 PO
[2018-10-07 22:49] VITALS: Ht 154.9 cm; Wt 114.4 kg
--- NOTE | 2018-10-08 00:44 | ERD ---
ER Documentation Chief Complaint Chief Complaint on/off vag bleed w/clots x a yr; worst today, on diapers HPI This is a 28-year-old female who presents emergency department with complaints of pelvic pain and vaginal bleeding that is on and off for about a year. Stated that she is on Depo-Provera. A0. Has history of x3. Denies headache, dizziness, blurred vision, neck pain, neck stiffness, difficulty fungal difficult breathing lying flat, shoulder pain, chest pain, back pain, constipation, diarrhea, dysuria, or possibility being , vaginal yellowish discharge, trauma, injury, falls, difficulty walking, recent travel, recent long travel, recent exposure to any illness, recent antibiotic use in the restroom, fever, chills, seizures. ROS All systems reviewed and are negative except as per history of present illness. Medications Home Meds Active Scripts Cephalexin* (Keflex*) 500 Mg Capsule, 500 MG PO QID for 5 Days, CAP Prov:GREYSON GROVER F 10/08/18 Acetaminophen* (Tylophen*) 500 Mg Capsule, 1 CAP PO Q6H PRN for PAIN AND OR ELEVATED TEMP, #20 CAP Prov:KAMILAILAGREYSON RICK F 10/08/18 Norethindrone-E.estradiol-Iron ([place] 1 mg-20 Mcg Capsule) 1 Each Capsule, 1 EACH PO DAILY, #30 CAP Prov:KAMILAILAGREYSON RICK F 10/08/18 Ferrous Sulfate* (Ferrous Sulfate*) 325 Mg Tabec, 325 MG PO BID for 60 Days, TAB Prov:GREYSON GROVER F 10/08/18 Cephalexin* (Keflex*) 500 Mg Capsule, 500 MG PO BID for 7 Days, CAP Prov:ADRIAN HUBER PA-C 09/13/18 Medroxyprogesterone Acetate* (Provera*) 10 Mg Tablet, 10 MG PO DAILY for 5 Days, TAB Prov:ADRIAN HUBER PA-C 09/13/18 Hydrocortisone* Topical (Hydrocortisone* Topical) 2.5%-28.3 Gm Cream..g., 1 APPLIC TOP BID, #1 TUB Prov:SAMUEL CARNEY PA-C 06/30/18 Fluticasone Propionate (Flonase Allergy Relief) 9.9 Ml [place].susp, 2 SPRAY NASAL DAILY, #1 BOTTLE TO EACH NOSTRIL Prov:SAMUEL CARNEY PA-C 06/30/18 Cetirizine Hcl* (Zyrtec*) 10 Mg Capsule, 10 MG PO DAILY, #12 TAB.CHEW Prov:SAMUEL CARNEY PA-C 06/30/18 Guaifenesin-Dextromethorphan* (Robitussin* DM) 100MG/10MG/5ML Syrup, 10 ML PO Q6H PRN for COUGH for 5 Days, ML Prov:SAMUEL CARNEY PA-C 06/30/18 Acetaminophen* (Tylophen*) 500 Mg Capsule, 1 CAP PO Q6H PRN for PAIN AND OR ELEVATED TEMP, #20 CAP Prov:YUE WESTFALL NP 05/10/18 Cetirizine Hcl* (Zyrtec*) 10 Mg Capsule, 10 MG PO DAILY, #30 TAB.CHEW Prov:YUE WESTFALL NP 05/10/18 Amoxicillin* (Amoxicillin*) 500 Mg Cap, 500 MG PO TID for 10 Days, CAP Prov:UYE WESTFALL NP 05/10/18 Docusate Sodium* (Colace*) 100 Mg Capsule, 100 MG PO TID, #30 CAP Prov:YUE WESTFALL DRILLING SUPERINTENDENT 01/31/18 Ferrous Sulfate* (Ferrous Sulfate*) 325 Mg Tabec, 325 MG PO BID, #60 TAB Prov:YUE WESTFALL NP 01/31/18 Tramadol HCl (Tramadol HCl) 50 Mg Tablet, 50 MG PO Q6 PRN for SEVERE PAIN LEVEL 7-10, #20 TAB Prov:YUE WESTFALL DRILLING SUPERINTENDENT 01/31/18 Acetaminophen* (Tylenol*) 325 Mg Tablet, 2 TAB PO Q6, #30 TAB Prov:ABHINAV CABA PA-C 12/05/17 Cyclobenzaprine Hcl* (Cyclobenzaprine Hcl*) 10 Mg Tablet, 10 MG PO TID, #15 TAB Prov:DESHAUN MERCER NP 11/22/17 Naproxen* (Naprosyn*) 500 Mg Tablet, 500 MG PO BID PRN for PAIN AND/OR INFLAMMATION, #30 TAB Prov:RUSLANDESHAUN Charles DRILLING SUPERINTENDENT 11/22/17 Tramadol HCl (Tramadol HCl) 50 Mg Tablet, 50 MG PO Q6 PRN for SEVERE PAIN LEVEL 7-10, #20 TAB Prov:YUE WESTFALL DRILLING SUPERINTENDENT 09/06/17 Acetaminophen* (Tylophen*) 500 Mg Capsule, 1 CAP PO Q6H PRN for PAIN AND OR ELEVATED TEMP, #20 CAP Prov:YUE WESTFALL DRILLING SUPERINTENDENT 09/06/17 Prednisone* (Prednisone*) 20 Mg Tab, 60 MG PO DAILY for 5 Days, TAB Prov:JAMAICA SANTIAGOSTOLOS A. DO 07/14/17 Albuterol Sulfate* (Proair HFA*) 8.5 Gm Hfa.aer.ad, 2 PUFF INH Q4, #1 INHALER Prov:JAMAICA SANTIAGOSTOLOS A. DO 07/14/17 Ciprofloxacin Hcl* (Ciprofloxacin Hcl*) 500 Mg Tablet, 500 MG PO BID for 7 Days, #14 TAB Prov:CHIRAG OZUNA PA-C 06/12/17 Nitrofurantoin Monohyd Macrocr* (Macrobid*) 100 Mg Capsr, 100 MG PO BID for 5 Days, CAP Prov:APARNA SANCHEZ PA-C 03/31/17 Metformin* (Glucophage* XR) 500 Mg Tab.sr.24h, 500 MG PO BID WITH MEALS, #120 6 Refills Prov:CHIQUITA LOMBARDI MD 02/17/17 Reported Medications Ferrous Sulfate (Iron) 325 Mg Capsule.er, 325 MG PO, CAP 10/08/16 Multivit/Min/Fol Ac/Iron/Pren* ( S*) 1 Tab Tab, 1 TAB PO DAILY, TAB 10/08/16 Allergies Allergies: Coded Allergies: ibuprofen (Verified Allergy, Severe, blisters in mouth, 06/30/18) oxycodone (Verified Allergy, Severe, itching, 06/30/18) PMhx/Soc History of Surgery: Yes (C Section x3) Anesthesia Reaction: No Hx Neurological Disorder: No Hx Respiratory Disorders: Yes (ASTHMA ) Hx Cardiac Disorders: No Hx Psychiatric Problems: Yes (DEPRESSION) Hx Miscellaneous Medical Probl: Yes (-INDUCED HTN, HYPOTHYROIDISM) Hx Alcohol Use: No Hx Substance Use: No Hx Tobacco Use: No Smoking Status: Never smoker Physical Exam Vitals Vital Signs Date Temp Pulse Resp B/P (MAP) Pulse Ox O2 O2 Flow FiO2 Time Delivery Rate 10/08/18 98.5 89 18 108/60 96 Room Air 05:45 (76) 10/07/18 98.3 93 18 154/83 100 22:49 (106) Physical Exam Const: No acute distress Head: Atraumatic Eyes: Normal Conjunctiva ENT: Normal External Ears, Nose and Mouth. Neck: Full range of motion. No meningismus. Resp: Clear to auscultation bilaterally Cardio: Regular rate and rhythm, no murmurs Abd: Soft, non tender, non distended. Normal bowel sounds. Negative Navarro sign. Negative Ameya sign (heel jar test). Negative psoas sign. Negative Rovsing sign. No CVA tenderness. Ambulatory site and without pain to abdomen. Skin: No petechiae or rashes. Mild pale for appearance. Back: No midline or flank tenderness Ext: No cyanosis, or edema Neur: Awake and alert. No neurological deficits. Psych: Normal Mood and Affect Result Diagram: 10/08/185 10/08/1854 Results 24 hrs Laboratory Tests Test 10/08/18 00:55 10/08/18 01:05 White Blood Count 11.2 10^3/ul Red Blood Count 3.99 10^6/ul Hemoglobin 9.5 g/dl Hematocrit 31.6 % Mean Corpuscular Volume 79.2 fl Mean Corpuscular Hemoglobin 23.8 pg Mean Corpuscular Hemoglobin Concent 30.1 g/dl Red Cell Distribution Width 14.2 % Platelet Count 363 10^3/UL Mean Platelet Volume 8.8 fl Immature Granulocytes % 0.400 % Neutrophils % 52.5 % Lymphocytes % 40.4 % Monocytes % 5.1 % Eosinophils % 1.2 % Basophils % 0.4 % Nucleated Red Blood Cells % 0.0 /100WBC Immature Granulocytes # 0.040 10^3/ul Neutrophils # 5.9 10^3/ul Lymphocytes # 4.5 10^3/ul Monocytes # 0.6 10^3/ul Eosinophils # 0.1 10^3/ul Basophils # 0.0 10^3/ul Nucleated Red Blood Cells # 0.0 10^3/ul Prothrombin Time 12.2 Sec Prothrombin Time Ratio 1.0 INR International Normalized Ratio 0.89 Activated Partial Thromboplast Time 25.2 Sec Urine Color RED Urine Clarity SLIGHTLY CLOUDY Urine pH 6.0 Urine Specific [place] 1.023 Urine Ketones NEGATIVE mg/dL Urine Nitrite NEGATIVE mg/dL Urine Bilirubin NEGATIVE mg/dL Urine Urobilinogen NEGATIVE mg/dL Urine Leukocyte Esterase 1+ Mario/ul Urine Microscopic RBC > 182 /HPF Urine Microscopic WBC 22 /HPF Urine Bacteria FEW /HPF Urine Mucus FEW /HPF Urine Hemoglobin 3+ mg/dL Urine Glucose NEGATIVE mg/dL Urine Total Protein 1+ mg/dl Sodium Level 139 mmol/L Potassium Level 4.2 mmol/L Chloride Level 99 mmol/L Carbon Dioxide Level 29 mmol/L Anion Gap 11 Blood Urea Nitrogen 15 mg/dl Creatinine 0.63 mg/dl Est Glomerular Filtrat Rate mL/min > 60 mL/min Glucose Level 127 mg/dl Calcium Level 9.2 mg/dl Total Bilirubin 0.0 mg/dl Direct Bilirubin 0.00 mg/dl Indirect Bilirubin 0.0 mg/dl Aspartate Amino Transf (AST/SGOT) 16 IU/L Alanine Aminotransferase (ALT/SGPT) 28 IU/L Alkaline Phosphatase 85 IU/L Total Protein 7.7 g/dl Albumin 4.3 g/dl Globulin 3.40 g/dl Albumin/Globulin Ratio 1.26 Amylase Level 47 U/L Lipase 71 U/L POC Beta HCG, Qualitative NEGATIVE Current Medications Medications Dose Sig/Wendi Start Time Status Last (Trade) Ordered Route PRN Stop Time Admin Dose Reason Admin Sodium 1,000 ml @ Q1H ONCE 10/08/18 DC 10/08/18 Chloride 1,000 mls/hr IV 01:00 01:34 10/08/18 01:59 Procedures/MDM Diagnostic tests: Urine : Negative. Urinalysis: Reviewed. Culture urine: Sent. Blood works:reviewed. OB ultrasound: Thickened inhomogeneous endometrial stripe, with scattered hypoechoic spaces which are larger than previously and includes suggestion of a fluid level, perhaps representing blood products within. Given the persistent or recurrent thickening, findings would raise concern for endometrial based lesion or abnormality. Further workup is again advised, which should include gynecologic evaluation or referral to over see further management, and further imaging workup could include pelvic MRI without and with contrast on a follow-up basis. Nonvisualization of the left ovary, which was normal on the previous exam. Treatment: Saline lock. Normal saline IV bolus. Re-evaluation: Denies active bleeding. Differential diagnosis I have low suspicion for severe anemia, hemorrhaging. Discussed with Dr. Martin who recommends outpatient and put the patient on control pills. Final diagnosis: Uterine fibroid. Anemia. Prescription: Ferrous sulfate. Tylenol. control pills. Follow-up with PCP in the next 24-48 hours. Follow-up with your bill peddler in the next 24-48 hours. Come back here in the emergency department for any new symptoms or any worsening symptoms. All questions and concerns were answered. Patient and family members verbalized understanding and agreed with plan of care. Hemodynamically stable on discharge. Departure Diagnosis: Primary Impression: Vaginal bleeding Additional Impression: Metrorrhagia Condition: Stable Additional Instructions: Follow-up with PCP in the next 24-48 hours. Follow-up with your bill peddler in the next 24-48 hours. Come back here in the emergency department for any new symptoms or any worsening symptoms. GREYSON GROVER Oct 08, 2018 00:44
[2018-10-08] MEDS ORDERED: SOD CHLORIDE 0.9% 1,000 ML IV ONE (01:00)
[2018-10-08] MEDS ORDERED: FER325 PO (05:25)
[2018-10-08] MEDS ORDERED: NORE1CAP PO (05:30)
[2018-10-08] MEDS ORDERED: ACET500C5 PO (05:31)
[2018-10-08] MEDS ORDERED: CEPH-443 PO (05:32)
[2018-10-08 05:45] VITALS: BP 108/60; PULSE 89; RESP 18
== END 2018-10-08 05:48 | disposition home or self-care (01) ==
LOC: FTE 22:44
DX: N93.9 Abnormal uterine and vaginal bleeding, unspecified (principal); N92.1 Excessive and frequent menstruation with irregular cycle; J45.909 Unspecified asthma, uncomplicated; E03.9 Hypothyroidism, unspecified; R10.2 Pelvic and perineal pain; Z79.84 Long term (current) use of oral hypoglycemic drugs
CPT/HCPCS: 76830; 76856; 80053; 81001; 81025; 82150; 83690; 85025; 85610; 85730; 87086; J7030; Z7502

== ENCOUNTER 2018-12-21 20:14 | Emergency (ER) | payer OTHER ==
[~2018-12-21] VITALS: Wt 117.1 kg
[~2018-12-21 20:14] MED LIST changes: +NORE1CAP PO
[2018-12-21] MEDS ORDERED: ACETAMINOPHEN 500 MG TAB PO STA (22:18)
--- NOTE | 2018-12-21 22:50 | ERD ---
ER Documentation Chief Complaint Chief Complaint ALONSO X'S 4 DAYS S/P HIT IN HEAD WITH TOY CAR HPI 28-year-old female presents with complaint of headache after getting hit with a toy car in her head 4 days ago. States that the pain is currently 5 out of 10. Not taking any treatments. Denies any chance of . Denies amnesia, loss of consciousness, vomiting, numbness, weakness, or, severe headache. Denies any vision problems, flank pain, dysuria, hematuria, chest pain. ROS All systems reviewed and are negative except as per history of present illness. Medications Home Meds Active Scripts Cephalexin* (Keflex*) 500 Mg Capsule, 500 MG PO QID for 5 Days, CAP Prov:KAMILAILAGREYSON RICK 10/08/18 Acetaminophen* (Tylophen*) 500 Mg Capsule, 1 CAP PO Q6H PRN for PAIN AND OR ELEVATED TEMP, #20 CAP Prov:GREYSON GROVER 10/08/18 Norethindrone-E.estradiol-Iron (Taytulla 1 mg-20 Mcg Capsule) 1 Each Capsule, 1 EACH PO DAILY, #30 CAP Prov:GREYSON GROVER 10/08/18 Ferrous Sulfate* (Ferrous Sulfate*) 325 Mg Tabec, 325 MG PO BID for 60 Days, TAB Prov:GREYSON GROVER 10/08/18 Cephalexin* (Keflex*) 500 Mg Capsule, 500 MG PO BID for 7 Days, CAP Prov:ADRIAN HUBER PA-C 09/13/18 Medroxyprogesterone Acetate* (Provera*) 10 Mg Tablet, 10 MG PO DAILY for 5 Days, TAB Prov:ADRIAN HUBER PA-C 09/13/18 Hydrocortisone* Topical (Hydrocortisone* Topical) 2.5%-28.3 Gm Cream..g., 1 APPLIC TOP BID, #1 TUB Prov:SAMUEL CARNEY PA-C 06/30/18 Fluticasone Propionate (Flonase Allergy Relief) 9.9 Ml [place].susp, 2 SPRAY NASAL DAILY, #1 BOTTLE TO EACH NOSTRIL Prov:SAMUEL CARNEY PA-C 06/30/18 Cetirizine Hcl* (Zyrtec*) 10 Mg Capsule, 10 MG PO DAILY, #12 TAB.CHEW Prov:SAMUEL CARNEY PA-C 06/30/18 Guaifenesin-Dextromethorphan* (Robitussin* DM) 100MG/10MG/5ML Syrup, 10 ML PO Q6H PRN for COUGH for 5 Days, ML Prov:SAMUEL CARNEY PA-C 06/30/18 Acetaminophen* (Tylophen*) 500 Mg Capsule, 1 CAP PO Q6H PRN for PAIN AND OR ELEVATED TEMP, #20 CAP Prov:YUE WESTFALL NP 05/10/18 Cetirizine Hcl* (Zyrtec*) 10 Mg Capsule, 10 MG PO DAILY, #30 TAB.CHEW Prov:YUE WESTFALL NP 05/10/18 Amoxicillin* (Amoxicillin*) 500 Mg Cap, 500 MG PO TID for 10 Days, CAP Prov:YUE WESTFALL NP 05/10/18 Docusate Sodium* (Colace*) 100 Mg Capsule, 100 MG PO TID, #30 CAP Prov:YUE WESTFALL NP 01/31/18 Ferrous Sulfate* (Ferrous Sulfate*) 325 Mg Tabec, 325 MG PO BID, #60 TAB Prov:YUE WESTFALL NP 01/31/18 Tramadol HCl (Tramadol HCl) 50 Mg Tablet, 50 MG PO Q6 PRN for SEVERE PAIN LEVEL 7-10, #20 TAB Prov:YUE WESTFALL NP 01/31/18 Acetaminophen* (Tylenol*) 325 Mg Tablet, 2 TAB PO Q6, #30 TAB Prov:ABHINAV CABA PA-C 12/05/17 Cyclobenzaprine Hcl* (Cyclobenzaprine Hcl*) 10 Mg Tablet, 10 MG PO TID, #15 TAB Prov:DESHAUN MERCER NP 11/22/17 Naproxen* (Naprosyn*) 500 Mg Tablet, 500 MG PO BID PRN for PAIN AND/OR INFLAMMATION, #30 TAB Prov:DESHAUN MERCER SECURITY DOOR INSTALLER 11/22/17 Tramadol HCl (Tramadol HCl) 50 Mg Tablet, 50 MG PO Q6 PRN for SEVERE PAIN LEVEL 7-10, #20 TAB Prov:YUE WESTFALL NP 09/06/17 Acetaminophen* (Tylophen*) 500 Mg Capsule, 1 CAP PO Q6H PRN for PAIN AND OR ELEVATED TEMP, #20 CAP Prov:YUE WESTFALL NP 09/06/17 Prednisone* (Prednisone*) 20 Mg Tab, 60 MG PO DAILY for 5 Days, TAB Prov:CLEMENTINALETICIAJAMAICA COVINGTONSTOLOS A. DO 07/14/17 Albuterol Sulfate* (Proair HFA*) 8.5 Gm Hfa.aer.ad, 2 PUFF INH Q4, #1 INHALER Prov:JAMAICA SANTIAGOSTOLOS A. DO 07/14/17 Ciprofloxacin Hcl* (Ciprofloxacin Hcl*) 500 Mg Tablet, 500 MG PO BID for 7 Days, #14 TAB Prov:CHIRAG OZUNA PA-C 06/12/17 Nitrofurantoin Monohyd Macrocr* (Macrobid*) 100 Mg Capsr, 100 MG PO BID for 5 Days, CAP Prov:APARNA SANCHEZ PA-C 03/31/17 Metformin* (Glucophage* XR) 500 Mg Tab.sr.24h, 500 MG PO BID WITH MEALS, #120 6 Refills Prov:CHIQUITA LOMBARDI MD 02/17/17 Reported Medications Ferrous Sulfate (Iron) 325 Mg Capsule.er, 325 MG PO, CAP 10/08/16 Multivit/Min/Fol Ac/Iron/Pren* ( S*) 1 Tab Tab, 1 TAB PO DAILY, TAB 10/08/16 Allergies Allergies: Coded Allergies: ibuprofen (Verified Allergy, Severe, blisters in mouth, 06/30/18) oxycodone (Verified Allergy, Severe, itching, 06/30/18) PMhx/Soc History of Surgery: Yes (C Section x3) Anesthesia Reaction: No Hx Neurological Disorder: No Hx Respiratory Disorders: Yes (ASTHMA ) Hx Cardiac Disorders: No Hx Psychiatric Problems: Yes (DEPRESSION) Hx Miscellaneous Medical Probl: Yes (-INDUCED HTN, HYPOTHYROIDISM) Hx Alcohol Use: No Hx Substance Use: No Hx Tobacco Use: No Smoking Status: Never smoker FmHx Family History: No diabetes, No coronary disease, No other Physical Exam Vitals Vital Signs Date Temp Pulse Resp B/P (MAP) Pulse Ox O2 O2 Flow FiO2 Time Delivery Rate 12/21/18 99.5 108 18 199/92 98 20:21 (127) Physical Exam General: Well developed, well nourished. No acute distress. Head: Atraumatic. No hematomas, ambriz sign, raccoon eyes, or other signs of fracture. Eyes: PERRLA. No icterus, lesions, injection, or edema. Ears: No hematotympanum Nose: No rhinorrhea Neck: Full range of motion with no midline tenderness to palpation. Heart: RR w/o murmur, rubs, or gallops. Lungs: Clear to auscultation bilaterally w/o wheezes, crackles, rhonchi. Symmetric rise and fall. Equal breath sounds. Extremities: 5/5 strength and full ROM of upper and lower extremeties bilaterally. Distal sensation and pulses intact. Normal cap refill. Neuro: CN II through XII intact. Rapid alternating movement intact. No cerebellar or gait deficits. Strength and sensation intact. Alert and oriented x3. Psych: Normal mood and affect. Results 24 hrs Current Medications Medications Dose Sig/Wendi Start Time Status Last (Trade) Ordered Route PRN Stop Time Admin Dose Reason Admin 500 mg ONCE STAT 12/21/18 DC Acetaminophen PO 22:18 12/21/18 (Tylenol 22:20 Tab) Procedures/MDM MDM: Patient's neuro exam was within normal limits. In addition patient denied severe headache, loss of consciousness, amnesia. Therefore, I feel that CT is unnecessary. I have low suspicion for intracranial hemorrhage, elevated intracranial pressure, intracranial mass, aneurysm, meningitis, malignant hypertension, giant cell arteritis, carotid dissection, intracranial abscess, cerebral venous thrombosis, CO2 poisoning, or other emergent causes of headache based on patients history and exam. Regarding patient's hypertension, patient was advised to follow-up with primary care provider as she is not currently taking any hypertension medication. Advised to return to ER if there is worsening symptoms or vomiting. Patient discharged with strict ER precautions. Patient advised to follow up with PMD. All questions answered at discharge. Departure Diagnosis: Primary Impression: Head trauma Encounter type: initial encounter Qualified Codes: S09.90XA - Unspecified injury of head, initial encounter Additional Impression: Headache Headache type: post-traumatic Headache chronicity pattern: acute headache Intractability: not intractable Qualified Codes: G44.319 - Acute post- traumatic headache, not intractable Condition: Stable CHIRAG ANDERSON 1, 2019 22:31
[2018-12-21] MEDS ORDERED: ACET500C5 PO (22:52)
[2018-12-21 23:03] VITALS: BP 134/90; PULSE 94; RESP 16
== END 2018-12-21 23:04 | disposition home or self-care (01) ==
LOC: FTE 20:14
DX: S09.90XA Unspecified injury of head, initial encounter (principal); E03.9 Hypothyroidism, unspecified; W22.8XXA Striking against or struck by other objects, initial encounter; Y92.9 Unspecified place or not applicable
CPT/HCPCS: 81025; Z7502; Z7610; 99282

== ENCOUNTER 2019-01-01 16:37 | Emergency (ER) | payer OTHER ==
[~2019-01-01] VITALS: Ht 160 cm; Wt 118.1 kg
[2019-01-01 16:43] VITALS: Ht 160 cm; Wt 118.1 kg
[2019-01-01] MEDS ORDERED: ACETAMINOPHEN 325 MG TAB PO ONE (17:30)
[2019-01-01] MEDS ORDERED: ACET325T33 PO (19:27)
[2019-01-01 19:59] VITALS: BP 124/80; PULSE 81; RESP 16
--- NOTE | 2019-01-01 20:12 | ERD ---
ER Documentation Chief Complaint Chief Complaint left leg internal pain and weakness x4 days, fell 3x HPI 28-year-old female with no significant past medical history presenting to the emergency department complaining of right knee pain intermittently for the past 4 days. She states her knee "gives out" every time she puts pressure on her leg. Symptoms are moderate in severity. She took no medication for relief of symptoms. She denies any other symptoms currently. ROS All systems reviewed and are negative except as per history of present illness. Medications Home Meds Active Scripts Acetaminophen* (Tylenol*) 325 Mg Tablet, 2 TAB PO Q6 PRN for PAIN AND OR ELEVATED TEMP, #20 TAB Prov:CHIRAG OZUNA PA-C 01/01/19 Acetaminophen* (Tylophen*) 500 Mg Capsule, 1 CAP PO Q6H PRN for PAIN AND OR ELEVATED TEMP, #20 CAP Prov:CHIRAG ANDERSON 12/21/18 Cephalexin* (Keflex*) 500 Mg Capsule, 500 MG PO QID for 5 Days, CAP Prov:KAMILALORETAGREYSON F 10/08/18 Acetaminophen* (Tylophen*) 500 Mg Capsule, 1 CAP PO Q6H PRN for PAIN AND OR ELEVATED TEMP, #20 CAP Prov:GREYSON GROVER F 10/08/18 Norethindrone-E.estradiol-Iron (Taytulla 1 mg-20 Mcg Capsule) 1 Each Capsule, 1 EACH PO DAILY, #30 CAP Prov:GREYSON GROVER F 10/08/18 Ferrous Sulfate* (Ferrous Sulfate*) 325 Mg Tabec, 325 MG PO BID for 60 Days, TAB Prov:SALTYPRABHJOTSHIVCASS F 10/08/18 Cephalexin* (Keflex*) 500 Mg Capsule, 500 MG PO BID for 7 Days, CAP Prov:ADRIAN HUBER PA-C 09/13/18 Medroxyprogesterone Acetate* (Provera*) 10 Mg Tablet, 10 MG PO DAILY for 5 Days, TAB Prov:ADRIAN HUBER PA-C 09/13/18 Hydrocortisone* Topical (Hydrocortisone* Topical) 2.5%-28.3 Gm Cream..g., 1 APPLIC TOP BID, #1 TUB Prov:SAMUEL CARNEY PA-C 06/30/18 Fluticasone Propionate (Flonase Allergy Relief) 9.9 Ml [place].susp, 2 SPRAY NASAL DAILY, #1 BOTTLE TO EACH NOSTRIL Prov:SAMUEL CARNEY PA-C 06/30/18 Cetirizine Hcl* (Zyrtec*) 10 Mg Capsule, 10 MG PO DAILY, #12 TAB.CHEW Prov:SAMUEL CARNEY PA-C 06/30/18 Guaifenesin-Dextromethorphan* (Robitussin* DM) 100MG/10MG/5ML Syrup, 10 ML PO Q6H PRN for COUGH for 5 Days, ML Prov:SAMUEL CARNEY PA-C 06/30/18 Acetaminophen* (Tylophen*) 500 Mg Capsule, 1 CAP PO Q6H PRN for PAIN AND OR ELEVATED TEMP, #20 CAP Prov:YUE WESTFALL NP 05/10/18 Cetirizine Hcl* (Zyrtec*) 10 Mg Capsule, 10 MG PO DAILY, #30 TAB.CHEW Prov:YUE WESTFALL NP 05/10/18 Amoxicillin* (Amoxicillin*) 500 Mg Cap, 500 MG PO TID for 10 Days, CAP Prov:YUE WESTFALL NP 05/10/18 Docusate Sodium* (Colace*) 100 Mg Capsule, 100 MG PO TID, #30 CAP Prov:YUE WESTFALL NP 01/31/18 Ferrous Sulfate* (Ferrous Sulfate*) 325 Mg Tabec, 325 MG PO BID, #60 TAB Prov:YUE WESTFALL NP 01/31/18 Tramadol HCl (Tramadol HCl) 50 Mg Tablet, 50 MG PO Q6 PRN for SEVERE PAIN LEVEL 7-10, #20 TAB Prov:YUE WESTFALL NP 01/31/18 Acetaminophen* (Tylenol*) 325 Mg Tablet, 2 TAB PO Q6, #30 TAB Prov:ABHINAV CABA PA-C 12/05/17 Cyclobenzaprine Hcl* (Cyclobenzaprine Hcl*) 10 Mg Tablet, 10 MG PO TID, #15 TAB Prov:DESHAUN MERCER NP 11/22/17 Naproxen* (Naprosyn*) 500 Mg Tablet, 500 MG PO BID PRN for PAIN AND/OR INFLAMMATION, #30 TAB Prov:RUSLANDESHAUN Charles LUMP MACHINE OPERATOR 11/22/17 Tramadol HCl (Tramadol HCl) 50 Mg Tablet, 50 MG PO Q6 PRN for SEVERE PAIN LEVEL 7-10, #20 TAB Prov:YUE WESTFALL LUMP MACHINE OPERATOR 09/06/17 Acetaminophen* (Tylophen*) 500 Mg Capsule, 1 CAP PO Q6H PRN for PAIN AND OR [place]IB[place] VATED TEMP, #20 CAP Prov:YUE WESTFALL LUMP MACHINE OPERATOR 09/06/17 Prednisone* (Prednisone*) 20 Mg Tab, 60 MG PO DAILY for 5 Days, TAB Prov:JULIET SANTIAGO DO 07/14/17 Albuterol Sulfate* (Proair HFA*) 8.5 Gm Hfa.aer.ad, 2 PUFF INH Q4, #1 INHALER Prov:JULIET SANTIAGO DO 07/14/17 Ciprofloxacin Hcl* (Ciprofloxacin Hcl*) 500 Mg Tablet, 500 MG PO BID for 7 Days, #14 TAB Prov:CHIRAG OZUNA PA-C 06/12/17 Nitrofurantoin Monohyd Macrocr* (Macrobid*) 100 Mg Capsr, 100 MG PO BID for 5 Days, CAP Prov:APARNA SANCHEZ PA-C 03/31/17 Metformin* (Glucophage* XR) 500 Mg Tab.sr.24h, 500 MG PO BID WITH MEALS, #120 6 Refills Prov:CHIQUITA LOMBARDI MD 02/17/17 Reported Medications Ferrous Sulfate (Iron) 325 Mg Capsule.er, 325 MG PO, CAP 10/08/16 Multivit/Min/Fol Ac/Iron/Pren* ( S*) 1 Tab Tab, 1 TAB PO DAILY, TAB 10/08/16 Allergies Allergies: Coded Allergies: ibuprofen (Verified Allergy, Severe, blisters in mouth, 06/30/18) oxycodone (Verified Allergy, Severe, itching, 06/30/18) PMhx/Soc History of Surgery: Yes (C Section x3,tubal ligation) Anesthesia Reaction: No Hx Neurological Disorder: No Hx Respiratory Disorders: Yes (ASTHMA ) Hx Cardiac Disorders: No Hx Psychiatric Problems: Yes (DEPRESSION) Hx Miscellaneous Medical Probl: Yes (-INDUCED HTN,DM, HYPOTHYROIDISM) Hx Alcohol Use: No Hx Substance Use: No Hx Tobacco Use: No Smoking Status: Never smoker FmHx Family History: No diabetes Physical Exam Vitals Vital Signs Date Temp Pulse Resp B/P (MAP) Pulse Ox O2 O2 Flow FiO2 Time Delivery Rate 01/01/19 99.5 81 16 124/80 100 Room Air 19:59 (95) 01/01/19 99.5 96 18 138/84 98 16:43 (102) Physical Exam Const: No acute distress Head: Atraumatic Eyes: Normal Conjunctiva ENT: Normal External Ears, Nose and Mouth. Neck: Full range of motion. No meningismus. Resp: No respiratory distress. Skin: No petechiae or rashes Back: No midline or flank tenderness Ext: No cyanosis, or edema. Tenderness palpation of the right anterior knee. Slightly limited range of motion of the right knee secondary to pain. Negative anterior and posterior drawer test. Neur: Awake and alert Psych: Normal Mood and Affect Results 24 hrs Current Medications Medications Dose Sig/Wendi Start Time Status Last (Trade) Ordered Route PRN Stop Time Admin Dose Reason Admin 650 mg ONCE ONCE 01/01/19 DC 01/01/19 Acetaminophen PO 17:30 17:29 (Tylenol 01/01/19 17:31 Tab) Procedures/MDM 28-year-old female presenting to the emergency department complaining of right knee pain adamantly for the past 4 days. Examination was essentially unremarkable. X-ray was negative for any sign of fracture per radiology. Venous Doppler of the right lower extremity was negative for DVT per radiology. Patient required coy wrap for comfort.Splint Assessment: Neurovascularly intact post splint placement with good fit. Patient's extremity symptoms have stabilized while they have been evaluated in the department and are appropriate for outpatient follow up. No evidence of compartment syndrome, neurologic injury, vascular injury, open joint, open fracture, tendon laceration, or foreign body. No evidence of life- threatening pathology at time of discharge. Pt/family in agreement with discharge plan/diagnosis. Pt/family advised to return immediately with any new or worsening symptoms. Follow-up with primary care physician within the next 1- 2 days. Disclaimer: Inadvertent spelling and grammatical errors are likely due to EHR/dictation software use and do not reflect on the overall quality of patient care. Also, please note that the electronic time recorded on this note does not necessarily reflect the actual time of the patient encounter. Departure Diagnosis: Primary Impression: Right knee pain Condition: Fair Patient Instructions: Knee Pain, Uncertain Cause Additional Instructions: SPECIALIST: YOU HAVE A MEDICAL CONDITION WHICH REQUIRES YOU TO SEE A SPECIALIST WITHIN THE NEXT 1-2 DAYS. PLEASE FOLLOW UP WITH YOUR PRIMARY PHYSICIAN FOR REFFERAL.IF YOU DO NOT HAVE A PRIMARY CARE PHYSICIAN AND/OR YOU CAN NOT AFFORD TO SEE A PHYSICIAN THE FOLLOWING RESOURCES HAVE BEEN SUPPLIED TO YOU. IT IS YOUR RESPONSIBILITY TO BE SEEN BY THE SPECIALIST: ORTHOPEDICS CHIRAG OZUNA PA-C January 01, 2019 20:12
== END 2019-01-01 20:07 | disposition home or self-care (01) ==
LOC: FTE 16:37
DX: M25.561 Pain in right knee (principal); I10 Essential (primary) hypertension; E11.9 Type 2 diabetes mellitus without complications; E03.9 Hypothyroidism, unspecified; J45.909 Unspecified asthma, uncomplicated; Z79.84 Long term (current) use of oral hypoglycemic drugs
CPT/HCPCS: 73562; 93971; Z7502; Z7610

== ENCOUNTER 2019-02-10 19:52 | Emergency (ER) | payer OTHER ==
[~2019-02-10] VITALS: Ht 154.9 cm; Wt 116.8 kg
[2019-02-10 19:56] VITALS: Ht 154.9 cm; Wt 116.8 kg
--- NOTE | 2019-02-10 21:45 | ERD ---
ER Documentation Chief Complaint Chief Complaint buttock pain x2 days rad to legs HPI This is a 28-year-old female presents here in the emergency department with complaints of lower back pain that radiates to right lower extremity. LMP: Stated that it was a month ago. G3, . Denies headache, head injury, loss of consciousness, dizziness, neck pain, neck stiffness, throat pain, difficulty swallowing, difficulty breathing lying flat, shoulder pain, chest pain, abdominal pain, nausea, vomiting, constipation, diarrhea, urinary symptoms, or possibility being , loss of bowel and bladder control, trauma, injury, falls, difficulty walking due to pain, numbness or tingling sensation, calf pain, recent travel, recent major surgery in the last 3 weeks, calf pain, recent long travel, recent exposure to any illness, recent antibiotic use in the last 3 months, fever, chills, seizures. Past medical history: Surgical history: Social: Denies smoking, use of alcoholic beverages, use of illegal drugs. ROS All systems reviewed and are negative except as per history of present illness. Medications Home Meds Active Scripts Metaxalone* (Skelaxin*) 800 Mg Tablet, 800 MG PO TID PRN for MUSCLE SPASMS, #20 TAB Prov:PASILAGREYSON RICK F 02/10/19 Acetaminophen* (Tylophen*) 500 Mg Capsule, 1 CAP PO Q6H PRN for PAIN AND OR ELEVATED TEMP, #20 CAP Prov:PASILABANSHIVAR F 02/10/19 Acetaminophen* (Tylenol*) 325 Mg Tablet, 2 TAB PO Q6 PRN for PAIN AND OR ELEVATED TEMP, #20 TAB Prov:CHIRAG OZUNA PA-C 01/01/19 Acetaminophen* (Tylophen*) 500 Mg Capsule, 1 CAP PO Q6H PRN for PAIN AND OR ELEVATED TEMP, #20 CAP Prov:CHIRAG ANDERSON 12/21/18 Cephalexin* (Keflex*) 500 Mg Capsule, 500 MG PO QID for 5 Days, CAP Prov:PASILABANGREYSON F 10/08/18 Acetaminophen* (Tylophen*) 500 Mg Capsule, 1 CAP PO Q6H PRN for PAIN AND OR ELEVATED TEMP, #20 CAP Prov:KAMILAILAGREYSON RICK F 10/08/18 Norethindrone-E.estradiol-Iron (Taytulla 1 mg-20 Mcg Capsule) 1 Each Capsule, 1 EACH PO DAILY, #30 CAP Prov:GREYSON GROVER 10/08/18 Ferrous Sulfate* (Ferrous Sulfate*) 325 Mg Tabec, 325 MG PO BID for 60 Days, TAB Prov:GREYSON GROVER 10/08/18 Cephalexin* (Keflex*) 500 Mg Capsule, 500 MG PO BID for 7 Days, CAP Prov:ADRIAN HUBER PA-C 09/13/18 Medroxyprogesterone Acetate* (Provera*) 10 Mg Tablet, 10 MG PO DAILY for 5 Days, TAB Prov:ADRIAN HUBER PA-C 09/13/18 Hydrocortisone* Topical (Hydrocortisone* Topical) 2.5%-28.3 Gm Cream..g., 1 APPLIC TOP BID, #1 TUB Prov:SAMUEL CARNEY PA-C 06/30/18 Fluticasone Propionate (Flonase Allergy Relief) 9.9 Ml [place].susp, 2 SPRAY NASAL DAILY, #1 BOTTLE TO EACH NOSTRIL Prov:SAMUEL CARNEY PA-C 06/30/18 Cetirizine Hcl* (Zyrtec*) 10 Mg Capsule, 10 MG PO DAILY, #12 TAB.CHEW Prov:SAMUEL CARNEY PA-C 06/30/18 Guaifenesin-Dextromethorphan* (Robitussin* DM) 100MG/10MG/5ML Syrup, 10 ML PO Q6H PRN for COUGH for 5 Days, ML Prov:SAMUEL CARNEY PA-C 06/30/18 Acetaminophen* (Tylophen*) 500 Mg Capsule, 1 CAP PO Q6H PRN for PAIN AND OR ELEVATED TEMP, #20 CAP Prov:YUE WESTFALL NP 05/10/18 Cetirizine Hcl* (Zyrtec*) 10 Mg Capsule, 10 MG PO DAILY, #30 TAB.CHEW Prov:YUE WESTFALL NP 05/10/18 Amoxicillin* (Amoxicillin*) 500 Mg Cap, 500 MG PO TID for 10 Days, CAP Prov:YUE WESTFALL NP 05/10/18 Docusate Sodium* (Colace*) 100 Mg Capsule, 100 MG PO TID, #30 CAP Prov:YUE WESTFALL LEVEL VIAL CURVATURE GAUGER 01/31/18 Ferrous Sulfate* (Ferrous Sulfate*) 325 Mg Tabec, 325 MG PO BID, #60 TAB Prov:YUE WESFTALL LEVEL VIAL CURVATURE GAUGER 01/31/18 Tramadol HCl (Tramadol HCl) 50 Mg Tablet, 50 MG PO Q6 PRN for SEVERE PAIN LEVEL 7-10, #20 TAB Prov:YUE WESTFALL LEVEL VIAL CURVATURE GAUGER 01/31/18 Acetaminophen* (Tylenol*) 325 Mg Tablet, 2 TAB PO Q6, #30 TAB Prov:ABHINAV CABAC 12/05/17 Cyclobenzaprine Hcl* (Cyclobenzaprine Hcl*) 10 Mg Tablet, 10 MG PO TID, #15 TAB Prov:DESHAUN MERCER LEVEL VIAL CURVATURE GAUGER 11/22/17 Naproxen* (Naprosyn*) 500 Mg Tablet, 500 MG PO BID PRN for PAIN AND/OR INFLAMMATION, #30 TAB Prov:DESHAUN MERCER LEVEL VIAL CURVATURE GAUGER 11/22/17 Tramadol HCl (Tramadol HCl) 50 Mg Tablet, 50 MG PO Q6 PRN for SEVERE PAIN LEVEL 7-10, #20 TAB Prov:YUE WESTFALL LEVEL VIAL CURVATURE GAUGER 09/06/17 Acetaminophen* (Tylophen*) 500 Mg Capsule, 1 CAP PO Q6H PRN for PAIN AND OR ELEVATED TEMP, #20 CAP Prov:YUE WESTFALL LEVEL VIAL CURVATURE GAUGER 09/06/17 Prednisone* (Prednisone*) 20 Mg Tab, 60 MG PO DAILY for 5 Days, TAB Prov:JULIET SANTIAGO DO 07/14/17 Albuterol Sulfate* (Proair HFA*) 8.5 Gm Hfa.aer.ad, 2 PUFF INH Q4, #1 INHALER Prov:JULIET SANTIAGO DO 07/14/17 Ciprofloxacin Hcl* (Ciprofloxacin Hcl*) 500 Mg Tablet, 500 MG PO BID for 7 Days, #14 TAB Prov:CHIRAG OZUNAC 06/12/17 Nitrofurantoin Monohyd Macrocr* (Macrobid*) 100 Mg Capsr, 100 MG PO BID for 5 Days, CAP Prov:APARNA SANCHEZC 03/31/17 Metformin* (Glucophage* XR) 500 Mg Tab.sr.24h, 500 MG PO BID WITH MEALS, #120 6 Refills Prov:CHIQUITA LOMBARDI MD 02/17/17 Reported Medications Ferrous Sulfate (Iron) 325 Mg Capsule.er, 325 MG PO, CAP 10/08/16 Multivit/Min/Fol Ac/Iron/Pren* ( S*) 1 Tab Tab, 1 TAB PO DAILY, TAB 10/08/16 Allergies Allergies: Coded Allergies: ibuprofen (Verified Allergy, Severe, blisters in mouth, 02/10/19) oxycodone (Verified Allergy, Severe, itching, 02/10/19) PMhx/Soc Medical and Surgical Hx: pt denies Medical Hx History of Surgery: Yes (C Section x3,tubal ligation) Anesthesia Reaction: No Hx Neurological Disorder: No Hx Respiratory Disorders: Yes (ASTHMA ) Hx Cardiac Disorders: No Hx Psychiatric Problems: Yes (DEPRESSION) Hx Miscellaneous Medical Probl: Yes (-INDUCED HTN,DM) Hx Alcohol Use: No Hx Substance Use: No Hx Tobacco Use: No Smoking Status: Never smoker Physical Exam Vitals Physical Exam Const: No acute distress Head: Atraumatic Eyes: Normal Conjunctiva ENT: Normal External Ears, Nose and Mouth. Neck: Full range of motion. No meningismus. Resp: Clear to auscultation bilaterally Cardio: Regular rate and rhythm, no murmurs Abd: Soft, non tender, non distended. Normal bowel sounds. Negative Navarro sign. Negative [place]way sign (heel jar test). Negative psoas sign. Negative Rovsing sign. No CVA tenderness. No difficulty walking due to lower abdominal pain. Ambulatory with steady gait. Skin: No petechiae or rashes Back: No midline or flank tenderness. Positive right straight leg test. Po sitive right cross straight leg test. Negative left straight leg test. Positive left cross straight leg test. C-spine/T-spine/L-spine are midline with good and full range of motion and is no swelling/deformity/bulging/point of tenderness. Bilateral hips are stable and unremarkable. No saddle anesthesia. Ext: No cyanosis, or edema. Symmetrical knees. No calf tenderness bilat erally. Capillary refills to bilateral lower extremities are less than 2 seconds. No neurovascular deficits. Neur: Awake and alert. No neurological deficits. Psych: Normal Mood and Affect Results 24 hrs Laboratory Tests Test 02/10/19 21:38 02/10/19 21:39 Bedside Urine pH (LAB) 5.5 Bedside Urine Protein (LAB) Trace Bedside Urine Glucose (UA) Negative Bedside Urine Ketones (LAB) Trace Bedside Urine Blood 1+ Bedside Urine Nitrite (LAB) Negative Bedside Urine Leukocyte Esterase (L Negative POC Beta HCG, Qualitative NEGATIVE Current Medications Medications Dose Sig/Wendi Start Time Status Last (Trade) Ordered Route PRN Stop Time Admin Dose Reason Admin 500 mg ONCE STAT 02/10/19 DC 02/10/19 Acetaminophen PO 22:08 22:14 (Tylenol 02/10/19 22:10 Tab) Ondansetron 4 mg ONCE STAT 02/10/19 DC 02/10/19 HCl (Zofran ODT 22:09 22:14 Odt) 02/10/19 22:10 Morphine 4 mg ONCE STAT 02/10/19 DC 02/10/19 Sulfate IM 22:12 22:22 (morphine) 02/10/19 22:16 10 mg ONCE ONCE 02/10/19 DC 02/10/19 Dexamethasone IM 22:30 22:22 (Decadron) 02/10/19 22:31 Procedures/MDM Diagnostic tests: POC urine : Negative. POC urine dipstick: Reviewed. Treatment: Tylenol. Zofran. Morphine. Dexamethasone. Re-evaluation: Denies abdominal pain, back pain. No saddle anesthesia. No numbness or tingling sensation. No neurovascular deficits. No neurological deficits. Ambulatory with steady gait. Stated that she feels much better at this time. Stated that she is comfortable to go home. Differential diagnosis I have low suspicion for sepsis, pyelonephritis, nephrolithiasis, obstructing kidney stones, septic stone, cauda equina syndrome. Final diagnosis: Sciatica. Prescription: Skelaxin. Tylenol. Follow-up with PCP in the next 24-48 hours. PCP to do an MRI. PCP to refer patient to pain specialist in the next 3 to 5 days. Come back here in the emergency department for any new symptoms or any worsening symptoms. All questions and concerns were answered. Patient and family members verbalized understanding and agreed with plan of care. Hemodynamically stable on discharge. Departure Diagnosis: Primary Impression: Sciatica Additional Impression: Back pain Condition: Stable Additional Instructions: Follow-up with PCP in the next 24-48 hours. PCP to do an MRI. PCP to refer patient to pain specialist in the next 3 to 5 days. Come back here in the emergency department for any new symptoms or any worsening symptoms. GREYSON GROVER Feb 10, 2019 21:45
[2019-02-10] MEDS ORDERED: ACETAMINOPHEN 500 MG TAB PO STA (22:08)
[2019-02-10] MEDS ORDERED: ONDANSETRON (ODT) 4 MG TAB ODT STA (22:09)
[2019-02-10] MEDS ORDERED: morphine 4 MG/ML VIAL IM STA (22:12)
[2019-02-10] MEDS ORDERED: META-121 PO (22:16)
[2019-02-10] MEDS ORDERED: ACET500C5 PO (22:16)
[2019-02-10] MEDS ORDERED: DEXAMETHASONE 10 MG/ML 1 ML INJ IM ONE (22:30)
[2019-02-10 22:36] VITALS: BP 135/75; PULSE 89; RESP 17
== END 2019-02-10 22:50 | disposition home or self-care (01) ==
LOC: FTE 19:52
DX: M54.41 Lumbago with sciatica, right side (principal); J45.909 Unspecified asthma, uncomplicated; E11.9 Type 2 diabetes mellitus without complications; I10 Essential (primary) hypertension; Z79.84 Long term (current) use of oral hypoglycemic drugs
CPT/HCPCS: 81003; 81025; 96372; J1100; J2270; Z7502; Z7610

== ENCOUNTER 2019-02-28 15:18 | Emergency (ER) | payer OTHER ==
[~2019-02-28] VITALS: Ht 152.4 cm; Wt 90.0 kg
[~2019-02-28 15:18] MED LIST changes: +META-121 PO
[2019-02-28 15:21] VITALS: BP 134/69; PULSE 97; RESP 18; Ht 152.4 cm; Wt 90.0 kg
[2019-02-28] MEDS ORDERED: ACET500C5 PO (17:52)
--- NOTE | 2019-02-28 18:15 | ERD ---
ER Documentation Chief Complaint Chief Complaint lindsay leg pain HPI This is a 28-year-old female who presents to the ED complaining of right lower extremity pain times several months. Patient states her pain has been worse since yesterday. She endorses right calf pain, described as "cramping "in quality. She has palpitations, but no chest pain or shortness of breath. No recent immobilization. No OCP use. Pain shoots posteriorly up towards her right thigh. She also complaining of pain to her right knee, worse with flexion. Denies any direct trauma or fall. Denies any bilateral lower extremity numbness or tingling. No other concerns. ROS All systems reviewed and are negative except as per history of present illness. Medications Home Meds Active Scripts Acetaminophen* (Tylophen*) 500 Mg Capsule, 1 CAP PO Q6H PRN for PAIN AND OR ELEVATED TEMP, #20 CAP Prov:TAYLOR MCGOWAN PA-C 02/28/19 Metaxalone* (Skelaxin*) 800 Mg Tablet, 800 MG PO TID PRN for MUSCLE SPASMS, #20 TAB Prov:GREYSON GROVER 02/10/19 Acetaminophen* (Tylophen*) 500 Mg Capsule, 1 CAP PO Q6H PRN for PAIN AND OR ELEVATED TEMP, #20 CAP Prov:KAMILAILAGREYSON RICK 02/10/19 Acetaminophen* (Tylenol*) 325 Mg Tablet, 2 TAB PO Q6 PRN for PAIN AND OR ELEVATED TEMP, #20 TAB Prov:CHIRAG OZUNA PA-C 01/01/19 Acetaminophen* (Tylophen*) 500 Mg Capsule, 1 CAP PO Q6H PRN for PAIN AND OR ELEVATED TEMP, #20 CAP Prov:CHIRAG ANDERSON 12/21/18 Cephalexin* (Keflex*) 500 Mg Capsule, 500 MG PO QID for 5 Days, CAP Prov:KAMILAILAGREYSON RICK 10/08/18 Acetaminophen* (Tylophen*) 500 Mg Capsule, 1 CAP PO Q6H PRN for PAIN AND OR ELEVATED TEMP, #20 CAP Prov:GREYSON GROVER 10/08/18 Norethindrone-E.estradiol-Iron (Taytulla 1 mg-20 Mcg Capsule) 1 Each Capsule, 1 EACH PO DAILY, #30 CAP Prov:GREYSON GROVER 10/08/18 Ferrous Sulfate* (Ferrous Sulfate*) 325 Mg Tabec, 325 MG PO BID for 60 Days, TAB Prov:GREYSON GROVER 10/08/18 Cephalexin* (Keflex*) 500 Mg Capsule, 500 MG PO BID for 7 Days, CAP Prov:ADRIAN HUBER PA-C 09/13/18 Medroxyprogesterone Acetate* (Provera*) 10 Mg Tablet, 10 MG PO DAILY for 5 Days, TAB Prov:ADRIAN HUBER PA-C 09/13/18 Hydrocortisone* Topical (Hydrocortisone* Topical) 2.5%-28.3 Gm Cream..g., 1 APPLIC TOP BID, #1 TUB Prov:SAMUEL CARNEY PA-C 06/30/18 Fluticasone Propionate (Flonase Allergy Relief) 9.9 Ml [place].susp, 2 SPRAY NASAL DAILY, #1 BOTTLE TO EACH NOSTRIL Prov:SAMUEL CARNEY PA-C 06/30/18 Cetirizine Hcl* (Zyrtec*) 10 Mg Capsule, 10 MG PO DAILY, #12 TAB.CHEW Prov:SAMUEL CARNEY PA-C 06/30/18 Guaifenesin-Dextromethorphan* (Robitussin* DM) 100MG/10MG/5ML Syrup, 10 ML PO Q6H PRN for COUGH for 5 Days, ML Prov:SAMUEL CARNEY PA-C 06/30/18 Acetaminophen* (Tylophen*) 500 Mg Capsule, 1 CAP PO Q6H PRN for PAIN AND OR ELEVATED TEMP, #20 CAP Prov:YUE WESTFALL NP 05/10/18 Cetirizine Hcl* (Zyrtec*) 10 Mg Capsule, 10 MG PO DAILY, #30 TAB.CHEW Prov:YUE WESTFALL NP 05/10/18 Amoxicillin* (Amoxicillin*) 500 Mg Cap, 500 MG PO TID for 10 Days, CAP Prov:YUE WESTFALL NP 05/10/18 Docusate Sodium* (Colace*) 100 Mg Capsule, 100 MG PO TID, #30 CAP Prov:YUE WESTFALL NP 01/31/18 Ferrous Sulfate* (Ferrous Sulfate*) 325 Mg Tabec, 325 MG PO BID, #60 TAB Prov:YUE WESTFALL [employer]ISER 01/31/18 Tramadol HCl (Tramadol HCl) 50 Mg Tablet, 50 MG PO Q6 PRN for SEVERE PAIN LEVEL 7-10, #20 TAB Prov:YUE WESTFALL [employer] AP[employer]ISER 01/31/18 Acetaminophen* (Tylenol*) 325 Mg Tablet, 2 TAB PO Q6, #30 TAB Prov:ABHINAV CABA PA-C 12/05/17 Cyclobenzaprine Hcl* (Cyclobenzaprine Hcl*) 10 Mg Tablet, 10 MG PO TID, #15 TAB Prov:DESHAUN MERCER [employer] APPR[employer]ISER 11/22/17 Naproxen* (Naprosyn*) 500 Mg Tablet, 500 MG PO BID PRN for PAIN AND/OR INFLAMMATION, #30 TAB Prov:DESHAUN MERCER [employer] APPR[employer]ISER 11/22/17 Tramadol HCl (Tramadol HCl) 50 Mg Tablet, 50 MG PO Q6 PRN for SEVERE PAIN LEVEL 7-10, #20 TAB Prov:YUE WESTFALL [employer]ISER 09/06/17 Acetaminophen* (Tylophen*) 500 Mg Capsule, 1 CAP PO Q6H PRN for PAIN AND OR ELEVATED TEMP, #20 CAP Prov:YUE WESTFALL [employer]ER 09/06/17 Prednisone* (Prednisone*) 20 Mg Tab, 60 MG PO DAILY for 5 Days, TAB Prov:JULIET SANTIAGO DO 07/14/17 Albuterol Sulfate* (Proair HFA*) 8.5 Gm Hfa.aer.ad, 2 PUFF INH Q4, #1 INHALER Prov:JAMAICA SANTIAGOSTOLOS AEbenezer DO 07/14/17 Ciprofloxacin Hcl* (Ciprofloxacin Hcl*) 500 Mg Tablet, 500 MG PO BID for 7 Days, #14 TAB Prov:CHIRAG OZUNA PA-C 06/12/17 Nitrofurantoin Monohyd Macrocr* (Macrobid*) 100 Mg Capsr, 100 MG PO BID for 5 Days, CAP Prov:APARNA SANCHEZ PA-C 03/31/17 Metformin* (Glucophage* XR) 500 Mg Tab.sr.24h, 500 MG PO BID WITH MEALS, #120 6 Refills Prov:CHIQUITA LOMBARDI MD 02/17/17 Reported Medications Ferrous Sulfate (Iron) 325 Mg Capsule.er, 325 MG PO, CAP 10/08/16 Multivit/Min/Fol Ac/Iron/Pren* ( S*) 1 Tab Tab, 1 TAB PO DAILY, TAB 10/08/16 Allergies Allergies: Coded Allergies: ibuprofen (Verified Allergy, Severe, blisters in mouth, 02/10/19) oxycodone (Verified Allergy, Severe, itching, 02/10/19) PMhx/Soc History of Surgery: Yes (C Section x3,tubal ligation) Anesthesia Reaction: No Hx Neurological Disorder: No Hx Respiratory Disorders: Yes (ASTHMA ) Hx Cardiac Disorders: No Hx Psychiatric Problems: Yes (DEPRESSION) Hx Miscellaneous Medical Probl: Yes (-INDUCED HTN,DM) Hx Alcohol Use: No Hx Substance Use: No Hx Tobacco Use: No Smoking Status: Never smoker FmHx Family History: No diabetes Physical Exam Vitals Vital Signs Date Temp Pulse Resp B/P (MAP) Pulse Ox O2 O2 Flow FiO2 Time Delivery Rate 02/28/19 98.1 97 18 134/69 99 15:21 (90) Physical Exam Const: No acute distress Head: Atraumatic Eyes: Normal Conjunctiva ENT: Normal External Ears, Nose and Mouth. Neck: Full range of motion. No meningismus. Resp: Clear to auscultation bilaterally Cardio: Regular rate and rhythm, no murmurs Skin: No petechiae or rashes Lower Extremity - right Skin: No laceration Compartments: Soft Motor: + pain w/ flexion of right knee, full FROM of ankle and foot. Sensation: DP/PT pulses intact Bones: + Mild TTP to right medial joint line, no effusion. Nontender malleoli/foot Joints: No effusion or laxity Pulses/Perfusion: 2+ DP, Capillary refill < 2 seconds Ext: + TTP of right calf, no appreciable swelling, pain w/ dorisflexion, right RLE/calf normal. Neur: Awake and alert Psych: Normal Mood and Affect Procedures/MDM LABS & DIAGNOSTIC IMAGING: PROCEDURE: RIGHT knee x-ray CLINICAL INDICATION: Knee pain TECHNIQUE: AP, lateral and oblique views of the knee were obtained. COMPARISON: None FINDINGS: There is normal mineralization. No acute fracture or dislocation is seen. There is no joint effusion. There are no significant degenerative changes. There is no significant soft tissue swelling. RPTAT: AA IMPRESSION: Normal x-ray of the right knee. PROCEDURE: US Lower extremity Venous. CLINICAL INDICATION: Pain and swelling TECHNIQUE: Multiple sonographic images of the right lower extremity deep venous system was obtained utilizing grayscale, color-flow, compressive sonography and doppler imaging with augmentation. The images were reviewed on a PACS workstation. COMPARISON: None. FINDINGS: There is normal compressibility and flow within the right common femoral, deep femoral, superficial femoral and popliteal veins. Normal respiratory variation and augmentation is seen. There is normal color flow and compressibility of right posterior tibial and peroneal veins IMPRESSION: No sonographic evidence for right lower extremity deep venous thrombosis. ED COURSE: Patient placed in right knee immobilizer: Neurovascularly intact post splint placement with good fit. MEDICAL DECISION MAKIN-year-old female presents with atraumatic right knee pain and right calf pain. X-ray of the knee is unremarkable. Ultrasound is also unremarkable, no DVT. Symptoms are likely musculoskeletal, ddx includes strain versus tendinopathy versus ligamental injury. I recommended outpatient MRI through her PCP. Patient requested a knee immobilizer which was given. Patient is otherwise neurovascularly intact. I have low suspicion for compartment syndrome, neurologic injury, vascular injury or tendon laceration. PRESCRIPTIONS: Tylenol SPECIALIST FOLLOW UP RECOMMENDED: Ortho Departure Diagnosis: Primary Impression: Pain of right leg Condition: Stable Patient Instructions: Knee Pain, Uncertain Cause Referrals: [facility] Hours: Mon-Fri 9:00 AM - 5:00 PM Additional Instructions: See primary care doctor tomorrow as planned. He can take copies of your imaging report with you. You may need MRI to rule out any ligamentous injury. Wear the knee immobilizer as needed. Return here for any new or worsening symptoms. TAYLOR MCGOWAN PA-C Feb 28, 2019 18:14
== END 2019-02-28 18:03 | disposition home or self-care (01) ==
LOC: FTE 15:18
DX: M79.604 Pain in right leg (principal); J45.909 Unspecified asthma, uncomplicated
CPT/HCPCS: 29505; 73562; 93971; Z7502

== ENCOUNTER 2019-03-06 00:39 | Emergency (ER) | payer OTHER ==
[~2019-03-06] VITALS: Ht 162.6 cm; Wt 115.5 kg
[2019-03-06 00:46] VITALS: BP 122/75; PULSE 94; RESP 19; Ht 162.6 cm; Wt 115.5 kg
[2019-03-06] MEDS ORDERED: ONDANSETRON (ODT) 4 MG TAB ODT STA (01:29)
[2019-03-06] MEDS ORDERED: BUTA1CAP38 PO (01:35)
[2019-03-06] MEDS ORDERED: ONDA4TAB14 PO (01:36)
--- NOTE | 2019-03-06 01:36 | ERD ---
ER Documentation Chief Complaint Chief Complaint bib self, cc: headache and vomiting x 2 days, HPI 28-year-old female with history of hypothyroidism and anemia presents for headache and vomiting x2 days. She states that the pain is 6 out of 10, noted in the confucianist area both sides. Described as a pulsitile pain. No pain radiation. She took some Tylenol with only mild relief. She denies neck pain or stiffness, no fever. There is associated vomiting. Denies chest pain or shortness of breath. She has had prior similar headaches in the past. No other modifying factors noted, no other treatments tried at home. ROS All systems reviewed and are negative except as per history of present illness. Medications Home Meds Active Scripts Ondansetron (Ondansetron Odt) 4 Mg Tab.rapdis, 4 MG PO Q6H PRN for NAUSEA AND/OR VOMITING, #20 TAB Prov:ZAINAB URIAS DO 03/06/19 Nkysrfrham-Cdhlpxvvzpylo-Lsdqvxiq* (Fioricet*) 50-300-40 Mg Capsule, 1 CAP PO Q4H PRN for HEADACHE, #30 CAP Prov:ZAINAB URIAS DO 03/06/19 Acetaminophen* (Tylophen*) 500 Mg Capsule, 1 CAP PO Q6H PRN for PAIN AND OR ELEVATED TEMP, #20 CAP Prov:TAYLOR MCGOWAN PA-C 02/28/19 Metaxalone* (Skelaxin*) 800 Mg Tablet, 800 MG PO TID PRN for MUSCLE SPASMS, #20 TAB Prov:KAMILAILAGREYSON RICK F 02/10/19 Acetaminophen* (Tylophen*) 500 Mg Capsule, 1 CAP PO Q6H PRN for PAIN AND OR ELEVATED TEMP, #20 CAP Prov:PASILABANSHIVAR F 02/10/19 Acetaminophen* (Tylenol*) 325 Mg Tablet, 2 TAB PO Q6 PRN for PAIN AND OR ELEVATED TEMP, #20 TAB Prov:CHIRAG OZUNA PA-C 01/01/19 Acetaminophen* (Tylophen*) 500 Mg Capsule, 1 CAP PO Q6H PRN for PAIN AND OR ELEVATED TEMP, #20 CAP Prov:CHIRAG ANDERSON 12/21/18 Cephalexin* (Keflex*) 500 Mg Capsule, 500 MG PO QID for 5 Days, CAP Prov:KAMILAILABANGREYSON 10/08/18 Acetaminophen* (Tylophen*) 500 Mg Capsule, 1 CAP PO Q6H PRN for PAIN AND OR ELEVATED TEMP, #20 CAP Prov:GREYSON GROVER 10/08/18 Norethindrone-E.estradiol-Iron (Taytulla 1 mg-20 Mcg Capsule) 1 Each Capsule, 1 EACH PO DAILY, #30 CAP Prov:GREYSON RGOVER 10/08/18 Ferrous Sulfate* (Ferrous Sulfate*) 325 Mg Tabec, 325 MG PO BID for 60 Days, TAB Prov:GREYSON GROVER 10/08/18 Cephalexin* (Keflex*) 500 Mg Capsule, 500 MG PO BID for 7 Days, CAP Prov:ADRIAN HUBER PA-C 09/13/18 Medroxyprogesterone Acetate* (Provera*) 10 Mg Tablet, 10 MG PO DAILY for 5 Days, TAB Prov:ADRIAN HUBER PA-C 09/13/18 Hydrocortisone* Topical (Hydrocortisone* Topical) 2.5%-28.3 Gm Cream..g., 1 APPLIC TOP BID, #1 TUB Prov:SAMUEL CARNEY PA-C 06/30/18 Fluticasone Propionate (Flonase Allergy Relief) 9.9 Ml [place].susp, 2 SPRAY NASAL DAILY, #1 BOTTLE TO EACH NOSTRIL Prov:SAMUEL CARNEY PA-C 06/30/18 Cetirizine Hcl* (Zyrtec*) 10 Mg Capsule, 10 MG PO DAILY, #12 TAB.CHEW Prov:SAMUEL CARNEY PA-C 06/30/18 Guaifenesin-Dextromethorphan* (Robitussin* DM) 100MG/10MG/5ML Syrup, 10 ML PO Q6H PRN for COUGH for 5 Days, ML Prov:SAMUEL CARNEY PA-C 06/30/18 Acetaminophen* (Tylophen*) 500 Mg Capsule, 1 CAP PO Q6H PRN for PAIN AND OR ELEVATED TEMP, #20 CAP Prov:YUE WESTFALL NP 05/10/18 Cetirizine Hcl* (Zyrtec*) 10 Mg Capsule, 10 MG PO DAILY, #30 TAB.CHEW Prov:YUE WESTFALL NP 05/10/18 Amoxicillin* (Amoxicillin*) 500 Mg Cap, 500 MG PO TID for 10 Days, CAP Prov:YUE WESTFALL NP 05/10/18 Docusate Sodium* (Colace*) 100 Mg Capsule, 100 MG PO TID, #30 CAP Prov:YUE WESTFALL [employer]EDULER 01/31/18 Ferrous Sulfate* (Ferrous Sulfate*) 325 Mg Tabec, 325 MG PO BID, #60 TAB Prov:YUE WESTFALL [employer] SCHEDULER 01/31/18 Tramadol HCl (Tramadol HCl) 50 Mg Tablet, 50 MG PO Q6 PRN for SEVERE PAIN LEVEL 7-10, #20 TAB Prov:YUE WESTFALL NP 01/31/18 Acetaminophen* (Tylenol*) 325 Mg Tablet, 2 TAB PO Q6, #30 TAB Prov:ABHINAV CABA PA-C 12/05/17 Cyclobenzaprine Hcl* (Cyclobenzaprine Hcl*) 10 Mg Tablet, 10 MG PO TID, #15 TAB Prov:DESHAUN MERCER [employer] SCHEDULER 11/22/17 Naproxen* (Naprosyn*) 500 Mg Tablet, 500 MG PO BID PRN for PAIN AND/OR INFLAMMATION, #30 TAB Prov:DESHAUN MERCER [employer] SCHEDULER 11/22/17 Tramadol HCl (Tramadol HCl) 50 Mg Tablet, 50 MG PO Q6 PRN for SEVERE PAIN LEVEL 7-10, #20 TAB Prov:YUE WESTFALL NP 09/06/17 Acetaminophen* (Tylophen*) 500 Mg Capsule, 1 CAP PO Q6H PRN for PAIN AND OR ELEVATED TEMP, #20 CAP Prov:YUE WESTFALL [employer] SCHEDULER 09/06/17 Prednisone* (Prednisone*) 20 Mg Tab, 60 MG PO DAILY for 5 Days, TAB Prov:JULIET SANTIAGO DO 07/14/17 Albuterol Sulfate* (Proair HFA*) 8.5 Gm Hfa.aer.ad, 2 PUFF INH Q4, #1 INHALER Prov:JULIET SANTIAGO DO 07/14/17 Ciprofloxacin Hcl* (Ciprofloxacin Hcl*) 500 Mg Tablet, 500 MG PO BID for 7 Days, #14 TAB Prov:CHIRAG OZUNA PA-C 06/12/17 Nitrofurantoin Monohyd Macrocr* (Macrobid*) 100 Mg Capsr, 100 MG PO BID for 5 Days, CAP Prov:APARNA SANCHEZ PA-C 03/31/17 Metformin* (Glucophage* XR) 500 Mg Tab.sr.24h, 500 MG PO BID WITH MEALS, #120 6 Refills Prov:CHIQUITA LOMBARDI MD 02/17/17 Reported Medications Ferrous Sulfate (Iron) 325 Mg Capsule.er, 325 MG PO, CAP 10/08/16 Multivit/Min/Fol Ac/Iron/Pren* ( S*) 1 Tab Tab, 1 TAB PO DAILY, TAB 10/08/16 Allergies Allergies: Coded Allergies: ibuprofen (Verified Allergy, Severe, blisters in mouth, 02/10/19) oxycodone (Verified Allergy, Severe, itching, 02/10/19) PMhx/Soc History of Surgery: Yes (C Section x3,tubal ligation) Anesthesia Reaction: No Hx Neurological Disorder: No Hx Respiratory Disorders: Yes (ASTHMA ) Hx Cardiac Disorders: No Hx Psychiatric Problems: Yes (DEPRESSION) Hx Miscellaneous Medical Probl: Yes (-INDUCED HTN,DM) Hx Alcohol Use: No Hx Substance Use: No Hx Tobacco Use: No Smoking Status: Never smoker FmHx Family History: No coronary disease Physical Exam Vitals Vital Signs Date Temp Pulse Resp B/P (MAP) Pulse Ox O2 O2 Flow FiO2 Time Delivery Rate 03/06/19 98.0 94 19 122/75 100 00:46 (91) Physical Exam Const: No acute distress Head: Atraumatic, no temporal area tenderness to palpation Eyes: Normal Conjunctiva, pupils equal, round, reactive to light bilaterally ENT: Normal External Ears, bilateral tympanic membrane intact without erythema or bulging noted, Nose and Mouth examination normal. No tonsillar swelling or exudate noted Neck: Full range of motion. No meningismus, no bruits noted Resp: Clear to auscultation bilaterally Cardio: Regular rate and rhythm, no murmurs, bilateral radial and dorsalis pedis pulses intact Skin: No petechiae or rashes Ext: No cyanosis, or edema, 5 out of 5 muscular bilateral upper and lower extremities Neur: Awake and alert, bilateral upper and lower extremity sensation intact Psych: Normal Mood and Affect Results 24 hrs Current Medications Medications Dose Sig/Wendi Start Time Status Last (Trade) Ordered Route PRN Stop Time Admin Dose Reason Admin Ondansetron 4 mg ONCE STAT 03/06/19 DC 03/06/19 HCl (Zofran ODT 01:29 01:35 Odt) 03/06/19 01:30 Procedures/MDM Medical Decision Making: Differential diagnosis includes but not limited to primary headache, subarachnoid hemorrhage, meningitis, glaucoma, hypertension, cerebral ischemia, carotid or vertebral arterial dissection, brain tumor. Patient appeared well on physical examination, nontoxic appearing. No history of fever. There is low suspicion for meningitis. Patient has no vision changes and pupils are reactive bilaterally, low suspicion for glaucoma. There is also no focal neurologic deficits to suggest a brain tumor. Patient has normal sensation and muscle strength, low suspicion for cerebral ischemia. Given headache is similar to prior headaches, patient possibly has a primary headache. Patient was given Zofran in the ER with improvement in her nausea vomiting. Patient given prescription for supportive medication(s). Patient advised to follow up with PCP in 1-2 days. Patient advised to return to ED for new or worsening symptoms. Patient stable on discharge from the ED. Disclaimer: Inadvertent spelling and grammatical errors are likely due to EHR/dictation software use and do not reflect on the overall quality of patient care. Also, please note that the electronic time recorded on this note does not necessarily reflect the actual time of the patient encounter. Departure Diagnosis: Primary Impression: Headache Headache type: unspecified Headache chronicity pattern: unspecified pattern Intractability: not intractable Qualified Codes: R51 - Headache Condition: Fair Patient Instructions: Self-Care for Headaches Referrals: [facility] YOU HAVE RECEIVED A MEDICAL SCREENING EXAM AND THE RESULTS INDICATE THAT YOU DO NOT HAVE A CONDITION THAT REQUIRES URGENT TREATMENT IN THE EMERGENCY DEPARTMENT. FURTHER EVALUATION AND TREATMENT OF YOUR CONDITION CAN WAIT UNTIL YOU ARE SEEN IN YOUR DOCTORS OFFICE WITHIN THE NEXT 1-2 DAYS. IT IS YOUR RESPONSIBILITY TO MAKE AN APPOINTMENT FOR FOLOW-UP CARE. IF YOU HAVE A PRIMARY DOCTOR --you should call your primary doctor and schedule an appointment IF YOU DO NOT HAVE A PRIMARY DOCTOR YOU CAN CALL OUR PHYSICIAN REFERRAL HOTLINE AT IF YOU CAN NOT AFFORD TO SEE A PHYSICIAN YOU CAN CHOSE FROM THE FOLLOWING [facility] [address] [facility] [facility] [address] [facility] [facility] [address] [facility] [facility] [address] [facility]. [facility] [address] [facility]. [facility] [address] Additional Instructions: Call your primary care doctor TOMORROW for an appointment during the next 1-2 days.See the doctor sooner or return here if your condition worsens before your appointment time. ZAINAB URIAS DO Mar 06, 2019 01:36
== END 2019-03-06 01:56 | disposition home or self-care (01) ==
LOC: FTE 00:39
DX: R51 Headache (principal); R11.10 Vomiting, unspecified; E03.9 Hypothyroidism, unspecified; J45.909 Unspecified asthma, uncomplicated; Z79.84 Long term (current) use of oral hypoglycemic drugs
CPT/HCPCS: Z7502; Z7610; 99283

== ENCOUNTER 2019-04-25 18:08 | Emergency (ER) | payer OTHER ==
[~2019-04-25] VITALS: Ht 154.9 cm; Wt 117.3 kg
[~2019-04-25 18:08] MED LIST changes: +BUTA1CAP38 PO; +ONDA4TAB14 PO; +TRIA15CR55 TOP
[2019-04-25 18:24] VITALS: Ht 154.9 cm; Wt 117.3 kg
[2019-04-25 22:47] VITALS: BP 136/78; PULSE 78; RESP 20
== END 2019-04-25 22:48 | disposition home or self-care (01) ==
LOC: FTE 18:08
DX: R60.9 Edema, unspecified (principal); R21 Rash and other nonspecific skin eruption
CPT/HCPCS: 36415; 71046; 80048; 81025; 83880; 84484; 85025; 93005; Z7502; 81003

== ENCOUNTER 2019-05-16 09:16 | Emergency (ER) | payer OTHER ==
[~2019-05-16] VITALS: Ht 154.9 cm; Wt 112.5 kg
[2019-05-16 09:21] VITALS: Ht 154.9 cm; Wt 112.5 kg
[2019-05-16] MEDS ORDERED: ACETAMINOPHEN 325 MG TAB PO ONE (10:00)
[2019-05-16 11:45] VITALS: BP 138/88; PULSE 86; RESP 18
== END 2019-05-16 11:46 | disposition home or self-care (01) ==
LOC: FTE 09:16
DX: R07.9 Chest pain, unspecified (principal); Z79.84 Long term (current) use of oral hypoglycemic drugs
CPT/HCPCS: 71045; 81025; 93005; Z7502; Z7610